=== PATIENT | female | born 1985 | race Caucasian/White ===

== ENCOUNTER 2024-07-16 15:26 | Emergency (ER) | payer OTHER ==
[~2024-07-16] VITALS: Ht 160 cm; Wt 130.5 kg
--- NOTE | 2024-07-16 16:11 | ED.PDOC ---
HPI Comments 38 y/o F, presents to the ED for CC of right rib pain. Patient states, that she has been experiencing right rib pain at the mid axillary line in her lower ribcage area. Pain is is worse with deep inspiration. Today patient checked her blood pressure and it was elevated which is not normal for her. She is not on any blood pressure medications. Pain is nonradiating. Denies any fall or trauma or injury or heavy lifting. Patient took some ibuprofen for her pain which helped a little bit. Patient has also had an episode of fluttering that lasted no more than two beats and resolved. 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 Initial Vitals: Temp:97.6 BP:195/99 HR:96 RR:18 O2 Sat.:98 Past Medical History: CONGENITAL HEART DEFECT Past Surgical History: OPEN HEART SURGERY Social History: Denies smoking, ETOH, and drug use Medication: Denies Allergies: PCN, SULFA HPI: Poor Historian. REVIEW OF SYSTEMS: CONSTITUTIONAL: Denies acute: fever, diaphoresis, chills, generalized weakness. HEAD: Denies acute: headache, photophobia Eyes: Denies acute: Double vision, vision loss, eye pain, eye discharge. EARS: Denies acute: tinnitus, hearing loss, ear discharge, ear pain, THROAT: Denies acute: sore throat, swelling, difficulty swallowing , pain with swallowing, change in voice. NECK: Denies acute: neck pain, neck swelling, stiff neck. HEART: Denies acute : chest pain, palpitations, LUNGS: Denies acute: SOB, wheezing, cough, hemoptysis ABDOMEN: Denies acute: abdominal pain, Nausea, Vomiting, diarrhea, melena , hematemesis, hematochezia SKIN: Denies acute: rash, redness, lesions, itchiness. EXTREMITIES: Denies acute: calf pain, numbness, tingling, weakness, denies pain in extremity. Denies acute: Low back pain. Neuro: Denies acute: focal neurological deficit, motor or sensory focal neurological deficit, tremors, seizure like activity, confusion, dizziness, change in mental status, loss of bowel or bladder function, cauda equina like symptoms. : Denies acute: dysuria, hematuria, flank pain, increase in urinary frequency. PSYCH: Denies acute: hallucination, suicidal ideation, homicidal ideation. FEMALE: Denies acute: abnormal vaginal bleeding, foul odor, unusual discharge. PHYSICAL EXAM: General: no acute distress, awake and alert. Head: normocephalic, atraumatic. Neck: supple, trachea is midline, no swelling. Throat: Normal phonation. Eyes:, no erythema, no purulent discharge, no proptosis, no icterus. Heart: regular rate, regular rhythm, no significant murmur appreciated. Lungs: no apparent respiratory distress, Able to speak in full sentences. No wheezing, no rhonchi, no crackles. No stridors Clear to auscultation bilaterally. Abdomen: non tender to palpation, non distended, soft, no guarding, no rebound, + bowel sounds. Obese Palpation of the area of the ribcage where she points where her pain is is tenderness to palpation. Neuro: Awake, Alert, oriented to name, self, situation, follows commands GCS=15. Speech is normal. Skin: no petechia, no purpura, no cyanosis, non-pale, not jaundice. Lower extremities: --no - Pitting edema no deformity, no focal swelling, no calf TTP. Makes eye contact. moves all four extremities. Face: no apparent facial droop. Ambulating in the ED independently. Chief Complaint: Rib Pain Time Seen by MD: 15:57 Reviewed Notes: Nurses Notes, Medications, Allergies Allergies: Coded Allergies: Penicillins (Verified Allergy, Unknown, 07/16/24) Sulfa Antibiotics (Verified Allergy, Unknown, 07/16/24) Information Source: Patient Mode of Arrival: Ambulatory Severity: Moderate Timing: Days Duration: Since onset Prehospital treatment: None Cardiac Risk Factors: None PE Risk Factors: None Was a procedure done? Was a procedure done?: No CP Differential Dx Differential Diagnosis: N/A Differential Diagnosis: Angina, Cholelithiasis, Costochondritis, Other (Ddx include but not limitied to gastritis, musculoskeletal pain, radiculopathy, atypical chest pain, dissection, aneurysm, ACS, unstable angina, hiatal hernia, GERD, anxiety, costochondritis, PE, pneumothroax, neoplasm, cardiac ischemia, drug abuse, anemia.) X-Ray, Labs, Meds, VS Vital Signs Date Time Temp Pulse Resp B/P (MAP) Pulse Ox O2 Delivery O2 Flow Rate FiO2 07/17/24 01:20 98.0 74 20 159/96 (117) 98 98.0 07/17/24 00:59 82 145/101 07/16/24 22:57 83 153/113 07/16/24 22:54 83 17 153/113 (126) 95 07/16/24 22:37 98.3 88 18 185/106 (132) 96 98.3 07/16/24 17:22 160/82 07/16/24 17:22 81 16 160/82 (108) 96 07/16/24 16:23 96 16 96 Room Air* 0 21 07/16/24 16:23 98.3 96 16 162/116 (131) 96 98.3 07/16/24 16:22 162/116 07/16/24 15:39 97.6 96 18 179/97 (124) 98 Lab Test 07/16/24 17:47 07/16/24 16:24 07/16/24 16:13 Range/Units Troponin I High Sensitivity 5 5 </=34 ng/L White Blood Count 10.5 4.4-10.8 10^3/uL Red Blood Count 4.89 4.0-5.20 10^6/uL Hemoglobin 14.3 12.2-16.2 g/dL Hematocrit 43.5 36.0-46.0 % Mean Corpuscular Volume 89.0 80.0-100.0 fL Mean Corpuscular Hemoglobin 29.2 28.0-32.0 pg Mean Corpuscular Hemoglobin Concent 32.9 32.0-36.0 g/dL Red Cell Distribution Width 14.8 H 11.8-14.3 % Platelet Count 354 140-450 10^3/uL Mean Platelet Volume 7.9 6.9-10.8 fL Neutrophils (%) (Auto) 74.6 37.0-80.0 % Lymphocytes (%) (Auto) 17.0 10.0-50.0 % Monocytes (%) (Auto) 6.3 0.0-12.0 % Eosinophils (%) (Auto) 1.1 0.0-7.0 % Basophils (%) (Auto) 1.0 0.0-2.0 % Neutrophils # (Auto) 7.8 1.6-8.6 10 ^3/uL Lymphocytes # (Auto) 1.8 0.4-5.4 10 ^3/uL Monocytes # (Auto) 0.7 0-1.3 10 ^3/uL Eosinophils # (Auto) 0.1 0-0.8 10 ^3/uL Basophils # (Auto) 0.1 0-0.2 10 ^3/uL Nucleated Red Blood Cells 0.0 % D-Dimer, Quantitative 0.51 H 0.0-0.49 mg/L FEU Sodium Level 140 136-145 mmol/L Potassium Level 4.4 3.5-5.1 mmol/L Chloride Level 107 98-107 mmol/L Carbon Dioxide Level 25 20-31 mmol/L Anion Gap 8 5-15 Blood Urea Nitrogen 24 H 9-23 mg/dL Creatinine 0.84 0.550-1.02 mg/dL Glomerular Filtration Rate Calc 92 >90 mL/min BUN/Creatinine Ratio 28.6 H 10.0-20.0 Serum Glucose 104 74-106 mg/dL Lactic Acid Level 1.1 0.4-2.0 mmol/L Calcium Level 9.7 8.7-10.4 mg/dL Magnesium Level 2.1 1.6-2.6 mg/dL Total Bilirubin 0.3 0.2-1.0 mg/dL Aspartate Amino Transferase (AST) 17 13-40 U/L Alanine Aminotransferase (ALT) 20 7-40 U/L Alkaline Phosphatase 102 46-116 U/L Total Protein 7.0 5.7-8.2 g/dL Albumin 4.6 3.2-4.8 g/dL Urine Color Light-yellow Yellow Urine Clarity Clear Clear Urine pH 6.5 5.0-9.0 Urine Specific [place] 1.024 1.001-1.035 Urine Protein Negative Negative Urine Ketones Negative Negative Urine Blood 2+ H Negative /uL Urine Nitrite Negative Negative Urine Bilirubin Negative Negative Urine Urobilinogen Normal Negative mg/dL Urine Leukocyte Esterase Negative Negative /uL Urine RBC 55 0 - 4 /hpf Urine Microscopic WBC 3 0-5 /HPF Urine Squamous Epithelial Cells Few <5 /hpf Urine Bacteria None seen None Seen /hpf Urine Glucose Normal Normal mg/dL Urine Test Negative Negative Urine Opiates Screen Neg NEGATIVE Urine Fentanyl Screen Neg NEGATIVE Urine Barbiturates Screen Neg NEGATIVE Urine Phencyclidine Screen Neg NEGATIVE Urine Amphetamines Screen Neg NEGATIVE Urine Benzodiazepines Screen Neg NEGATIVE Urine Cocaine Screen Neg NEGATIVE Urine Cannabinoids Screen Neg NEGATIVE [facility] [id number] [facility] [address] Ph: [phone] DIAGNOSTIC IMAGING Diagnostic Imaging Report : [id number] Signed PATIENT: AMEYA BARRON ACCT: [id number] UNIT: [id number] : 1985 LOC: ER ROOM / BED: / AGE / SEX: 38 / F ADM STATUS: REG ER SERVICE 1540 ORDERING PHYSICIAN: SHE LEVINE DO PROCEDURE(s): CXRP - CHEST PORTABLE REASON: r RIB PAIN, PALPITATION ORDER NUMBER(s): [id number], ACCESSION NUMBER(s): [id number] CHEST RADIOGRAPH Indication: r RIB PAIN, PALPITATION Technique: Single frontal view of the chest was obtained COMPARISON: None FINDINGS: Lines and Tubes: Median sternotomy Lungs: Mild congestion Pleura: No effusion. No pneumothorax. Cardiomediastinal contours: Unremarkable Bones: Unremarkable IMPRESSION: Mild diffuse congestion. No definite appreciable displaced right rib fracture. ATED BY: JUNAID MARTINS MD DICTATED DATE/TIME: 07/16/241642 SIGNED BY: JUNAID MARTINS MD SIGNED DATE/TIME: 07/16/241642 CC: Time of 1ST Reevaluation: 16:27 Reevaluation 1ST: Unchanged Patient Education/Counseling: Diagnosis, Treatment Family Education/Counseling: Other Comments Patient presented with the above HPI.-- RIB PAIN ---workup was initiated. patient was found with the above mentioned diagnosis. the following medications were ordered: NITROGLYCERIN SUBLINGUAL, KETOROLAC INJECTION the following tests were ordered: LABS, EKG, CXR Patient ED course and VS have been stabilized. Patient has been reassessed in the ED and remained in a stable condition. Pertinent incidental findings were discussed with the patient and/or family. Patient/family voices understanding and is agreeable with plan. Patient has been observed in the ED adequate length of time to insure improvement/stability. Escalation of care considered: Consideration of escalation to observation or admission Patient was ADMITTED to the medicine team for further evaluation and treatment of their presentation. Patient was DISCHARGED home in a stable condition. All the reports of any imaging studies that were ordered by myself were reviewed by myself. Departure 1 Departure Time of Disposition: 22:33 Impression: Primary Impression: Chest pain Additional Impressions: Abnormal finding on CT scan Hypertension Adrenal mass Disposition: HOME / SELF CARE / HOMELESS Condition: Stable Additional Instructions: Additional discharge instructions: You MUST follow-up with your primary care/family doctor in 1 to 2 days. If you are unable to see your primary care/family doctor, please return to our emergency room for re-assessment and re-evaluation in 1 to 2 days. Return to the emergency room here in our facility or to the nearest ER [facility] if your symptoms change or worsen. CONSULTATIONS: you MUST Follow-up for consultation as soon as possible with: -cardiology in 1-2 days. Please call for appointment. You MUST call the consultants office yourself to make an appointment. You may need to arrange that through your insurance and/or your primary/family doctor. If you are unable to see the clinical science consultant in 1 to 2 days, you must return to our emergency room (or any other ER of your choice) for re-assessment and re- evaluation. Adequate fluid hydration. Or your blood pressure at home at least 3 times a day. Make sure we have the right blood pressure cuff size. Salt restrictions. Below is a copy of your radiological report for follow up: [place] [address] Ph: [phone] DIAGNOSTIC IMAGING Diagnostic Imaging Report : [id number] Signed PATIENT: AMEYA BARRON ACCT: [id number] UNIT: [id number] : 1985 LOC: ER ROOM / BED: / AGE / SEX: 38 / F ADM STATUS: REG ER SERVICE 1540 ORDERING PHYSICIAN: SHE LEVINE DO PROCEDURE(s): CXRP - CHEST PORTABLE REASON: r RIB PAIN, PALPITATION ORDER NUMBER(s): [id number], ACCESSION NUMBER(s): [id number] CHEST RADIOGRAPH Indication: r RIB PAIN, PALPITATION Technique: Single frontal view of the chest was obtained COMPARISON: None FINDINGS: Lines and Tubes: Median sternotomy Lungs: Mild congestion Pleura: No effusion. No pneumothorax. Cardiomediastinal contours: Unremarkable Bones: Unremarkable IMPRESSION: Mild diffuse congestion. No definite appreciable displaced right rib fracture. ATED BY: JUNAID MARTINS MD DICTATED DATE/TIME: 07/16/241642 SIGNED BY: JUNAID MARTINS MD SIGNED DATE/TIME: 07/16/241642 CC: [place] [id number] Ph: [phone] DIAGNOSTIC IMAGING Diagnostic Imaging Report : [id number] Signed PATIENT: AMEYA BARRON ACCT: [id number] UNIT: [id number] : 1985 LOC: ER ROOM / BED: / AGE / SEX: 38 / F ADM STATUS: REG ER SERVICE 51 ORDERING PHYSICIAN: SHE LEVINE DO PROCEDURE(s): CTACH - CT ANGIO CHEST CONTRAST REASON: r rib pain ORDER NUMBER(s): [id number], ACCESSION NUMBER(s): [id number] CLINICAL HISTORY: r rib pain TECHNIQUE: CT angiogram of the chest was performed with intravenous contrast. [ 3D MIP reconstructed images were created and archived on the PACS system. This exam was performed according to our departmental dose optimization program. Up-to-date CT equipment and radiation dose reduction techniques are utilized as appropriate. WID: COMPARISON: None FINDINGS: Lower Neck: Unremarkable Axilla, Mediastinum and Madalyn: Unremarkable. Heart and Great Vessels: Upper limits of normal-sized heart without pericardial effusion. Common origin of the left common carotid and right brachiocephalic artery, normal variant. The thoracic aorta is patent and normal caliber. Upper limits of normal caliber main pulmonary artery. There is no central, segmental, or definite subsegmental pulmonary artery filling defect to suggest pulmonary embolism. Airway, Lungs and Pleura: The trachea and central airways are patent. There is a calcified granuloma in the left upper lobe. There is no airspace consolidation, pleural effusion, or pneumothorax. Chest Wall and Osseous Structures: Chronic appearing deformity of the right humeral head which may be from chronic fracture, partially imaged. Prior median sternotomy. A few healed right rib fracture deformities. No destructive osseous lesion. Bilateral breast implants in place Upper abdomen: There is a 3.1 x 3.3 cm mass in the left adrenal gland on series 2 image 230. IMPRESSION: 1. No evidence of pulmonary embolism or acute abnormality in the chest. 2. A few healed right rib fracture deformities and chronic appearing fracture deformity of the right humeral head partially imaged. 3. Left adrenal gland mass measuring up to 3.3 cm which could reflect an adenoma. Consider obtaining contrast-enhanced MRI or CT abdomen (adrenal mass protocol) on a nonemergent / outpatient basis for characterization. ATED BY: ANNA LOPEZ MD DICTATED DATE/TIME: 07/16/242145 SIGNED BY: ANNA LOPEZ MD SIGNED DATE/TIME: 07/16/242145 CC: Discharged With: Self Stability Stability form required: No Heart Score Heart Score: Heart Score Response (Comments) Value History Slightly Suspicious 0 EKG Normal 0 Age <45 0 Risk Factors 1 or 2 risk factors 1 Troponin Normal limit 0 Total 1 I personally scribed for SHE LEVINE DO ([email or web address]) on 07/16/24 at 16:11. Electronically submitted by Christin Michel ([email or web address]). I personally scribed for SHE LEVINE DO ([email or web address]) on 07/16/24 at 17:31. Electronically submitted by Christin Michel ([email or web address]). SHE LEVINE DO Jul 16, 2024 16:11
[2024-07-16 16:16] LABS: Urine Bacteria None Seen /hpf (None Seen)
[2024-07-16] MEDS: NITROGLYCERIN 0.4 MG SL TAB SL ONE ×2 (16:22→22:50)
[2024-07-16 16:23] VITALS: PULSE 96; RESP 16; O2SAT 96
[2024-07-16 16:30] LABS: Opiate Scree,Urine Neg (NEGATIVE); Urine Blood 2+ /uL (Negative); Urine Clarity Clear (Clear); Urine Color Light-Yellow (Yellow); Urine Protein, UAD Negative (Negative); Urine Specific Gravity 1.024 (1.001-1.035); Urine Squamous Epithelial Cell FEW /hpf (<5); Urine Urobilinogen Normal (Negative); Urine WBC 3 /HPF (0-5); Urine pH 6.5 (5.0-9.0)
[2024-07-16 16:31] LABS: Amphetamine Screen, Urine Neg (NEGATIVE); Barbiturate Scree,Urine Neg (NEGATIVE); Benzodiazephine Screen, Urine Neg (NEGATIVE); Cannabinoid Screen, Urine Neg (NEGATIVE); Cocaine Screen, Urine Neg (NEGATIVE); Phencyclidine Screen, Urine Neg (NEGATIVE)
[2024-07-16 16:39] LABS: Basophils # (auto) 0.1 10 ^3/uL (0-0.2); Eosinophils # (auto) 0.1 10 ^3/uL (0-0.8); Eosinophils % (auto) 1.1 % (0.0-7.0); Hematocrit 43.5 % (36.0-46.0); Hemoglobin 14.3 g/dL (12.2-16.2); Lymphocytes # (auto) 1.8 10 ^3/uL (0.4-5.4); Mean Corpuscular Hemoglobin 29.2 pg (28.0-32.0); Mean Corpuscular Hgb Conc. 32.9 g/dL (32.0-36.0); Monocytes # (auto) 0.7 10 ^3/uL (0-1.3); Monocytes % (auto) 6.3 % (0.0-12.0); Neutrophils # (auto) 7.8 10 ^3/uL (1.6-8.6); Neutrophils % (auto) 74.6 % (37.0-80.0); Platelet Count (auto) 354 10^3/uL (140-450); Red Blood Cells 4.89 10^6/uL (4.0-5.20); Red Cell Distribution Width 14.8 % (11.8-14.3); White Blood Cell 10.5 10^3/uL (4.4-10.8)
--- NOTE | 2024-07-16 16:47 | DVH ---
CHEST RADIOGRAPH Indication: r RIB PAIN, PALPITATION Technique: Single frontal view of the chest was obtained COMPARISON: None FINDINGS: Lines and Tubes: Median sternotomy Lungs: Mild congestion Pleura: No effusion. No pneumothorax. Cardiomediastinal contours: Unremarkable Bones: Unremarkable IMPRESSION: Mild diffuse congestion. No definite appreciable displaced right rib fracture.
[2024-07-16 16:57] LABS: Alanine Aminotransferase 20 U/L (7-40); Albumin 4.6 g/dL (3.2-4.8); Alkaline Phosphatase 102 U/L (46-116); Anion Gap 8 (5-15); Aspartate Aminotransferase 17 U/L (13-40); BUN/Creatinine Ratio 28.6 (10.0-20.0); Calcium 9.7 mg/dL (8.7-10.4); Carbon Dioxide 25 mmol/L (20-31); Chloride 107 mmol/L (98-107); Glucose 104 mg/dL (74-106); Magnesium 2.1 mg/dL (1.6-2.6); Potassium 4.4 mmol/L (3.5-5.1); Sodium 140 mmol/L (136-145)
[2024-07-16 17:02] LABS: Bilirubin, Total 0.3 mg/dL (0.2-1.0); Blood Urea Nitrogen 24 mg/dL (9-23)
[2024-07-16] MEDS: KETOROLAC TROMETH 60MG/2ML VIAL IV ONE (17:58)
--- NOTE | 2024-07-16 21:49 | DVH ---
CLINICAL HISTORY: r rib pain TECHNIQUE: CT angiogram of the chest was performed with intravenous contrast. [ 3D MIP reconstructed images were created and archived on the PACS system. This exam was performed according to our [facility] ental dose optimization program. Up-to-date CT equipment and radiation dose reduction techniques are utilized as appropriate. WID: COMPARISON: None FINDINGS: Lower Neck: Unremarkable Axilla, Mediastinum and Madalyn: Unremarkable. Heart and Great Vessels: Upper limits of normal-sized heart without pericardial effusion. Common orig in of the left common carotid and right brachiocephalic artery, normal variant. The thoracic aorta i s patent and normal caliber. Upper limits of normal caliber main pulmonary artery. There is no centra l, segmental, or definite subsegmental pulmonary artery filling defect to suggest pulmonary embolism. Airway, Lungs and Pleura: The trachea and central airways are patent. There is a calcified granuloma in the left upper lobe. There is no airspace consolidation, pleural effusion, or pneumothorax. Chest Wall and Osseous Structures: Chronic appearing deformity of the right humeral head which may be from chronic fracture, partially imaged. Prior median sternotomy. A few healed right rib fracture de formities. No destructive osseous lesion. Bilateral breast implants in place Upper abdomen: There is a 3.1 x 3.3 cm mass in the left adrenal gland on series 2 image 230. IMPRESSION: 1. No evidence of pulmonary embolism or acute abnormality in the chest. 2. A few healed right rib fracture deformities and chronic appearing fracture deformity of the right humeral head partially imaged. 3. Left adrenal gland mass measuring up to 3.3 cm which could reflect an adenoma. Consider obtaining contrast-enhanced MRI or CT abdomen (adrenal mass protocol) on a nonemergent / outpatient basis for c haracterization.
--- NOTE | 2024-07-16 22:21 | ECG ---
[facility] Test Date: 2024-07-16 Test Time: 15:44:30 Pat Name: AMEYA BARRON Department: ER Room: Gender: F Manager Branch: [facility] : 1985 Requested By: SHE LEVINE Order Number: [id number] Reading MD: Lito Parrish Measurements Intervals [place] Rate: 87 P: 50 HI: 157 QRS: 10 QRSD: 70 T: 64 QT: 352 QTc: 424 Interpretive Statements Sinus rhythm Probable left atrial enlargement Low voltage, precordial leads ST elev, probable normal early repol pattern Electronically Signed On 07-17-2024 8:55:45 PST by Lito Parrish Please click the below link to view image of tracing.
[2024-07-16] MEDS: LABETALOL HCL 20 MG/4 ML VL IV ONE (22:57)
[2024-07-17] MEDS: LABETALOL HCL 20 MG/4 ML VL IV ONE (00:59)
[2024-07-17 01:20] VITALS: BP 159/96; PULSE 74; RESP 20; TEMP 98; O2SAT 98
== END 2024-07-17 01:32 | disposition home or self-care (01) ==
LOC: ER 15:26
DX: R07.89 Other chest pain (principal); I10 Essential (primary) hypertension; E27.9 Disorder of adrenal gland, unspecified; Z87.74 Personal history of (corrected) congenital malformations of heart and circulatory system; Z88.0 Allergy status to penicillin; Z88.2 Allergy status to sulfonamides
CPT/HCPCS: 36415; 71045; 71275; 80053; 80307; 81001; 81025; 83605; 83735; 84484; 85025; 85379; 93005; 96374; 96375; 96376; 99285; J1885

== ENCOUNTER → 2025-05-08 | Outpatient (CLI) | payer OTHER ==
[~2025-05-08] VITALS: Ht 160 cm; Wt 108.9 kg
[~2025-05-08] MED LIST: AMLO1TAB21 PO
[2025-05-08 11:34] LABS: Hematocrit 42.0 % (36.0-46.0); Hemoglobin 14.0 g/dL (12.2-16.2); Mean Corpuscular Hemoglobin 28.8 pg (28.0-32.0); Mean Corpuscular Volume 86.3 fL (80.0-100.0); Nucleated Red Blood Cells % 0.1 %
[2025-05-08 11:47] LABS: INR 0.97 (0.9-1.15); Partial Thromboplastin Time 30.9 SEC (24.5-34.5); Prothrombin Time 10.3 sec (9.3-11.8)
[2025-05-08 11:50] LABS: Alanine Aminotransferase 28 U/L (7-40); Alkaline Phosphatase 98 U/L (46-116); Anion Gap 11 (5-15); BUN/Creatinine Ratio 20.6 (10.0-20.0); Blood Urea Nitrogen 20 mg/dL (9-23); Calcium 9.7 mg/dL (8.7-10.4); Carbon Dioxide 25 mmol/L (20-31); Chloride 104 mmol/L (98-107); Glucose 104 mg/dL (74-106); Potassium 4.0 mmol/L (3.5-5.1); Sodium 140 mmol/L (136-145); Total Protein 7.9 g/dL (5.7-8.2)
[2025-05-08 11:51] LABS: Albumin 4.7 g/dL (3.2-4.8); Bilirubin, Total 0.4 mg/dL (0.2-1.0)
--- NOTE | 2025-05-15 09:53 | ECG ---
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
== END | disposition home or self-care (01) ==
LOC: LAB 11:03 → EDSTATUS 05-13 15:56
PROVIDERS: ATTEND Urology
DX: Z01.812 Encounter for preprocedural laboratory examination (principal); N20.0 Calculus of kidney
CPT/HCPCS: 36415; 80053; 85025; 85610; 85730; 93005

== ENCOUNTER 2025-05-13 11:21 | Inpatient (IN) | payer OTHER ==
[~2025-05-13] VITALS: Ht 154.9 cm; Wt 119.5 kg
--- NOTE | 2025-05-13 11:51 | ED.PDOC ---
General HPI Comments 39 y/o F, presents to the ED for CC of flank pain. Patient states, she was sent by urologist () for a CT Scan following renal stent placement. Patient reports, she had a renal stent placed on 04/14/25 and has since, been experiencing flank and bladder pain along with associated symptoms of dysuria. Patient relays, pain to be "sharp" and "constant" in nature, rating it a 8/10 on the pain scale. Patient denies nausea, vomiting, chills, or fever. No other symptoms or modifying factors are present at this time. Chief Complaint: Flank Pain Time Seen by MD: 11:45 Reviewed notes: Nurses Notes, Medications, Allergies Allergies: Coded Allergies: Penicillins (Verified Allergy, Unknown, 07/16/24) Sulfa Antibiotics (Verified Allergy, Unknown, 07/16/24) Home Meds Reported Medications Amlodipine Besylate (Amlodipine Besylate) 2.5 Mg Tab, PO DAILY, TAB 05/08/25 Information Source: Patient Mode of Arrival: Ambulatory Severity: Moderate Timing: Days Duration: Since onset Prehospital treatment: None Onset: Other (following procedure) Symptoms: Dysuria History of: Kidney stone Modifying factors: None associated signs and symptoms: Flank Pain, Dysuria Past Medical History PAST MEDICAL HISTORY: Kidney Stones Surgical History: Denies all surgeries SCREW DOWN History: Denies all SCREW DOWN Hx Family History Family History: Unknown Social History Smoker: Non-Smoker Alcohol: Denies ETOH Use Drugs: Denies Drug Use Lives In: Home Constitutional: denies: chills, diaphoresis, fatigue, fever, malaise, sweats, weakness, others EENTM: denies: blurred vision, double vision, ear bleeding, ear discharge, ear drainage, ear pain, ear ringing, eye pain, eye redness, hearing loss, mouth pain, mouth swelling, nasal discharge, nose bleeding, nose congestion, nose pain, photophobia, tearing, throat pain, throat swelling, voice changes, others Respiratory: denies: cough, hemoptysis, orthopnea, SOB at rest, shortness of breath, SOB with excertion, stridor, wheezing, others Cardiovascular: denies: chest pain, dizzy spells, diaphoresis, Dyspnea on exertion, edema, irregular heart beat, left arm pain, lightheadedness, palpitations, PND, syncope, others Gastrointestinal: denies: abdomen distended, abdominal pain, blood streaked bowels, constipated, diarrhea, dysphagia, difficulty swallowing, hematemesis, melena, nausea, poor appetite, poor fluid intake, rectal bleeding, rectal pain, vomiting, others Genitourinary: reports: dysuria, flank pain; denies: abnormal vagina bleeding, burning, dyspareunia, frequency, hematuria, incontinence, pain, , vagina discharge, urgency, others Neurological: denies: dizziness, fainting, headache, left sided numbness, left sided weakness, numbness, paresthesia, pre-existing deficit, right sided numbness, right sided weakness, seizure, speech problems, tingling, tremors, weakness, others Musculoskeletal: denies: back pain, gout, joint pain, joint swelling, muscle pain, muscle stiffness, neck pain, others Integumetry: denies: bruises, change in color, change in hair/nails, dryness, laceration, lesions, lumps, rash, wounds, others Allergic/Immunocompromised: denies: Difficulty Healing, Frequent Infections, Hives, Itching, others Hematologic/Lymphatic: denies: anemia, blood clots, easy bleeding, easy bruising, swollen glands, others Endocrine: denies: excessive hunger, excessive sweating, excessive thirst, excessive urination, flushing, intolerance to cold, intolerance to heat, unexplained weight gain, unexplained weight loss, others Psychiatric: denies: anxiety, bipolar disorder, depression, hopeless, panic disorder, schizophrenia, sleepless, suicidal, others All Other Systems: Reviewed and Negative Physical Exam General Appearance: Moderate Distress HEENT: Normal ENT Inspection, Pharynx Normal, TMs Normal Neck: Full Range of Motion, Non-Tender, Normal, Normal Inspection Respiratory: Chest Non-Tender, Lungs Clear, No Accessory Muscle Use, No Respiratory Distress, Normal Breath Sounds Cardiovascular: No Edema, No JVD, No Murmur, No Gallop, Normal Peripheral Pulses, Regular Rate/Rhythm Breast Exam: Deferred Gastrointestinal: Soft Genitalia: Deferred Pelvic: Deferred Rectal: Deferred Extremities: No calf tenderness, Normal capillary refill, Normal inspection, Normal range of motion, Non-tender, No pedal edema Musculoskeletal : Apperance: Normal Neurologic: Alert, rat trapper II-XII nml as Tested, No Motor Deficits, Normal Affect, Normal Mood, No Sensory Deficits Cerebellar Function: Normal Reflexes: Normal Skin: Dry, Normal Color, Warm Peripheral Pulses: 3+ Radial (R), 3+ Radial (L) Lymphatic: No Adenopathy Was a procedure done? Was a procedure done?: No Differential Diagnosis Kidney stone (Female): Pyelonephritis, Strain, Urinary obstruction, Urolithiasis X-Ray, Labs, Meds, VS Vital Signs Date Time Temp Pulse Resp B/P (MAP) Pulse Ox O2 Delivery O2 Flow Rate FiO2 05/13/25 13:20 92 18 129/76 (93) 98 05/13/25 11:23 97.9 89 18 124/54 98 97.9 Lab Test 05/13/25 13:03 05/13/25 12:08 Range/Units White Blood Count Pending Red Blood Count Pending Hemoglobin Pending Hematocrit Pending Mean Corpuscular Volume Pending Mean Corpuscular Hemoglobin Pending Mean Corpuscular Hemoglobin Concent Pending Red Cell Distribution Width Pending Platelet Count Pending Mean Platelet Volume Pending Neutrophils (%) (Auto) Pending Lymphocytes (%) (Auto) Pending Monocytes (%) (Auto) Pending Basophils (%) (Auto) Pending Neutrophils # (Auto) Pending Lymphocytes # (Auto) Pending Monocytes # (Auto) Pending Sodium Level Pending Potassium Level Pending Chloride Level Pending Carbon Dioxide Level Pending Anion Gap Pending Blood Urea Nitrogen Pending Creatinine Pending Glomerular Filtration Rate Calc Pending BUN/Creatinine Ratio Pending Serum Glucose Pending Calcium Level Pending Urine Color Yellow Yellow Urine Clarity Turbid H Clear Urine pH 5.5 5.0-9.0 Urine Specific [place] 1.024 1.001-1.035 Urine Protein 1+ H Negative Urine Ketones Negative Negative Urine Blood 3+ H Negative /uL Urine Nitrite Negative Negative Urine Bilirubin Negative Negative Urine Urobilinogen Normal Negative mg/dL Urine Leukocyte Esterase 2+ Negative /uL Urine RBC 450 0 - 4 /hpf Urine Microscopic WBC 35 H 0-5 /HPF Urine Squamous Epithelial Cells Mod <5 /hpf Urine Bacteria Few H None Seen /hpf Urine Mucus Few None Seen Urine Glucose Normal Normal mg/dL Patient alert. Complaining of flank pain. Has been having these symptoms for many weeks. Vitals stable. Answering questions. CT scan of the abdomen reviewed does show stent to be migrating. Urinalysis shows UTI. Establish intravenous access. Was given fluids. Was given Rocephin. Reviewed her previous visit. Explained to the patient. Continue monitoring. [address] [address] Ph: [phone] DIAGNOSTIC IMAGING Diagnostic Imaging Report : [id number] Signed PATIENT: AMEYA BARRON ACCT: [id number] UNIT: [id number] : 1985 LOC: ER ROOM / BED: / AGE / SEX: 39 / F ADM STATUS: REG ER SERVICE 1147 ORDERING PHYSICIAN: SONIA PEREIRA MD PROCEDURE(s): ABPL - CT AB PEL WO CON-NO ORAL OR IV REASON: ureterstent ORDER NUMBER(s): [id number], ACCESSION NUMBER(s): [id number] EXAM: CT CT AB PEL WO CON-NO ORAL OR IV HISTORY: ureterstent COMPARISON: None TECHNIQUE: Helical CT images of the abdomen and pelvis were performed without IV contrast. Sagittal and coronal reformatted images were obtained. This CT exam was performed using one or more of the following dose reduction techniques: Automated exposure control, adjustment of the mA and/or kv according to patient size, or the use of iterative reconstruction techniques. Radiation Dose: Abdomen/Pelvis: CTDIvol 26.04 mGy, DLP 1411.3 mGy*cm. FINDINGS: CT abdomen: There are postoperative changes of median sternotomy and bilateral breast implants, not fully imaged here. There are multiple old right lower rib fractures. There is an 11 mm lingular noncalcified pulmonary nodule (image 8, series 2). There is mild elevation of the right hemidiaphragm. The heart is not enlarged. The noncontrast liver, spleen, gallbladder, pancreas, left kidney, and bilateral adrenal glands are unremarkable. There are multiple subcentimeter nonobstructing right renal calculi. There is a left upper quadrant splenule. No abdominal aortic aneurysm. CT pelvis: No abnormal bowel dilatation, free air, or free fluid. There is a left ureteral stent with the proximal pigtail in the distal ureter and of the majority of the stent in the urinary bladder lumen. The appendix is not dilated. IMPRESSION: 1. Lingular 11 mm noncalcified pulmonary nodule. Recommend follow-up outpatient CT scan of the chest for better characterization. 2. Postoperative changes of median sternotomy, bilateral breast implants, and left ureteral stent. The left ureteral stent has migrated distally. Recommend urology consultation. 3. Nonobstructing right nephrolithiasis. 4. No evidence of bowel obstruction, acute appendicitis, or other acute process in the abdomen or pelvis. ATED BY: EDY HOPKINS MD DICTATED DATE/TIME: 05/13/251248 SIGNED BY: EDY HOPKINS MD SIGNED DATE/TIME: 05/13/251248 CC: Time of 1ST Reevaluation: 12:15 Reevaluation 1ST: Unchanged Patient Education/Counseling: Diagnosis, Treatment Family Education/Counseling: No Family Present SEPSIS Sepsis Screen Date sepsis recognized/suspect: May 13, 2025 Time Sepsis recognized/suspect: 1126 Recent Procedure: No On Antibiotic Therapy: No Respiratory Rate >20: No Heart Rate >90: No Temp<36 C (96.8 F) or >38.3 C: No SBP <90 or MAP <65 mmHG: No New Acute Mental Status Change: No Is the patient on CPAP, BIPAP,: No Physician Orders Complete Blood Count (05/13/25 11:47) Ct Ab Pel Wo Con-No Oral Or Iv (05/13/25 11:47) Basic Metabolic Panel (05/13/25 11:47) Urine Bacterial Culture (05/13/25 13:10) Ceftriaxone 1gm/50ml (Rocephin) (05/13/25 13:15) Sodium Chloride 0.9% (05/13/25 13:15) Sodium Chloride 0.9% (05/13/25 13:15) Vital Signs Date Time Temp Pulse Resp B/P (MAP) Pulse Ox O2 Delivery O2 Flow Rate FiO2 05/13/25 13:20 92 18 129/76 (93) 98 05/13/25 11:23 97.9 89 18 124/54 98 97.9 Laboratory Tests Test 05/13/25 13:03 White Blood Count Pending Departure 1 Departure Time of Disposition: 13:10 Impression: Primary Impression: Sepsis due to Acinetobacter Disposition: ADMITTED INPATIENT Admit to: Med Surg Condition: Guarded Critical Care Note Critical Care Time?: Yes (90 min-critical care time only) Stability Stability form required: No Heart Score Heart Score: Heart Score Response (Comments) Value History N/A 0 EKG N/A 0 Age N/A 0 Risk Factors N/A 0 Troponin N/A 0 Total 0 I personally scribed for SONIA PEREIRA MD ([email or web address]) on 05/13/25 at 11:51. Electronically submitted by Christin Michel [email or web address]). I personally scribed for SONIA PEREIRA MD ([email or web address]) on 05/13/25 at 13:37. Electronically submitted by Christin Michel ([email or web address]). SONIA PEREIRA MD May 13, 2025 11:51
--- NOTE | 2025-05-13 12:51 | DVH ---
EXAM: CT CT AB PEL WO CON-NO ORAL OR IV HISTORY: ureterstent COMPARISON: None TECHNIQUE: Helical CT images of the abdomen and pelvis were performed without IV contrast. Sagittal and coronal reformatted images were obtained. This CT exam was performed using one or more of the following dose reduction techniques: Automated exposure control, adjustment of the mA and/or kv according to patient size, or the use of iterative reconstruction techniques. Radiation Dose: Abdomen/Pelvis: CTDIvol 26.04 mGy, DLP 1411.3 mGy*cm. FINDINGS: CT abdomen: There are postoperative changes of median sternotomy and bilateral breast implants, not fully imaged here. There are multiple old right lower rib fractures. There is an 11 mm lingular noncalcified pulmonary nodule (image 8, series 2). There is mild elevation of the right hemidiaphragm. The heart is not enlarged. The noncontrast liver, spleen, gallbladder, pancreas, left kidney, and bilateral adrenal glands are unremarkable. There are multiple subcentimeter nonobstructing right renal calculi. There is a left upper quadrant splenule. No abdominal aortic aneurysm. CT pelvis: No abnormal bowel dilatation, free air, or free fluid. There is a left ureteral stent with the proximal pigtail in the distal ureter and of the majority of the stent in the urinary bladder lumen. The appendix is not dilated. IMPRESSION: 1. Lingular 11 mm noncalcified pulmonary nodule. Recommend follow-up outpatient CT scan of the chest for better characterization. 2. Postoperative changes of median sternotomy, bilateral breast implants, and left ureteral stent. The left ureteral stent has migrated distally. Recommend urology consultation. 3. Nonobstructing right nephrolithiasis. 4. No evidence of bowel obstruction, acute appendicitis, or other acute process in the abdomen or pelvis.
[2025-05-13 12:57] LABS: Urine Protein, UAD 1+ (Negative)
[2025-05-13 13:35] LABS: Hematocrit 41.0 % (36.0-46.0); Hemoglobin 13.3 g/dL (12.2-16.2); Mean Corpuscular Hemoglobin 28.6 pg (28.0-32.0); Mean Corpuscular Volume 88.2 fL (80.0-100.0); Nucleated Red Blood Cells % 0.1 %
[2025-05-13 13:44] LABS: Anion Gap 10 (5-15); Carbon Dioxide 24 mmol/L (20-31); Potassium 4.3 mmol/L (3.5-5.1); Sodium 141 mmol/L (136-145)
[2025-05-13 13:47] LABS: Chloride 107 mmol/L (98-107)
[2025-05-13 13:50] LABS: BUN/Creatinine Ratio 16.0 (10.0-20.0); Blood Urea Nitrogen 16 mg/dL (9-23); Glucose 99 mg/dL (74-106)
[2025-05-13 13:52] LABS: Calcium 9.5 mg/dL (8.7-10.4)
[2025-05-13] MEDS: SODIUM CHLORIDE 0.9% 1,000 ML IV ONE ×2 (14:00→20:40)
[2025-05-13] MEDS: cefTRIAXone SOD 1,000 MG VL ONE (14:19)
[2025-05-13] MEDS ORDERED: ACETAMINOPHEN 325 MG TAB PO PRN (16:00)
[2025-05-13 16:29] LABS: Alanine Aminotransferase 25 U/L (7-40); Albumin 4.4 g/dL (3.2-4.8); Alkaline Phosphatase 93 U/L (46-116); Bilirubin, Total 0.3 mg/dL (0.2-1.0); Total Protein 7.5 g/dL (5.7-8.2)
[2025-05-13 16:37] LABS: Bilirubin, Direct < 0.1 mg/dL (<0.3)
[2025-05-13] MEDS: ONDANSETRON HCL 4 MG/2 ML VIAL IV PRN (19:41)
[2025-05-13] MEDS: MORPHINE SULFATE INJ 2 MG/ml SYRG IV PRN (19:46)
[2025-05-13 20:17] VITALS: BP 120/72; PULSE 80; RESP 18; TEMP 97.9; O2SAT 94
--- NOTE | 2025-05-13 20:38 | DVHHPRES ---
History of Present Illness Resident Creating Document: KEVEN MÉNDEZ RESIDENT History of Present Illness Patient is a 39-year-old female with a history of ASD, VSD status post repair in 2018 with Cardiothoracic surgery, hypertension, kidney stone status post left ureteral stent placement presented to the hospital with a chief complaint of left flank pain which has been going on for the last 2-3 weeks. Patient reported about a month ago she was found to have a stone in the left kidney/ureter following which she underwent surgery with the urologist but the surgery could not be completed because oxygen saturation went down in the surgery and the procedure had to be aborted but they did end up putting a stent in left ureter. Since the surgery patient has been having left flank pain which eventually got worse following which she contacted her urologist and was advised to visit the ED for further evaluation. She has been reporting of constant pain, dysuria but denies any hematuria. Occasional nausea also reported. On arrival to the ED CT abdomen pelvis without contrast was done which showed left ureteral stent which has migrated distally Review of Systems Review of Systems Complains of [id number] left flank and suprapubic pain which is persistent and has been dependent episodes of sharp pain No nausea, vomiting, fever, chills Allergies: Coded Allergies: Penicillins (Verified Allergy, Unknown, 07/16/24) Sulfa Antibiotics (Verified Allergy, Unknown, 07/16/24) Medications Current Medications Medications Dose Ordered Sig/Kelly Route Start Time Stop Time Status Last Admin Dose Admin Ceftriaxone Sodium 50 ml @ 100 mls/hr DAILY@09 IV 05/14/25 09:00 Future hold Ondansetron HCl 4 mg Q6HPRN PRN IV 05/13/25 16:00 05/13/25 19:41 4 MG Morphine Sulfate 2 mg Q6HPRN PRN IV 05/13/25 16:00 05/13/25 19:46 2 MG Acetaminophen/ Hydrocodone Bitart 1 tab Q6HPRN PRN PO 05/13/25 16:00 Acetaminophen 650 mg Q6HP PRN PO 05/13/25 16:00 Exam Vital Signs Vital Signs Date Time Temp Pulse Resp B/P (MAP) Pulse Ox O2 Delivery O2 Flow Rate FiO2 05/13/25 19:46 82 15 148/82 05/13/25 18:15 98 05/13/25 15:31 97.9 97.9 Exam Skin - Patients skin is warm and dry. HEENT - normocephalic, atraumatic, moist mucous membranes, no pallor, no icterus Neck - full ROM, no LAD, no JVD Pulmonary - B/L equal breath sounds, no crackles, no wheezing, no stridor. cardiovascular - regular S1,S2 heard, no added sounds, no murmurs heard. GI - soft, nontender abdomen. no hepatospleenomegaly. Bowel sounds normoactive - left CVA tenderness Neurological - Patient is A/O X 4 . Bilateral upper extremity strength 5/5, bilateral lower extremity strength 5/5, no facial droop, normal speech, no tremor, no sensory deficiets. Labs/Xrays Labs Test 05/13/25 13:03 05/13/25 12:08 Range/Units White Blood Count 8.3 4.4-10.8 10^3/uL Red Blood Count 4.65 4.0-5.20 10^6/uL Hemoglobin 13.3 12.2-16.2 g/dL Hematocrit 41.0 36.0-46.0 % Mean Corpuscular Volume 88.2 80.0-100.0 fL Mean Corpuscular Hemoglobin 28.6 28.0-32.0 pg Mean Corpuscular Hemoglobin Concent 32.5 32.0-36.0 g/dL Red Cell Distribution Width 14.6 H 11.8-14.3 % Platelet Count 293 140-450 10^3/uL Mean Platelet Volume 8.5 6.9-10.8 fL Neutrophils (%) (Auto) 70.4 37.0-80.0 % Lymphocytes (%) (Auto) 21.2 10.0-50.0 % Monocytes (%) (Auto) 6.5 0.0-12.0 % Eosinophils (%) (Auto) 1.3 0.0-7.0 % Basophils (%) (Auto) 0.6 0.0-2.0 % Neutrophils # (Auto) 5.9 1.6-8.6 10 ^3/uL Lymphocytes # (Auto) 1.8 0.4-5.4 10 ^3/uL Monocytes # (Auto) 0.5 0-1.3 10 ^3/uL Eosinophils # (Auto) 0.1 0-0.8 10 ^3/uL Basophils # (Auto) 0 0-0.2 10 ^3/uL Nucleated Red Blood Cells 0.1 % Sodium Level 141 136-145 mmol/L Potassium Level 4.3 3.5-5.1 mmol/L Chloride Level 107 98-107 mmol/L Carbon Dioxide Level 24 20-31 mmol/L Anion Gap 10 5-15 Blood Urea Nitrogen 16 9-23 mg/dL Creatinine 1.00 0.550-1.02 mg/dL Glomerular Filtration Rate Calc 74 >90 mL/min BUN/Creatinine Ratio 16.0 10.0-20.0 Serum Glucose 99 74-106 mg/dL Calcium Level 9.5 8.7-10.4 mg/dL Total Bilirubin 0.3 0.2-1.0 mg/dL Direct Bilirubin < 0.1 <0.3 mg/dL Aspartate Amino Transferase (AST) 30 13-40 U/L Alanine Aminotransferase (ALT) 25 7-40 U/L Alkaline Phosphatase 93 46-116 U/L Total Protein 7.5 5.7-8.2 g/dL Albumin 4.4 3.2-4.8 g/dL Urine Color Yellow Yellow Urine Clarity Turbid H Clear Urine pH 5.5 5.0-9.0 Urine Specific [place] 1.024 1.001-1.035 Urine Protein 1+ H Negative Urine Ketones Negative Negative Urine Blood 3+ H Negative /uL Urine Nitrite Negative Negative Urine Bilirubin Negative Negative Urine Urobilinogen Normal Negative mg/dL Urine Leukocyte Esterase 2+ Negative /uL Urine RBC 450 0 - 4 /hpf Urine Microscopic WBC 35 H 0-5 /HPF Urine Squamous Epithelial Cells Mod <5 /hpf Urine Bacteria Few H None Seen /hpf Urine Mucus Few None Seen Urine Glucose Normal Normal mg/dL SEPSIS Sepsis Screen Date sepsis recognized/suspect: May 13, 2025 Time Sepsis recognized/suspect: 1127 Recent Procedure: No On Antibiotic Therapy: No Respiratory Rate >20: No Heart Rate >90: No Temp<36 C (96.8 F) or >38.3 C: No SBP <90 or MAP <65 mmHG: No New Acute Mental Status Change: No Is the patient on CPAP, BIPAP,: No Physician Orders Urine Bacterial Culture (05/13/25 13:10) Admit (05/13/25 16:00) Oxygen By Nasal Cannula (05/13/25 16:00) Stat Ekg For Chest Pain (05/13/25 16:00) Notify Md Of Changes From Base (05/13/25 16:00) Ceftriaxone 1gm/50ml (Rocephin) (05/14/25 09:00) Complete Blood Count (05/14/25 04:00) Basic Metabolic Panel (05/14/25 04:00) Blood Culture (05/13/25 16:00) Ondansetron Hcl (Zofran) (05/13/25 16:00) Morphine Sulfate Injection (05/13/25 16:00) Hydrocodone-Acet 5/325mg Tab ([place] 5/32 (05/13/25 16:00) Acetaminophen Tablet (Tylenol Tablet) (05/13/25 16:00) * Urology Consult (05/13/25 16:00) Cardiac Diet-2gna,Lofat,Lochol (05/14/25 Breakfast) Vital Signs Date Time Temp Pulse Resp B/P (MAP) Pulse Ox O2 Delivery O2 Flow Rate FiO2 05/13/25 19:46 82 15 148/82 05/13/25 18:15 84 18 126/76 (93) 98 05/13/25 15:31 97.9 84 18 129/76 (93) 98 97.9 05/13/25 13:20 92 18 129/76 (93) 98 Laboratory Tests Test 05/13/25 13:03 White Blood Count 8.3 10^3/uL (4.4-10.8) Medications Medications Dose Ordered Sig/Kelly Route Start Time Stop Time Status Last Admin Dose Admin Ceftriaxone Sodium 50 ml @ 100 mls/hr ONCE ONCE IV 05/13/25 13:15 05/13/25 13:44 DC 05/13/25 14:35 100 MLS/HR Morphine Sulfate 2 mg Q6HPRN PRN IV 05/13/25 16:00 05/13/25 19:46 2 MG Ondansetron HCl 4 mg Q6HPRN PRN IV 05/13/25 16:00 05/13/25 19:41 4 MG Sodium Chloride 1,000 ml @ 1,000 mls/hr Q1H ONCE IV 05/13/25 13:15 05/13/25 14:14 DC 05/13/25 14:00 1,000 MLS/HR Assessment/Plan Assessment/Plan Complicated UTI with indwelling ureteral stent ?Dislodged ureteral stent Nonobstructing right nephrolithiasis - urine and blood culture pending - IV fluids - strict I&Os - IV antibiotics - urology consulted h/o ASD and VSD status post repair in 2018 at [facility] Hypertensive heart disease - at home on amlodipine 5 mg daily, currently held because blood pressure has been stable - if the patient is planned for surgery, will need cardiac clearance since during last procedure her oxygen sats dropped in surgery PUD prophylaxis: Protonix Goals of care discussed with the patient for over 18 minutes. Full code Time spent: 38 minutes Plan discussed with Dr. Joshua Plan discussed with: Patient, Other (RN) My Orders Orders - KEVEN MÉNDEZ Procedure Category Date Status Time Admit ADMIT 05/13/25 Transmitted 16:00 Oxygen By Nasal RT 05/13/25 Transmitted Cannula 16:00 Stat Ekg For Chest NISHA 05/13/25 In Process Pain 16:00 Notify Of Changes NISHA 05/13/25 In Process From Base 16:00 Ceftriaxone 1gm/50ml PHA 05/14/25 In Process (Rocephin) 09:00 Complete Blood Count LAB 05/14/25 Verified 04:00 Basic Metabolic Panel LAB 05/14/25 Verified 04:00 Blood Culture BELINDA 05/13/25 In Process 16:00 Ondansetron Hcl PHA 05/13/25 In Process (Zofran) 16:00 Morphine Sulfate PHA 05/13/25 In Process Injection 16:00 Hydrocodone-Acet PHA 05/13/25 In Process 5/325mg Tab ([place] 16:00 Acetaminophen Tablet PHA 05/13/25 In Process (Tylenol Tablet) 16:00 * Urology Consult CONS 05/13/25 Transmitted 16:00 Cardiac DIET 05/14/25 Transmitted Diet-2gna,Lofat,Lochol Breakfast Date of Service: May 13, 2025 Billing Provider: DEEPAK JOSHUA MD Common Visit Codes: 25547-[id number] INP/OBS CARE (HIGH) Secondary Visit Codes: 40421-[id number] CARE PLAN 30 MINUTES KEVEN MÉNDEZ May 13, 2025 20:38
[2025-05-13 20:41] VITALS: BP 120/72; PULSE 80; RESP 18; TEMP 98.2; O2SAT 94
[2025-05-14 01:00] VITALS: BP 97/65; PULSE 91; RESP 18; TEMP 97.3; O2SAT 95
[2025-05-14] MEDS: HYDROcodone-ACET 5/325MG TAB PO PRN (03:21)
[2025-05-14 05:00] VITALS: BP 98/60; PULSE 100; RESP 18; TEMP 97.2; O2SAT 95
[2025-05-14] MEDS: PANTOPRAZOLE 40 MG TAB PO SCH (06:09)
[2025-05-14 06:28] LABS: Hematocrit 36.4 % (36.0-46.0); Hemoglobin 12.0 g/dL (12.2-16.2); Mean Corpuscular Hemoglobin 28.5 pg (28.0-32.0); Mean Corpuscular Volume 86.6 fL (80.0-100.0); Nucleated Red Blood Cells % 0.0 %
[2025-05-14 06:36] LABS: Potassium 4.2 mmol/L (3.5-5.1); Sodium 142 mmol/L (136-145)
[2025-05-14 06:37] LABS: Anion Gap 9 (5-15); Carbon Dioxide 24 mmol/L (20-31)
[2025-05-14 06:40] LABS: Calcium 8.7 mg/dL (8.7-10.4); Chloride 109 mmol/L (98-107)
[2025-05-14 06:42] LABS: BUN/Creatinine Ratio 15.2 (10.0-20.0); Blood Urea Nitrogen 14 mg/dL (9-23); Glucose 87 mg/dL (74-106)
[2025-05-14 09:00] VITALS: BP 99/59; PULSE 88; RESP 18; TEMP 98.1; O2SAT 95
--- NOTE | 2025-05-14 11:13 | DVHINCON2 ---
Date Seen: May 14, 2025 Referring Physician MD Agnes resident Reason for Consultation Cardiac risk stratification History of Present Illness This is a 39-year-old female patient who presents to emergency room with chief complaint of left flank pain and bladder fullness. Patient reports recently undergoing a renal stent placement on 04/14/2025. She states that she was also scheduled to undergo lithotripsy but became hypoxic during the procedure which then had to be aborted. Cardiology has been consulted at this time for cardiac risk stratification for upcoming urological procedure. Initial twelve lead electrocardiogram reveals normal sinus rhythm with nonspecific T wave inversion to anterior leads. The patient denies any cardiac symptoms such as chest pain, palpitations, shortness of breath, or dizziness. 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 The patient reports that she follows up with a ice scraper at [facility] in the outpatient setting. Past Medical History Past medical history reviewed. No other significant than mentioned above. Past Surgical History Breast augmentation Open heart surgery for congenital heart defects in 2018 Family History: FH: myocardial infarction grandfather Family History Family history reviewed. Social History Denies the use of tobacco, alcohol or illicit drugs. Allergies: Coded Allergies: Penicillins (Verified Allergy, Unknown, 07/16/24) Sulfa Antibiotics (Verified Allergy, Unknown, 07/16/24) Home Meds Reported Medications Amlodipine Besylate (Amlodipine Besylate) 2.5 Mg Tab, PO DAILY, TAB 05/08/25 Home Meds Home medications reviewed. Current Medications Current Medications Medications (Trade) Dose Ordered Sig/Kelly Route PRN Reason Start Time Stop Time Status Last Admin Ceftriaxone Sodium 50 ml @ 100 mls/hr DAILY@09 IV 05/14/25 09:00 05/14/25 09:00 Ondansetron HCl (Zofran) 4 mg Q6HPRN PRN IV NAUSEA / VOMITING 05/13/25 16:00 05/13/25 19:41 Morphine Sulfate 2 mg Q6HPRN PRN IV SEVERE PAIN (7-10 PAIN SCALE) 05/13/25 16:00 05/13/25 19:46 Acetaminophen/ Hydrocodone Bitart ([place] 5/325MG Tab) 1 tab Q6HPRN PRN PO MODERATE PAIN (4-6 PAIN SCALE) 05/13/25 16:00 05/14/25 10:34 Acetaminophen (Tylenol Tablet) 650 mg Q6HP PRN PO PAIN SCALE 1-3 OR TEMP>100.4 05/13/25 16:00 Pantoprazole Sodium (Protonix Tablet) 40 mg DAILY@0600 PO 05/14/25 06:00 05/14/25 06:09 Review of Systems Constitutional: No symptom reported Ears, Nose, & Throat: No symptom reported Eyes: No symptom reported Neurological: No symptoms reported Pulmonary/Respiratory: No symptoms reported Cardiovascular: No symptom reported Gastrointestinal: No symptom reported Genitourinary: Left flank pain Musculoskeletal: No symptom reported Skin: No symptom reported Psychiatric: No symptom reported Endocrine: No symptom reported Hematologic/Lymphatic: No symptom reported Vital Signs Vital Signs Date Time Temp Pulse Resp B/P (MAP) Pulse Ox O2 Delivery O2 Flow Rate FiO2 05/14/25 09:00 98.1 88 18 99/59 (72) 95 98.1 05/13/25 20:41 Room Air* 0 21 Physical Exam General Appearance: Cooperative. Obese Pulmonary/Respiratory: Clear, bilateral breaths sounds. Cardiovascular/Chest: Regular rate and rhythm. Peripheral Pulses: 2+ Radial (R). 2+ Radial (L). 2+ Pedal (R). 2+ Pedal (L) Abdominal Exam: Normal bowel sounds. Ankle Exam: Negative ankle edema Lower extremities: Negative lower extremity edema Neuro/Mental Status: A/OX4, coherent. Thoughts/Psych: Normal thought pattern. Appropriate mood and affect. Good judgment and insight. Appearance: No acute distress. Skin Exam: Normal inspection. Normal color. Warm and dry. Labs/Diagnostic Data Labs Test 05/14/25 05:17 05/13/25 13:03 05/13/25 12:08 Range/Units White Blood Count 5.7 # 4.4-10.8 10^3/uL Red Blood Count 4.20 4.0-5.20 10^6/uL Hemoglobin 12.0 L 12.2-16.2 g/dL Hematocrit 36.4 # 36.0-46.0 % Mean Corpuscular Volume 86.6 80.0-100.0 fL Mean Corpuscular Hemoglobin 28.5 28.0-32.0 pg Mean Corpuscular Hemoglobin Concent 33.0 32.0-36.0 g/dL Red Cell Distribution Width 14.4 H 11.8-14.3 % Platelet Count 262 140-450 10^3/uL Mean Platelet Volume 8.7 6.9-10.8 fL Neutrophils (%) (Auto) 60.5 37.0-80.0 % Lymphocytes (%) (Auto) 27.4 10.0-50.0 % Monocytes (%) (Auto) 9.0 0.0-12.0 % Eosinophils (%) (Auto) 2.1 0.0-7.0 % Basophils (%) (Auto) 1.0 0.0-2.0 % Neutrophils # (Auto) 3.5 1.6-8.6 10 ^3/uL Lymphocytes # (Auto) 1.6 0.4-5.4 10 ^3/uL Monocytes # (Auto) 0.5 0-1.3 10 ^3/uL Eosinophils # (Auto) 0.1 0-0.8 10 ^3/uL Basophils # (Auto) 0.1 0-0.2 10 ^3/uL Nucleated Red Blood Cells 0.0 % Sodium Level 142 136-145 mmol/L Potassium Level 4.2 3.5-5.1 mmol/L Chloride Level 109 H 98-107 mmol/L Carbon Dioxide Level 24 20-31 mmol/L Anion Gap 9 5-15 Blood Urea Nitrogen 14 9-23 mg/dL Creatinine 0.92 0.550-1.02 mg/dL Glomerular Filtration Rate Calc 82 >90 mL/min BUN/Creatinine Ratio 15.2 10.0-20.0 Serum Glucose 87 74-106 mg/dL Calcium Level 8.7 8.7-10.4 mg/dL Total Bilirubin 0.3 0.2-1.0 mg/dL Direct Bilirubin < 0.1 <0.3 mg/dL Aspartate Amino Transferase (AST) 30 13-40 U/L Alanine Aminotransferase (ALT) 25 7-40 U/L Alkaline Phosphatase 93 46-116 U/L Total Protein 7.5 5.7-8.2 g/dL Albumin 4.4 3.2-4.8 g/dL Urine Color Yellow Yellow Urine Clarity Turbid H Clear Urine pH 5.5 5.0-9.0 Urine Specific [place] 1.024 1.001-1.035 Urine Protein 1+ H Negative Urine Ketones Negative Negative Urine Blood 3+ H Negative /uL Urine Nitrite Negative Negative Urine Bilirubin Negative Negative Urine Urobilinogen Normal Negative mg/dL Urine Leukocyte Esterase 2+ Negative /uL Urine RBC 450 0 - 4 /hpf Urine Microscopic WBC 35 H 0-5 /HPF Urine Squamous Epithelial Cells Mod <5 /hpf Urine Bacteria Few H None Seen /hpf Urine Mucus Few None Seen Urine Glucose Normal Normal mg/dL Assessment Preprocedural cardiovascular examination S/p open heart surgery for ASD and VSD repairs in 2018 Hypertension Renal stent placement on 04/14/2025 Lingular 11 mm noncalcified pulmonary nodule Morbid obesity Plan/Recommendation We will continue with the following plan/recommendations (Dr. Parrish): Transthoracic echocardiogram reveals an EF of 55-60%. Revised Cardiac Risk Index (Onesimo criteria): 0 points (0.5% risk of major cardiac event). Cardiac symptoms harris ve been ruled out. There is no underlying history of congestive heart failure, coronary artery disease, or equivalent of cardiac symptoms. Prior to admission, the patient reports a good functional capacity. Per cardiology standpoint, patient is at an acceptable-risk for moderate-risk surgery. There is no additional cardiac work-up indicated prior to surgery. Thank you for allowing us to participate in this patient's care. Please call if you have any questions or concerns. Critical care time spent: 44 minutes This medical document was created using an electronic medical record system with voice recognition software and computerized dictation system. Although this document has been carefully reviewed, there might still be some phonetic and typographical errors. Occasional wrong-word or ``sound-alike substitutions may have occurred due to the inherent limitations of voice recognition software. These areas are purely typographical due to imperfections of the software programs and do not reflect any compromise in the patient's medical care. Please read the chart carefully and recognize, using context, where these substitutions have occurred. Plan discussed with: Patient NYHA Physical activity limitations: NA Date of Service: May 14, 2025 Billing Provider: JOSE LEOS Cardiology Common Codes: 10262-NLVWLEY INP/OBS CARE (High) Cardiology Consultation Codes: 71312-[id number] CONSULT <45MIN JOSE LEOS May 14, 2025 11:13
[2025-05-14 12:48] VITALS: BP 90/56; PULSE 93; RESP 18; TEMP 98.3; O2SAT 93
[2025-05-14 13:06] LABS: Magnesium 1.9 mg/dL (1.6-2.6); Triglycerides 90.0 mg/dL (< 150)
[2025-05-14 13:07] LABS: Cholesterol 154.0 mg/dL (< 200); HDL Cholesterol 45.0 mg/dL (40-59)
--- NOTE | 2025-05-14 13:24 | DVH ---
CHEST RADIOGRAPH Indication: h/o congenital ASD and VSD s/p repair Technique: Single frontal view of the chest was obtained Comparison: None FINDINGS: Lines and Tubes: None Lungs: No focal consolidation. Pleura: No effusion. No pneumothorax. Cardiomediastinal contours: Unremarkable Bones: No acute osseous abnormality. IMPRESSION: No acute cardiopulmonary disease.
--- NOTE | 2025-05-14 14:18 | DVH ---
CHEST RADIOGRAPH Indication: h/o congenital ASD and VSD s/p repair Technique: Single frontal view of the chest was obtained Comparison: None FINDINGS: Lines and Tubes: None Lungs: No focal consolidation. Pleura: No effusion. No pneumothorax. Cardiomediastinal contours: Unremarkable Bones: No acute osseous abnormality. IMPRESSION: No acute cardiopulmonary disease. ELLE CORLEY
[2025-05-14 16:35] VITALS: BP 112/68; PULSE 93; RESP 18; TEMP 98.1; O2SAT 97
--- NOTE | 2025-05-14 17:41 | DVHNC2 ---
Procedure - 39 yo female Melanie Reddy 05/14/25 Bedside Flexible Cystoscopy Indication: Distal migration and kinking of the left ureteral stent with flank pain and hematuria following recent ESWL and stent placement Pre Procedure Dx: migrated left ureteral stent s/p left ESWL Hematuria and flank pain non obstructing right renal stone Post Procedure Dx: Same as above Local Anesthesia Findings Distally migrated left ureteral stent noted Bladder without gross abnormalities Stent removed intact, no immediate complications. Procedure Description The patient was positioned in the dorsal lithotomy position and prepped in the standard sterile fashion. A flexible disposable cystoscope was introduced into the bladder under direct visualization. The distal coil of the left ureteral stent was identified and using grasping forceps, the stent was removed smoothly and completely without any resistance. The stent was inspected and confirmed to be intact. No bleeding or complications observed. Estimated Blood Loss - 0 ml Complications None Disposition: home Plan F/u urology monday for surgery scheduling for residual stone increase fluids CPT 90357 NISHANT CELESTE NP May 14, 2025 17:41
--- NOTE | 2025-05-14 18:20 | DVHSR ---
APPROVED REPORT EXAM: Two-dimensional and M-mode echocardiogram with Doppler and color Doppler. Blood Pressure: 98/60 mmHg INDICATION H/O congenital ASD and VSD S/P repair RISK FACTORS Height: 61, Weight: 263 DIMENSIONS LVDd 4.0 (3.8-5.7cm) LA (2D) 4.0 (1.9-4.0cm) Aortic Root 3.5 (2.0-3.7cm) LVDs 2.8 (2.5-4.0cm) LA (MM) (1.9-4.0cm) Aortic Cusp Exc 2.0 (1.5-2.0cm) EF (%) 56.0 (55-70%) Rt. Atrium 4.3 (1.9-4.0cm) Asc. Aorta cm Mitral Valve Mitral Mitral Stenosis E wave 0.95m/s MV Mean GR. mmHg A wave 1.21m/s MV Peak GR. 121mmHg E/A ratio 0.8 2D MVA cm2 DECEL Time 217ms PRESS 1/2 Time 47ms IVRT ms Dop MVA 4.70cm2 Aortic Valve Aortic Valve Aortic Stenosis V1 m/s AO Mean GR. 9mmHg V2 2.00m/s AO Peak GR. 16mmHg LVOT Diameter 2.1 (1.8-2.4cm) Doppler SUNNY cm2 Pulmonic Valve V2 0.95m/s Tricuspid Valve TR Velocity 2.45m/s RVSP 28mmHg Conclusion Sinus rhythm. Biatrial enlargement. Concentric LVH. Aortic root enlargement. Thickening of the mitral leaflets with adequate excursion. The aortic valve is structurally normal. The tricuspid and pulmonic normal. Left ventricular performance is preserved. EF is 55-60%. Right ventricular function is preserved. There is slight doming of the interventricular septum suggesting a pressure overload however RV pressures are only28 mmHg. [id number] tricuspid and mitral insufficiency. RV pressures are not consistent with severe pulmonary hypertension. No pericardial effusion masses or vegetations.
[2025-05-14] MEDS ORDERED: SODIUM CHLORIDE 0.9% 1,000 ML IV SCH (19:15)
--- NOTE | 2025-05-14 19:15 | DVHPNRES ---
Progress Note Date Seen: May 14, 2025 Resident Creating Document: MELODY NGUYEN RESIDENT Medical Necessity Reason Pt with a Central, PICC or Fol: No Subjective Review of Systems Melanie Reddy is a 39-year-old female with past medical history of ASD, VSD status post repair in 2018, hypertension, nephrolithiasis s/p left ureteral stent placement on March 25, 2025 who presented to the ED with a chief complaint of left flank pain, since she got the left ureteral stent placed. Patient stated that she was incidentally found to have an obstructing left-sided kidney stone, for which she underwent ureteral stent placement. Per the patient,during the procedure, her oxygen saturation dropped and the procedure could not be completed, but stent was placed. Ever since the procedure, she has continued to have dysuria and suprapubic and left flank pain, which got worse 2 days back, and she was recommended to come to the ED for further evaluation. CT abdomen/pelvis without contrast showed left ureteral stent had migrated distally. Urinalysis was positive for UTI. Patient underwent ureteral stent removal on 05/14/2025 after cardiac clearance without any perioperative complications. Past medical history: ASD, VSD s/p repair in 2018, hypertension, kidney stones Past surgical history: Large ASD and small VSD repair in 2018, left ureteral stent placement on 03/25/2025 Home medications: Amlodipine 0.5 mg p.o. daily Social & Personal history: Lives at home with family, denies smoking, alcohol or drug Allergies: Penicillins, sulfa antibiotics Patient seen and examined at bedside. Patient is alert and oriented to time, place person and responding to all questions. Eyes: No Pain, No Vision change, No Conjunctivae inflammation, No Eyelid inflammation, No Redness ENT: No Ear pain, No Ear discharge, No Nose pain, No Nose discharge, No Nose congestion, No Mouth pain, No Mouth swelling, No Throat pain, No Throat swelling Cardiovascular: No Chest Pain, No Palpitations, No Orthopnea, No Paroxysmal No Dyspnea, No Edema, No Lt Headedness Respiratory: No Cough, No Dry, No Shortness of breath, No SOB with exertion, No Wheezing, No Hemoptysis, No Pleuritic Pain, No Sputum Gastrointestinal: No Nausea, No Vomiting, Abdominal Pain, No Diarrhea, No Constipation, No Melena, No Hematochezia Genitourinary: Dysuria, No Frequency, No Incontinence, No Hematuria, No Retention Objective vital signs Vital Sign Date Time Temp Pulse Resp B/P (MAP) Pulse Ox O2 Delivery O2 Flow Rate FiO2 05/14/25 16:35 98.1 93 18 112/68 (83) 97 98.1 05/13/25 20:41 Room Air* 0 21 Total Intake and Output 05/13/25 05/13/25 05/14/25 15:00 23:00 07:00 Intake Total 105 ml Output Total 100 ml Balance 5 ml medications Current Medications Medications Dose Ordered Sig/Kelly Route Start Time Stop Time Status Last Admin Dose Admin Ceftriaxone Sodium 50 ml @ 100 mls/hr DAILY@09 IV 05/14/25 09:00 05/14/25 09:00 100 MLS/HR Ondansetron HCl 4 mg Q6HPRN PRN IV 05/13/25 16:00 05/13/25 19:41 4 MG Morphine Sulfate 2 mg Q6HPRN PRN IV 05/13/25 16:00 05/13/25 19:46 2 MG Acetaminophen/ Hydrocodone Bitart 1 tab Q6HPRN PRN PO 05/13/25 16:00 05/14/25 10:34 1 TAB Acetaminophen 650 mg Q6HP PRN PO 05/13/25 16:00 Pantoprazole Sodium 40 mg DAILY@0600 PO 05/14/25 06:00 05/14/25 06:09 40 MG Examination General Appearance: Cooperative. Well developed. Well nourished. NAD Head Exam: Normal inspection Neck Exam: Normal inspection. Non-tender. Normal alignment Pulmonary/Respiratory: Chest non-tender. Clear bilateral breath sounds, no crackles, no wheezing. Cardiovascular/Chest: Regular rate and rhythm. No murmurs. No JVD. Peripheral Pulses: 2+ Radial (R). 2+ Radial (L). 2+ Pedal (R). 2+ Pedal (L) Abdominal Exam: Normal bowel sounds. Soft. obese abdomen, no visible veins, t enderness in suprapubic area, left CVA tenderness. No hepatospenomegaly. No masses Ankle Exam: Negative ankle edema Lower extremities: Negative lower extremity edema Neuro/Mental Status: A&O x4. Coherent. Thoughts/Psych: Normal thought pattern. Appropriate mood and affect. Good judgement and insight Skin Exam: Normal inspection. Normal color. Warm. Dry laboratory and microbiology Laboratory Tests 05/14/25 05:17 Test 05/14/25 05:17 Range/Units Serum Glucose 87 74-106 mg/dL Microbiology Date/Time Source Procedure Growth Status 05/13/25 17:00 Blood Blood Culture - Preliminary NO GROWTH AFTER 24 HOURS OF INCUBATION. Resulted 05/13/25 12:08 Voided Urine Urine Culture - Preliminary Resulted Labs and/or images reviewed: Labs reviewed by me, Image(s) reviewed by me Problem List/Assessment/Plan Problem List/Assessment/Plan # Complicated UTI with indwelling ureteral stent s/p stent removal # Dislodged ureteral stent # Nonobstructing right nephrolithiasis - urine culture preliminary- mixed denita - blood culture- no growth after 24 hour - IV fluids NS at 100 mL/hour - strict I&Os - IV ceftriaxone 1 g daily - pain management with [place] 5 q.6 p.r.n. and morphine 2 mg Q 6 p.r.n. - urology on board- left ureteral stent removed on 05/14/2025, follow-up on Monday for surgery scheduling for residual stone # h/o ASD and VSD status post repair in [address] [facility] # Hypertensive heart disease - at home on amlodipine 2.5 mg daily, currently held because blood pressure has been stable PUD prophylaxis: Protonix 40 mg daily p.o. Goals of care discussed with the patient for>23 minutes ,Full code Plan discussed with Dr. Joshua Plan discussed with: Patient My Orders My Orders Orders - MELODY NGUYEN RESIDENT Procedure Category Date Status Time * Cardiology Consult CONS 05/14/25 Transmitted 08:28 Date of Service: May 14, 2025 Billing Provider: DEEPAK JOSHUA MD Common Visit Codes: [id number] INP/OBS CARE(HIGH) MELODY NGUYEN RESIDENT May 14, 2025 19:15 DEEPAK JOSHUA MD May 14, 2025 23:57
--- NOTE | 2025-05-15 17:34 | DVHDSRES ---
Discharge Summary Date of Admission Resident Creating Document: MELODY NGUYEN RESIDENT May 13, 2025 at 16:00 Date of Discharge: May 14, 2025 Admitting Diagnosis Complicated UTI Labs/Diagnostic Data: Laboratory Results Test 05/14/25 05:17 05/13/25 13:03 05/13/25 12:08 White Blood Count 5.7 10^3/uL (4.4-10.8) Red Blood Count 4.20 10^6/uL (4.0-5.20) Hemoglobin 12.0 g/dL (12.2-16.2) Hematocrit 36.4 % (36.0-46.0) Mean Corpuscular Volume 86.6 fL (80.0-100.0) Mean Corpuscular Hemoglobin 28.5 pg (28.0-32.0) Mean Corpuscular Hemoglobin Concent 33.0 g/dL (32.0-36.0) Red Cell Distribution Width 14.4 % (11.8-14.3) Platelet Count 262 10^3/uL (140-450) Mean Platelet Volume 8.7 fL (6.9-10.8) Neutrophils (%) (Auto) 60.5 % (37.0-80.0) Lymphocytes (%) (Auto) 27.4 % (10.0-50.0) Monocytes (%) (Auto) 9.0 % (0.0-12.0) Eosinophils (%) (Auto) 2.1 % (0.0-7.0) Basophils (%) (Auto) 1.0 % (0.0-2.0) Neutrophils # (Auto) 3.5 10 ^3/uL (1.6-8.6) Lymphocytes # (Auto) 1.6 10 ^3/uL (0.4-5.4) Monocytes # (Auto) 0.5 10 ^3/uL (0-1.3) Eosinophils # (Auto) 0.1 10 ^3/uL (0-0.8) Basophils # (Auto) 0.1 10 ^3/uL (0-0.2) Nucleated Red Blood Cells 0.0 % Sodium Level 142 mmol/L (136-145) Potassium Level 4.2 mmol/L (3.5-5.1) Chloride Level 109 mmol/L (98-107) Carbon Dioxide Level 24 mmol/L (20-31) Anion Gap 9 (5-15) Blood Urea Nitrogen 14 mg/dL (9-23) Creatinine 0.92 mg/dL (0.550-1.02) Glomerular Filtration Rate Calc 82 mL/min (>90) BUN/Creatinine Ratio 15.2 (10.0-20.0) Serum Glucose 87 mg/dL (74-106) Calcium Level 8.7 mg/dL (8.7-10.4) Magnesium Level 1.9 mg/dL (1.6-2.6) Triglycerides Level 90 mg/dL (< 150) Cholesterol Level 154 mg/dL (< 200) LDL Cholesterol 97 mg/dL (< 100) HDL Cholesterol 45 mg/dL (40-59) Thyroid Stimulating Hormone (TSH) 1.86 uIU/mL (0.55-4.78) Beta HCG, Quantitative 0.6 mIU/mL (1.5-4.2) Total Bilirubin 0.3 mg/dL (0.2-1.0) Direct Bilirubin < 0.1 mg/dL (<0.3) Aspartate Amino Transferase (AST) 30 U/L (13-40) Alanine Aminotransferase (ALT) 25 U/L (7-40) Alkaline Phosphatase 93 U/L (46-116) Total Protein 7.5 g/dL (5.7-8.2) Albumin 4.4 g/dL (3.2-4.8) Urine Color Yellow (Yellow) Urine Clarity Turbid (Clear) Urine pH 5.5 (5.0-9.0) Urine Specific [place] 1.024 (1.001-1.035) Urine Protein 1+ (Negative) Urine Ketones Negative (Negative) Urine Blood 3+ /uL (Negative) Urine Nitrite Negative (Negative) Urine Bilirubin Negative (Negative) Urine Urobilinogen Normal mg/dL (Negative) Urine Leukocyte Esterase 2+ /uL (Negative) Urine RBC 450 /hpf (0 - 4) Urine Microscopic WBC 35 /HPF (0-5) Urine Squamous Epithelial Cells Mod /hpf (<5) Urine Bacteria Few /hpf (None Seen) Urine Mucus Few (None Seen) Urine Glucose Normal mg/dL (Normal) Other Laboratory Tests 05/14/25 05:17 Brief Hx & Hospital Course: Melanie Reddy is a 39-year-old female with past medical history of ASD, VSD status post repair in 2018, hypertension, nephrolithiasis s/p left ureteral stent placement on March 25, 2025 who presented to the ED with a chief complaint of left flank pain, since she got the left ureteral stent placed. Patient stated that she was incidentally found to have an obstructing left-sided kidney stone, for which she underwent ureteral stent placement. Per the patient,during the procedure, her oxygen saturation dropped and the procedure could not be completed, but stent was placed. Ever since the procedure, she has continued to have dysuria and suprapubic and left flank pain, which got worse 2 days back, and she was recommended to come to the ED for further evaluation. CT abdomen/pelvis without contrast showed left ureteral stent had migrated distally. Urinalysis was positive for UTI. Patient underwent ureteral stent removal on 05/14/2025 after cardiac clearance without any perioperative complications. The patient was recommended IV antibiotics, their risk and benefits were explained to the patient. But the patient left AMA. Past medical history: ASD, VSD s/p repair in 2018, hypertension, kidney stones Past surgical history: Large ASD and small VSD repair in 2018, left ureteral stent placement on 03/25/2025 Home medications: Amlodipine 0.5 mg p.o. daily Social & Personal history: Lives at home with family, denies smoking, alcohol or drug Allergies: Penicillins, sulfa antibiotics Physical exam could not be completed as the patient left AMA last evening. Operations or Procedures 1.PROCEDURE(s): ABPL - CT AB PEL WO CON-NO ORAL OR IV REASON: ureterstent ORDER NUMBER(s): [id number], ACCESSION NUMBER(s): [id number] EXAM: CT CT AB PEL WO CON-NO ORAL OR IV HISTORY: ureterstent COMPARISON: None TECHNIQUE: Helical CT images of the abdomen and pelvis were performed without IV contrast. Sagittal and coronal reformatted images were obtained. This CT exam was performed using one or more of the following dose reduction techniques: Automated exposure control, adjustment of the mA and/or kv according to patient size, or the use of iterative reconstruction techniques. Radiation Dose: Abdomen/Pelvis: CTDIvol 26.04 mGy, DLP 1411.3 mGy*cm. FINDINGS: CT abdomen: There are postoperative changes of median sternotomy and bilateral breast implants, not fully imaged here. There are multiple old right lower rib fractures. There is an 11 mm lingular noncalcified pulmonary nodule (image 8, series 2). There is mild elevation of the right hemidiaphragm. The heart is not enlarged. The noncontrast liver, spleen, gallbladder, pancreas, left kidney, and bilateral adrenal glands are unremarkable. There are multiple subcentimeter nonobstructing right renal calculi. There is a left upper quadrant splenule. No abdominal aortic aneurysm. CT pelvis: No abnormal bowel dilatation, free air, or free fluid. There is a left ureteral stent with the proximal pigtail in the distal ureter and of the majority of the stent in the urinary bladder lumen. The appendix is not dilated. IMPRESSION: 1. Lingular 11 mm noncalcified pulmonary nodule. Recommend follow-up outpatient CT scan of the chest for better characterization. 2. Postoperative changes of median sternotomy, bilateral breast implants, and left ureteral stent. The left ureteral stent has migrated distally. Recommend urology consultation. 3. Nonobstructing right nephrolithiasis. 4. No evidence of bowel obstruction, acute appendicitis, or other acute process in the abdomen or pelvis. 2.Procedure - 39 yo female Melanie Reddy 05/14/25 Bedside Flexible Cystoscopy Indication: Distal migration and kinking of the left ureteral stent with flank pain and hematuria following recent ESWL and stent placement Pre Procedure Dx: migrated left ureteral stent s/p left ESWL Hematuria and flank pain non obstructing right renal stone Post Procedure Dx: Same as above Local Anesthesia Findings Distally migrated left ureteral stent noted Bladder without gross abnormalities Stent removed intact, no immediate complications. Procedure Description The patient was positioned in the dorsal lithotomy position and prepped in the standard sterile fashion. A flexible disposable cystoscope was introduced into the bladder under direct visualization. The distal coil of the left ureteral stent was identified and using grasping forceps, the stent was removed smoothly and completely without any resistance. The stent was inspected and confirmed to be intact. No bleeding or complications observed. Estimated Blood Loss - 0 ml Complications None Disposition: home Plan F/u urology monday for surgery scheduling for residual stone increase fluids Condition at Discharge: Undetermined Final Diagnosis/Problems List Complicated UTI with indwelling ureteral stent s/p stent removal Dislodged ureteral stent Nonobstructing right nephrolithiasis h/o ASD and VSD status post repair in 2018 at [facility] Hypertensive heart disease Discharge Disposition: AMA Discharge Instruct/Medications Scheduled Amlodipine Besylate (Amlodipine Besylate), Unknown Dose PO DAILY, (Reported) Discharge Statement: "Patient was advised to return to the ER or call 911 if any headaches, dizziness, shortness of breath, chest pain, abdominal pain, bleeding, fevers, or worsening of medical condition. Patient was counseled about treatment plan, medications, possible side effects, patientverbalized understanding. All questions were answered to the best of my ability. This discharge took greater then 30 minutes in planning, reviewing documentation, counseling the patient, and discussing with other team members." ASSESSMENT ASSESSMENT Assessment Date of Service: May 14, 2025 Billing Provider: DEEPAK GARLAND MD Common Visit Codes: 26704-RAH/OBS DISCH DAY >30min MELODY NGUYEN RESIDENT May 15, 2025 17:34 DEEPAK GARLAND MD May 16, 2025 20:16
--- NOTE | 2025-05-20 07:47 | ECG ---
[facility] Test Date: 2025-05-19 Test Time: 22:42:20 Pat Name: AMEYA BARRON Department: Room: [address] [place] [address] Gender: F Transmitter Chief: KYM : 1985 Requested By: JOSE LEOS Order Number: [id number] Reading MD: Lito Parrish Measurements Intervals [place] Rate: 81 P: 27 TN: 170 QRS: -10 QRSD: 91 T: 44 QT: 387 QTc: 450 Interpretive Statements Sinus rhythm Probable left atrial enlargement Inferior infarct, old Abnormal T, consider ischemia, anterior leads Electronically Signed On 05-20-2025 9:53:38 PST by Lito Parrish Please click the below link to view image of tracing.
== END 2025-05-14 18:25 | disposition left against medical advice (07) | DRG 699 ==
LOC: ER 11:21 → OVERFLOW 16:00 → EAST 20:17
PROVIDERS: ADMIT Internal Medicine; ATTEND Internal Medicine
PROC: 0TP98DZ Removal of Intraluminal Device from Ureter, Via Natural or Artificial Opening Endoscopic (ICD-10-PCS; principal; 2025-05-14)
DX: T83.592A Infection and inflammatory reaction due to indwelling ureteral stent, initial encounter (principal); N39.0 Urinary tract infection, site not specified; Q21.10 Atrial septal defect, unspecified; I11.0 Hypertensive heart disease with heart failure; E66.01 Morbid (severe) obesity due to excess calories; Q21.0 Ventricular septal defect; T83.122A Displacement of indwelling ureteral stent, initial encounter; N20.0 Calculus of kidney; R91.1 Solitary pulmonary nodule; Z82.49 Family history of ischemic heart disease and other diseases of the circulatory system; Z98.82 Breast implant status; Y73.2 Prosthetic and other implants, materials and accessory gastroenterology and urology devices associated with adverse incidents; Y92.89 Other specified places as the place of occurrence of the external cause
CPT/HCPCS: 36415; 52000; 71045; 74176; 80048; 80061; 80076; 81001; 83735; 84443; 84702; 85025; 87040; 87086; 93005; 93306; 96361; 96365; 99291; 99292; G0378; J0696; J2405

== ENCOUNTER 2025-05-17 04:47 | Inpatient (IN) | payer OTHER ==
[~2025-05-17] VITALS: Ht 160 cm; Wt 116.2 kg
[2025-05-17] MEDS: SODIUM CHLORIDE 0.9% 1,000 ML IVB ONE (05:00)
--- NOTE | 2025-05-17 05:03 | ED.PDOC ---
General HPI Comments 39-year-old female who came to ER for flank pains. Patient discharged last May 14 diagnosed with 1. Complicated UTI with indwelling ureteral stent s/p stent removal, 2. Dislodged ureteral stent, 3. Nonobstructing right nephrolithiasis, 4. h/o ASD and VSD status post repair in 2018 at [facility], 5. Hypertensive heart disease. Patient woke up this morning with severe left flank pains, associated nausea and vomiting prompting her to come back to the ER Chief Complaint: Flank Pain Time Seen by MD: 05:01 Reviewed notes: Nurses Notes Allergies: Coded Allergies: Penicillins (Verified Allergy, Unknown, 07/16/24) Sulfa Antibiotics (Verified Allergy, Unknown, 07/16/24) Home Meds Reported Medications Amlodipine Besylate (Amlodipine Besylate) 2.5 Mg Tab, PO DAILY, TAB 05/08/25 Information Source: Patient Mode of Arrival: Ambulatory Past Medical History PAST MEDICAL HISTORY: Kidney Stones (Bilateral) Surgical History: Denies all surgeries Surgical History (Other): Ureteral stent, ASD/VSD repair [employer] History: Denies all [employer] Hx Family History Family History: Reviewed,noncontributory to illness Social History Smoker: Non-Smoker Alcohol: Denies ETOH Use Drugs: Denies Drug Use Lives In: Home Constitutional: denies: chills, diaphoresis, fatigue, fever, malaise, sweats, weakness, others EENTM: denies: blurred vision, double vision, ear bleeding, ear discharge, ear drainage, ear pain, ear ringing, eye pain, eye redness, hearing loss, mouth pain, mouth swelling, nasal discharge, nose bleeding, nose congestion, nose pain, photophobia, tearing, throat pain, throat swelling, voice changes, others Respiratory: denies: cough, hemoptysis, orthopnea, SOB at rest, shortness of breath, SOB with excertion, stridor, wheezing, others Cardiovascular: denies: chest pain, dizzy spells, diaphoresis, Dyspnea on exertion, edema, irregular heart beat, left arm pain, lightheadedness, palpitat ions, PND, syncope, others Gastrointestinal: reports: nausea, vomiting; denies: abdomen distended, abdominal pain, blood streaked bowels, constipated, diarrhea, dysphagia, difficulty swallowing, hematemesis, melena, poor appetite, poor fluid intake, rectal bleeding, rectal pain, others Genitourinary: reports: flank pain; denies: abnormal vagina bleeding, burning, dyspareunia, dysuria, frequency, hematuria, incontinence, pain, , vagina discharge, urgency, others Neurological: denies: dizziness, fainting, headache, left sided numbness, left sided weakness, numbness, paresthesia, pre-existing deficit, right sided numbness, right sided weakness, seizure, speech problems, tingling, tremors, weakness, others Musculoskeletal: denies: back pain, gout, joint pain, joint swelling, muscle pain, muscle stiffness, neck pain, others Integumetry: denies: bruises, change in color, change in hair/nails, dryness, laceration, lesions, lumps, rash, wounds, others Allergic/Immunocompromised: denies: Difficulty Healing, Frequent Infections, Hives, Itching, others Hematologic/Lymphatic: denies: anemia, blood clots, easy bleeding, easy bruising, swollen glands, others Endocrine: denies: excessive hunger, excessive sweating, excessive thirst, excessive urination, flushing, intolerance to cold, intolerance to heat, unexplained weight gain, unexplained weight loss, others Psychiatric: denies: anxiety, bipolar disorder, depression, hopeless, panic disorder, schizophrenia, sleepless, suicidal, others Physical Exam General Appearance: No Apparent Distress, Normal HEENT: Normal ENT Inspection, Pharynx Normal, TMs Normal Neck: Full Range of Motion, Non-Tender, Normal, Normal Inspection Respiratory: Chest Non-Tender, Lungs Clear, No Accessory Muscle Use, No Respiratory Distress, Normal Breath Sounds Cardiovascular: No Edema, No JVD, No Murmur, No Gallop, Normal Peripheral Pulses, Regular Rate/Rhythm Breast Exam: Deferred Gastrointestinal: No Organomegaly, Non Tender, No Pulsatile Mass, Normal Bowel Sounds, Soft Genitalia: Deferred Pelvic: Deferred Rectal: Deferred Extremities: No calf tenderness, Normal capillary refill, Normal inspection, Normal range of motion, Non-tender, No pedal edema Musculoskeletal : Apperance: Normal Neurologic: Alert, tobacco wrapping machine tender II-XII nml as Tested, No Motor Deficits, Normal Affect, Normal Mood, No Sensory Deficits Cerebellar Function: Normal Reflexes: Normal Skin: Dry, Normal Color, Warm Lymphatic: No Adenopathy Was a procedure done? Was a procedure done?: No Differential Diagnosis Kidney stone (Female): Ovarian torsion, Pyelonephritis, Renal failure, Strain, Urinary obstruction, Urolithiasis Urinary Problem (Female): Urolithiasis, UTI X-Ray, Labs, Meds, VS Vital Signs Date Time Temp Pulse Resp B/P (MAP) Pulse Ox O2 Delivery O2 Flow Rate FiO2 05/17/25 04:48 97.2 108 20 158/103 97 97.2 Lab Test 05/17/25 05:02 Range/Units White Blood Count 9.8 # 4.4-10.8 10^3/uL Red Blood Count 5.01 4.0-5.20 10^6/uL Hemoglobin 14.2 # 12.2-16.2 g/dL Hematocrit 43.9 # 36.0-46.0 % Mean Corpuscular Volume 87.6 80.0-100.0 fL Mean Corpuscular Hemoglobin 28.3 28.0-32.0 pg Mean Corpuscular Hemoglobin Concent 32.3 32.0-36.0 g/dL Red Cell Distribution Width 14.6 H 11.8-14.3 % Platelet Count 317 140-450 10^3/uL Mean Platelet Volume 8.0 6.9-10.8 fL Neutrophils (%) (Auto) 72.5 37.0-80.0 % Lymphocytes (%) (Auto) 18.3 10.0-50.0 % Monocytes (%) (Auto) 7.6 0.0-12.0 % Eosinophils (%) (Auto) 1.0 0.0-7.0 % Basophils (%) (Auto) 0.6 0.0-2.0 % Neutrophils # (Auto) 7.1 1.6-8.6 10 ^3/uL Lymphocytes # (Auto) 1.8 0.4-5.4 10 ^3/uL Monocytes # (Auto) 0.7 0-1.3 10 ^3/uL Eosinophils # (Auto) 0.1 0-0.8 10 ^3/uL Basophils # (Auto) 0.1 0-0.2 10 ^3/uL Nucleated Red Blood Cells 0.0 % Sodium Level Pending Potassium Level Pending Chloride Level Pending Carbon Dioxide Level Pending Anion Gap Pending Blood Urea Nitrogen Pending Creatinine Pending Glomerular Filtration Rate Calc Pending BUN/Creatinine Ratio Pending Serum Glucose Pending Calcium Level Pending Total Bilirubin Pending Aspartate Amino Transferase (AST) Pending Alanine Aminotransferase (ALT) Pending Alkaline Phosphatase Pending Total Protein Pending Albumin Pending Lipase Pending Current Medications Medications (Trade) Dose Ordered Sig/Kelly Route Start Time Stop Time Status Last Admin Sodium Chloride 1,000 ml @ 1,000 mls/hr Q1H ONCE IVB 05/17/25 05:00 05/17/25 05:59 05/17/25 05:00 Time of 1ST Reevaluation: 05:01 Reevaluation 1ST: Unchanged Patient Education/Counseling: Diagnosis, Treatment Family Education/Counseling: No Family Present SEPSIS Sepsis Screen Date sepsis recognized/suspect: May 17, 2025 Time Sepsis recognized/suspect: 451 Recent Procedure: No On Antibiotic Therapy: No Respiratory Rate >20: No Heart Rate >90: Yes Temp<36 C (96.8 F) or >38.3 C: No SBP <90 or MAP <65 mmHG: No New Acute Mental Status Change: No Is the patient on CPAP, BIPAP,: No Physician Orders Comprehensive Metabolic Panel (05/17/25 04:51) Lipase (05/17/25 04:51) Urinalysis (05/17/25 04:51) Test, Urine (05/17/25 04:51) Sodium Chloride 0.9% (05/17/25 05:00) Ct Ab Pel Wo Con-No Oral Or Iv (05/17/25 05:00) Vital Signs Date Time Temp Pulse Resp B/P (MAP) Pulse Ox O2 Delivery O2 Flow Rate FiO2 05/17/25 04:48 97.2 108 20 158/103 97 97.2 Laboratory Tests Test 05/17/25 05:02 White Blood Count 9.8 10^3/uL (4.4-10.8) # Medications Medications Dose Ordered Sig/Kelly Route Start Time Stop Time Status Last Admin Dose Admin Sodium Chloride 1,000 ml @ 1,000 mls/hr Q1H ONCE IVB 05/17/25 05:00 05/17/25 05:59 05/17/25 05:00 Departure 1 Departure Time of Disposition: 07:30 Impression: Primary Impression: Intractable abdominal pain Additional Impressions: Ureteral colic Mechanical complication of ureteral stent Disposition: ADMITTED INPATIENT Admit to: Med Surg Condition: Guarded Discharged With: Self Comments Patient with a history of kidney stones and ureteral stent placement now with severe abdominal pain and flank pain. Patient was given IV fluids and pain medication. Patient will need to be admitted for pain control and urology consultation Critical Care Note Critical Care Time?: No Stability Stability form required: No Heart Score Heart Score: Heart Score Response (Comments) Value History N/A 0 EKG N/A 0 Age N/A 0 Risk Factors N/A 0 Troponin N/A 0 Total 0 I personally scribed for MENDOZA SILVEIRA MD ([email or web address]) on 05/17/25 at 05:03. Electronically submitted by Buddy Danielson ([email or web address]). MENDOZA SILVEIRA MD May 17, 2025 05:03
[2025-05-17 05:27] LABS: Hematocrit 43.9 % (36.0-46.0); Hemoglobin 14.2 g/dL (12.2-16.2); Mean Corpuscular Hemoglobin 28.3 pg (28.0-32.0); Mean Corpuscular Volume 87.6 fL (80.0-100.0); Nucleated Red Blood Cells % 0.0 %
[2025-05-17 06:02] LABS: Alanine Aminotransferase 23 U/L (7-40); Albumin 4.5 g/dL (3.2-4.8); Alkaline Phosphatase 95 U/L (46-116); Anion Gap 15 (5-15); BUN/Creatinine Ratio 15.0 (10.0-20.0); Blood Urea Nitrogen 16 mg/dL (9-23); Calcium 9.8 mg/dL (8.7-10.4); Chloride 106 mmol/L (98-107); Lipase 31 U/L (12-53); Potassium 3.7 mmol/L (3.5-5.1); Sodium 140 mmol/L (136-145); Total Protein 7.8 g/dL (5.7-8.2)
[2025-05-17 06:03] LABS: Bilirubin, Total 0.5 mg/dL (0.2-1.0); Carbon Dioxide 19 mmol/L (20-31); Glucose 110 mg/dL (74-106)
[2025-05-17] MEDS: HYDROmorphone HCL 2 MG/ML VL/or syr IV ONE (06:14)
[2025-05-17] MEDS: ONDANSETRON HCL 4 MG/2 ML VIAL IV ONE (06:15)
[2025-05-17] MEDS ORDERED: NITROGLYCERIN 0.4 MG SL TAB SL PRN ×2 (07:15→20:30)
[2025-05-17] MEDS ORDERED: DOCUSATE SOD 100 MG CAP PO PRN ×2 (07:15→20:30)
[2025-05-17] MEDS ORDERED: ONDANSETRON HCL 4 MG/2 ML VIAL IV PRN ×2 (07:15→20:30)
--- NOTE | 2025-05-17 07:18 | DVHHP2 ---
History of Present Illness Reason for Visit: left flank pain History of Present Illness 39-year-old female with a past medical history of ASD and VSD status post repair in 2018 at [facility], hypertension, and left-sided kidney stones with ureteral stent placement on March 25, 2025, presents to the ED with acute onset of left flank pain, sharp in nature, accompanied by nausea, vomiting, and mild abdominal pain. She denies chest pain, shortness of breath, dysuria, or hematuria. She reports that the ureteral stent was removed on May 13, 2025, by Dr. Echols / Provider Thu in urology. Chart review shows that the patient was recently discharged on May 15, 2025, after leaving AMA during her hospitalization for complicated UTI. According to the patient, during her prior hospitalization, imaging confirmed that the ureteral stent had migrated. She was told she could be discharged and follow up with urology as an outpatient due to a non- obstructing stone. She now returns due to concern that the stone may have moved, causing pain. In the ED, she was given Dilaudid and Zofran with some relief. CT abdomen/pelvis revealed a pulmonary nodule, left ureteral stent still present but malpositioned, and a non-obstructing stone findings consistent with imaging reviewed on May 13, 2025. Her CBC was unremarkable, and creatinine was 1.07. She will be admitted for acute intractable flank pain and repeat imaging, with likely urology consultation for evaluation of possible stent reintervention. Past Medical History see hpi above Past Surgical History see hpi above Family History Reviewed, non-contributory to the management of this case. Past Social History The patient lives at home, denies smoking, alcohol or illicit drugs abuse. Review of Systems Constitutional: No: Fever, Chills, Sweats, Weakness, Malaise, Other Eyes: No: Pain, Vision change, Conjunctivae inflammation, Eyelid inflammation, Other, Redness ENT: No: Ear pain, Ear discharge, Nose pain, Nose discharge, Nose congestion, Mouth pain, Mouth swelling, Throat pain, Throat swelling, Other Respiratory: No: Cough, Dry, Shortness of breath, SOB with excertion, Wheezing, Hemoptysis, Pleuritic Pain, Sputum, Wheezing, Other Cardiovascular: No: Chest Pain, Palpitations, Orthopnea, Paroxysmal Noc. Dyspnea, Edema, Lt Headedness, Other Gastrointestinal: Nausea, Vomiting, Abdominal Pain; No: Diarrhea, Constipation, Melena, Hematochezia, Other Genitourinary: No Dysuria, No Frequency, No Incontinence, No Hematuria, No Retention, No Other Musculoskeletal: No: other, neck pain, shoulder pain, arm pain, back pain, hand pain, leg pain, foot pain Skin: No: Rash, Lesions, Jaundice, Bruising, Other Neurological: No: Weakness, Numbness, Incoordination, Change in speech, Confusion, Seizures, Other Allergies: Coded Allergies: Penicillins (Verified Allergy, Unknown, 07/16/24) Sulfa Antibiotics (Verified Allergy, Unknown, 07/16/24) Exam Vital Signs Vital Signs Date Time Temp Pulse Resp B/P (MAP) Pulse Ox O2 Delivery O2 Flow Rate FiO2 05/17/25 06:36 95 18 96 Room Air 05/17/25 06:36 97.5 97/57 (70) 97.5 General Appearance: Alert, Oriented X3, Cooperative, No acute distress HEENT: Atraumatic, PERRLA, EOMI, Mucous membr. moist/pink Respiratory: Clear to auscultation, Normal air movement Cardiovascular: Regular rate, Normal S1, Normal S2, No murmurs Abdominal: Normal bowel sounds, Soft, No tenderness, No hepatospenomegaly, No masses, Other (left flank pain ) Extremities: No clubbing, No cyanosis, No edema, Normal pulses, No tenderness/swelling Skin: No rashes, No breakdown, No significant lesion Neuro: Normal gait, Normal speech, Strength at 5/5 X4 ext, Normal tone, Sensation intact, Cranial nerves 3-12 NL Psych/Mental Status: Mental status NL, Mood NL Labs/Xrays I reviewed labs, imaging CT scan abdomen pelvis, EKG and all diagnostic studies on this patient from ED records and the medical chart from May 13, [address] scan abd pelvis fu results Labs Test 05/17/25 05:02 Range/Units White Blood Count 9.8 # 4.4-10.8 10^3/uL Red Blood Count 5.01 4.0-5.20 10^6/uL Hemoglobin 14.2 # 12.2-16.2 g/dL Hematocrit 43.9 # 36.0-46.0 % Mean Corpuscular Volume 87.6 80.0-100.0 fL Mean Corpuscular Hemoglobin 28.3 28.0-32.0 pg Mean Corpuscular Hemoglobin Concent 32.3 32.0-36.0 g/dL Red Cell Distribution Width 14.6 H 11.8-14.3 % Platelet Count 317 140-450 10^3/uL Mean Platelet Volume 8.0 6.9-10.8 fL Neutrophils (%) (Auto) 72.5 37.0-80.0 % Lymphocytes (%) (Auto) 18.3 10.0-50.0 % Monocytes (%) (Auto) 7.6 0.0-12.0 % Eosinophils (%) (Auto) 1.0 0.0-7.0 % Basophils (%) (Auto) 0.6 0.0-2.0 % Neutrophils # (Auto) 7.1 1.6-8.6 10 ^3/uL Lymphocytes # (Auto) 1.8 0.4-5.4 10 ^3/uL Monocytes # (Auto) 0.7 0-1.3 10 ^3/uL Eosinophils # (Auto) 0.1 0-0.8 10 ^3/uL Basophils # (Auto) 0.1 0-0.2 10 ^3/uL Nucleated Red Blood Cells 0.0 % Sodium Level 140 136-145 mmol/L Potassium Level 3.7 3.5-5.1 mmol/L Chloride Level 106 98-107 mmol/L Carbon Dioxide Level 19 L 20-31 mmol/L Anion Gap 15 5-15 Blood Urea Nitrogen 16 9-23 mg/dL Creatinine 1.07 H 0.550-1.02 mg/dL Glomerular Filtration Rate Calc 69 >90 mL/min BUN/Creatinine Ratio 15.0 10.0-20.0 Serum Glucose 110 H 74-106 mg/dL Calcium Level 9.8 8.7-10.4 mg/dL Total Bilirubin 0.5 0.2-1.0 mg/dL Aspartate Amino Transferase (AST) 18 13-40 U/L Alanine Aminotransferase (ALT) 23 7-40 U/L Alkaline Phosphatase 95 46-116 U/L Total Protein 7.8 5.7-8.2 g/dL Albumin 4.5 3.2-4.8 g/dL Lipase 31 12-53 U/L SEPSIS Sepsis Screen Date sepsis recognized/suspect: May 17, 2025 Time Sepsis recognized/suspect: 635 Recent Procedure: No On Antibiotic Therapy: No Respiratory Rate >20: No Heart Rate >90: Yes Temp<36 C (96.8 F) or >38.3 C: No SBP <90 or MAP <65 mmHG: No New Acute Mental Status Change: No Is the patient on CPAP, BIPAP,: No Physician Orders Urinalysis (05/17/25 04:51) Test, Urine (05/17/25 04:51) Ct Ab Pel Wo Con-No Oral Or Iv (05/17/25 05:00) Vital Signs Date Time Temp Pulse Resp B/P (MAP) Pulse Ox O2 Delivery O2 Flow Rate FiO2 05/17/25 06:36 95 18 96 Room Air 05/17/25 06:36 97.5 95 18 97/57 (70) 96 97.5 05/17/25 06:14 75 16 135/72 05/17/25 04:48 97.2 108 20 158/103 97 97.2 Laboratory Tests Test 05/17/25 05:02 White Blood Count 9.8 10^3/uL (4.4-10.8) # Medications Medications Dose Ordered Sig/Kelly Route Start Time Stop Time Status Last Admin Dose Admin Hydromorphone HCl 1 mg ONCE ONCE IV 05/17/25 05:00 05/17/25 05:02 DC 05/17/25 06:14 1 MG Ondansetron HCl 4 mg ONCE ONCE IV 05/17/25 05:00 05/17/25 05:02 DC 05/17/25 06:15 4 MG Sodium Chloride 1,000 ml @ 1,000 mls/hr Q1H ONCE IVB 05/17/25 05:00 05/17/25 05:59 DC 05/17/25 05:00 1,000 MLS/HR Assessment/Plan Assessment/Plan 39-year-old female admitted for acute intractable left flank pain in the setting of recent ureteral stent removal with possible retained or migrated stent and non-obstructive nephrolithiasis. acute Left Flank Pain Likely Nephrolithiasis / Retained Stent Acute pain, nausea, vomiting post recent stent removal CT scan shows left ureteral stent still in place/malpositioned, non-obstructing stone from Ct scan results on 05/13/25, Repeat CT abd/pelvis to confirm stent location and rule out new obstruction Pain management with IV Dilaudid PRN Urology consult (Dr. Vanessa team) for evaluation and further recommendations if ct scan abnormal Complicated Urinary Tract Infection Recent Recent discharge for UTI; no current symptoms of dysuria or hematuria UA and urine culture pending Consider empiric antibiotics if infectious signs recur chronic problems Hypertension Continue home medications if BP tolerates History of ASD VSD, s/p repair in 2018 No cardiac symptoms reported Nephrolithiasis History of ureteral stent FEN / PPx Fluids: IV NS 100 mL/hr Electrolytes: Monitor BMP daily Nutrition: diet DVT Prophylaxis: SCDs while inpatient GI Prophylaxis: no hx of gerds or gi bleed no ppx Disposition Admit to medical service Repeat CT to assess current stent position and evaluate for new obstruction Consult urology for possible stent retrieval Manage pain and nausea Discharge once pain controlled and plan confirmed by urology Plan discussed with: Patient Date of Service: May 17, 2025 Billing Provider: FRANCISCO LAW DNP Common Visit Codes: [id number] INP/OBS CARE (HIGH) FRANCISCO LAW DNP May 17, 2025 07:18
[2025-05-17] MEDS: SODIUM CHLORIDE 0.9% 1,000 ML IV SCH ×2 (10:03→20:30)
[2025-05-17 10:20] LABS: Urine Amorphous Crystal FEW /hpf (None Seen); Urine Protein, UAD TRACE (Negative)
--- NOTE | 2025-05-17 10:57 | DVH ---
Indication: left flank pain Technique: CT axial images of the abdomen and pelvis are obtained without contrast. Coronal and sagittal reformats were obtained. Radiation Dose Information: CTDI volume is 27 mGy. Dose-length product is 1551 mGy*cm Comparison: CT CT AB PEL WO CON-NO ORAL OR IV on DOS: 05/13/25 FINDINGS: There is limited interpretation of the abdomen and pelvis without administration of intravenous contrast. Lung bases demonstrate atelectasis. Left upper lobe lingular segment partially calcified nodule measuring 1.2 cm. Adrenal glands, spleen, pancreas unremarkable in shape. Liver unremarkable in shape. No CT evidence for cholelithiasis. Nonobstructing right renal calculus measuring 6 mm. Left kidney demonstrates moderate to severe left hydroureteronephrosis secondary to distal 10 mm. Left perinephric and periureteral edema/stranding Stomach is partially distended. Small bowel loops are normal in caliber. Large bowel relatively nondistended. Normal appendix. Bladder contracted. No free pelvic fluid. No inguinal lymphadenopathy. No aggressive osseous process. IMPRESSION: Limited evaluation without contrast. Moderate to severe left hydroureteronephrosis secondary to distal left ureteral calculus measuring 10 mm. 1.2 cm left upper lobe lingular segment partially calcified nodule likely sequela of remote granulomatous disease. Nonobstructing right renal calculus. Interval removal of the left ureteral stent. Other findings as described.
[2025-05-17] MEDS: HYDROmorphone HCL 2 MG/ML VL/or syr IV PRN ×2 (16:27→20:47)
[2025-05-17] MEDS: HYDROmorphone HCL 2 MG/ML VL/or syr ONE (16:30)
[2025-05-17 17:00] VITALS: BP 130/68; PULSE 82; RESP 16; TEMP 97.9; O2SAT 98
[2025-05-17 17:16] VITALS: BP 133/67; PULSE 84; RESP 16; TEMP 98; O2SAT 97
[2025-05-17 19:15] VITALS: PULSE 84; RESP 18
[2025-05-17 20:00] VITALS: PULSE 84; RESP 16; O2SAT 94
[2025-05-17 20:57] VITALS: BP 116/50; PULSE 86; RESP 20; TEMP 98.1; O2SAT 94
[2025-05-18 01:00] VITALS: BP 96/59; PULSE 90; RESP 20; TEMP 97.9; O2SAT 100
[2025-05-18 02:43] LABS: Hematocrit 40.2 % (36.0-46.0); Hemoglobin 13.1 g/dL (12.2-16.2); Mean Corpuscular Hemoglobin 28.2 pg (28.0-32.0); Mean Corpuscular Volume 86.3 fL (80.0-100.0); Nucleated Red Blood Cells % 0.1 %
[2025-05-18 03:12] LABS: Alanine Aminotransferase 22 U/L (7-40); Albumin 4.3 g/dL (3.2-4.8); Alkaline Phosphatase 91 U/L (46-116); Anion Gap 10 (5-15); BUN/Creatinine Ratio 16.0 (10.0-20.0); Blood Urea Nitrogen 16 mg/dL (9-23); Calcium 9.2 mg/dL (8.7-10.4); Carbon Dioxide 25 mmol/L (20-31); Chloride 106 mmol/L (98-107); Glucose 92 mg/dL (74-106); Potassium 4.1 mmol/L (3.5-5.1); Sodium 141 mmol/L (136-145); Total Protein 7.2 g/dL (5.7-8.2)
[2025-05-18 03:13] LABS: Bilirubin, Total 0.5 mg/dL (0.2-1.0)
[2025-05-18 05:00] VITALS: BP 107/61; PULSE 84; RESP 18; TEMP 97.8; O2SAT 97
[2025-05-18 08:00] VITALS: PULSE 71; RESP 17; O2SAT 99
[2025-05-18 09:00] VITALS: BP 114/60; PULSE 78; RESP 16; TEMP 98.2; O2SAT 99
[2025-05-18 13:00] VITALS: BP 121/64; PULSE 78; RESP 18; TEMP 98.4; O2SAT 100
[2025-05-18] MEDS ORDERED: NALO4SPR2 (13:17)
[2025-05-18] MEDS ORDERED: HYDR1TAB97 PO ×2 (13:17→13:19)
[2025-05-18] MEDS ORDERED: ZOFR4T PO (13:17)
--- NOTE | 2025-05-18 13:25 | DVHDS2 ---
Discharge Summary Date of Admission May 17, 2025 at 07:14 Date of Discharge: May 18, 2025 Labs/Diagnostic Data: Laboratory Results Test 05/18/25 02:31 05/17/25 09:24 05/17/25 05:02 White Blood Count 7.1 10^3/uL (4.4-10.8) Red Blood Count 4.65 10^6/uL (4.0-5.20) Hemoglobin 13.1 g/dL (12.2-16.2) Hematocrit 40.2 % (36.0-46.0) Mean Corpuscular Volume 86.3 fL (80.0-100.0) Mean Corpuscular Hemoglobin 28.2 pg (28.0-32.0) Mean Corpuscular Hemoglobin Concent 32.6 g/dL (32.0-36.0) Red Cell Distribution Width 14.1 % (11.8-14.3) Platelet Count 293 10^3/uL (140-450) Mean Platelet Volume 7.9 fL (6.9-10.8) Neutrophils (%) (Auto) 69.0 % (37.0-80.0) Lymphocytes (%) (Auto) 21.3 % (10.0-50.0) Monocytes (%) (Auto) 7.5 % (0.0-12.0) Eosinophils (%) (Auto) 1.4 % (0.0-7.0) Basophils (%) (Auto) 0.8 % (0.0-2.0) Neutrophils # (Auto) 4.9 10 ^3/uL (1.6-8.6) Lymphocytes # (Auto) 1.5 10 ^3/uL (0.4-5.4) Monocytes # (Auto) 0.5 10 ^3/uL (0-1.3) Eosinophils # (Auto) 0.1 10 ^3/uL (0-0.8) Basophils # (Auto) 0.1 10 ^3/uL (0-0.2) Nucleated Red Blood Cells 0.1 % Sodium Level 141 mmol/L (136-145) Potassium Level 4.1 mmol/L (3.5-5.1) Chloride Level 106 mmol/L (98-107) Carbon Dioxide Level 25 mmol/L (20-31) Anion Gap 10 (5-15) Blood Urea Nitrogen 16 mg/dL (9-23) Creatinine 1.00 mg/dL (0.550-1.02) Glomerular Filtration Rate Calc 74 mL/min (>90) BUN/Creatinine Ratio 16.0 (10.0-20.0) Serum Glucose 92 mg/dL (74-106) Calcium Level 9.2 mg/dL (8.7-10.4) Total Bilirubin 0.5 mg/dL (0.2-1.0) Aspartate Amino Transferase (AST) 19 U/L (13-40) Alanine Aminotransferase (ALT) 22 U/L (7-40) Alkaline Phosphatase 91 U/L (46-116) Total Protein 7.2 g/dL (5.7-8.2) Albumin 4.3 g/dL (3.2-4.8) Urine Color Yellow (Yellow) Urine Clarity Hazy (Clear) Urine pH 6.0 (5.0-9.0) Urine Specific [place] 1.027 (1.001-1.035) Urine Protein Trace (Negative) Urine Ketones 1+ (Negative) Urine Blood 1+ /uL (Negative) Urine Nitrite Negative (Negative) Urine Bilirubin Negative (Negative) Urine Urobilinogen Normal mg/dL (Negative) Urine Leukocyte Esterase Trace /uL (Negative) Urine RBC 35 /hpf (0 - 4) Urine Microscopic WBC 13 /HPF (0-5) Urine Squamous Epithelial Cells Mod /hpf (<5) Urine Calcium Oxalate Crystals Few (None Seen) Urine Amorphous Crystals Few /hpf (None Seen) Urine Bacteria Few /hpf (None Seen) Urine Mucus Few (None Seen) Urine Glucose Normal mg/dL (Normal) Urine Test Negative (Negative) Lipase 31 U/L (12-53) Other Laboratory Tests 05/18/25 02:31 Brief Hx & Hospital Course: 39-year-old female with a known history of left ureteric stone status post ureteric stent placement, status post ureteric stent removal recently presented to the hospital with a worsening left flank pain found to have left ureteric stone with a hydronephrosis. Patient's has a ureteric stent placed in the past which was removed recently. Patient's UTI was treated. Patient is currently complaining of 0/10 pain and requesting to go home as she told me that Dr. Joel only urologist once out to be cardiac clear before she goes for urological intervention. Patient does have known history of ASD as well as VSD status post repair in 2018. Patient is requesting to go home patient is stable to be discharged please return to ER if there is any worsening flank pain or burning urination fevers chills or any concern. Condition at Discharge: Stable Final Diagnosis/Problems List 1. Acute ureteral colic with a [id number] hydronephrosis with a 1 cm distal ureteric stone 2. Recent UTI treated 3. Recent left ureteric stent removal. acute Left Flank Pain Likely Nephrolithiasis / Retained Stent Discharge Disposition: Home SNF Discharge Will this Physician continue t: No Discharge Instruct/Medications Diet: Cardiac 2g Na,low cholest Activity: See Comment Activity comment: No driving, no signing legal documents, no playing on machinery while on narcotics Follow Up/Referral: Please follow up with the PCP in one week Follow up with the Cardiology for outpatient cardiac clearance 3. Follow up with the Urology as scheduled Medications: [place], Narcan and Zofran as prescribed Scheduled Amlodipine Besylate (Amlodipine Besylate), Unknown Dose PO DAILY, (Reported) Naloxone HCl (Narcan), 4 MG NA ACCOUNT INFORMATION CLERK Scheduled PRN Hydrocodone-Acetaminophen (Hydrocodone/Acetaminophen 5-325 mg), 1 TAB PO Q6HP PRN Ondansetron Odt 4MG Tab (Zofran Po), 4 MG PO Q6HP PRN Discharge Statement: "Patient was advised to return to the ER or call 911 if any headaches, dizziness, shortness of breath, chest pain, abdominal pain, bleeding, fevers, or worsening of medical condition. Patient was counseled about treatment plan, medications, possible side effects, patientverbalized understanding. All questions were answered to the best of my ability. This discharge took greater then 30 minutes in planning, reviewing documentation, counseling the patient, and discussing with other team members." ASSESSMENT ASSESSMENT Assessment 1. Acute ureteral colic with a rgctmpfr-[id number] hydronephrosis with a 1 cm distal ureteric stone 2. Recent UTI treated 3. Recent left ureteric stent removal. acute Left Flank Pain Likely Nephrolithiasis / Retained Stent Date of Service: May 18, 2025 Billing Provider: BILL CASTELLANOS MD Common Visit Codes: [id number]-[id number] DISCH DAY >30min BILL CASTELLANOS MD May 18, 2025 13:25
== END 2025-05-18 15:30 | disposition home or self-care (01) | DRG 694 ==
LOC: ER 04:47 → OVERFLOW 07:14
PROVIDERS: ADMIT Nurse Practitioner Family; ATTEND Nurse Practitioner Family
DX: N13.2 Hydronephrosis with renal and ureteral calculous obstruction (principal); I10 Essential (primary) hypertension; Z87.442 Personal history of urinary calculi; Z87.74 Personal history of (corrected) congenital malformations of heart and circulatory system; Z88.0 Allergy status to penicillin; Z88.2 Allergy status to sulfonamides
CPT/HCPCS: 36415; 74176; 80053; 81001; 81025; 83690; 85025; 87081; 96361; 96374; 96375; G0378; J2405

== ENCOUNTER 2025-05-19 14:03 | Inpatient (IN) | payer OTHER ==
[~2025-05-19] VITALS: Ht 165.1 cm; Wt 109.6 kg
[~2025-05-19 14:03] MED LIST changes: +HYDR1TAB97 PO; +NALO4SPR2; +ZOFR4T PO
[2025-05-19 16:00] VITALS: BP 133/82; PULSE 92; RESP 16; TEMP 97.8; O2SAT 97
[2025-05-19] MEDS ORDERED: NITROGLYCERIN 0.4 MG SL TAB SL PRN (16:15)
[2025-05-19] MEDS ORDERED: MORPHINE SULFATE INJ 2 MG/ml SYRG IV PRN (16:15)
--- NOTE | 2025-05-19 16:22 | DVHINCON2 ---
Date of service: May 19, 2025 Referring Physician Hospitalist Reason for Consultation 10 mm left distal ureteral stone History of Present Illness Patient has symptomatic 10 mm left distal ureteral stone. She needs to undergo left URSLL and stent placement tomorrow. Past Medical History Kidney stone Past Surgical History Stent placement stent removal Family History: FH: myocardial infarction grandfather Allergies: Coded Allergies: Penicillins (Verified Allergy, Unknown, 07/16/24) Sulfa Antibiotics (Verified Allergy, Unknown, 07/16/24) Home Meds Active Scripts Hydrocodone-Acetaminophen (Hydrocodone/Acetaminophen 5-325 mg) 1 Tab Tab, 1 TAB PO Q6HP PRN, #14 TAB Prov:BILL CASTELLANOS MD 05/18/25 Ondansetron Odt 4MG Tab (ZOFRAN PO) 4 Mg Tb, 4 MG PO Q6HP PRN, #20 TAB ODT TAB-DISSOLVE IN MOUTH, THEN SWALLOW Prov:BILL CASTELLANOS MD 05/18/25 Naloxone HCl (Narcan) 4 Mg/0.1 Ml Spr, 4 MG NA RECORDS CUSTODIAN, #2 SPRAY Prov:BILL CASTELLANOS MD 05/18/25 Reported Medications Amlodipine Besylate (Amlodipine Besylate) 2.5 Mg Tab, PO DAILY, TAB 05/08/25 Current Medications Current Medications Medications (Trade) Dose Ordered Sig/Kelly Route PRN Reason Start Time Stop Time Status Last Admin Nitroglycerin (Ntrostat Sublingual) 0.4 mg Q5MINP PRN SL FOR CHEST PAIN 05/19/25 16:15 UNV Morphine Sulfate 2 mg Q30M PRN IV FOR CHEST PAIN 05/19/25 16:15 UNV Review of Systems Left flank pain Physical Exam NAD Left CVAT Assessment Left distal ureteral stone, 10 mm Left hydronephrosis Plan/Recommendation Left URSLL with left ureteral stent placement. Plan discussed with: Patient, Other JAKE SHERIDAN MD May 19, 2025 16:22
[2025-05-19 17:00] VITALS: BP 133/82; PULSE 98; RESP 18; TEMP 97.8; O2SAT 98
[2025-05-19 19:24] LABS: Hematocrit 38.7 % (36.0-46.0); Hemoglobin 12.7 g/dL (12.2-16.2); Mean Corpuscular Hemoglobin 28.4 pg (28.0-32.0); Mean Corpuscular Volume 87.0 fL (80.0-100.0); Nucleated Red Blood Cells % 0.0 %
[2025-05-19 19:38] LABS: Alanine Aminotransferase 21 U/L (7-40); Albumin 4.2 g/dL (3.2-4.8); Alkaline Phosphatase 85 U/L (46-116); Anion Gap 12 (5-15); BUN/Creatinine Ratio 13.0 (10.0-20.0); Bilirubin, Total 0.3 mg/dL (0.2-1.0); Blood Urea Nitrogen 12 mg/dL (9-23); Calcium 9.5 mg/dL (8.7-10.4); Carbon Dioxide 23 mmol/L (20-31); Glucose 102 mg/dL (74-106); Potassium 4.1 mmol/L (3.5-5.1); Sodium 143 mmol/L (136-145); Total Protein 7.3 g/dL (5.7-8.2)
[2025-05-19 19:44] LABS: Chloride 108 mmol/L (98-107)
[2025-05-19 19:54] LABS: INR 0.97 (0.9-1.15); Partial Thromboplastin Time 30.5 SEC (24.5-34.5); Prothrombin Time 10.3 sec (9.3-11.8)
[2025-05-19 20:00] VITALS: RESP 18; O2SAT 98
[2025-05-19 21:00] VITALS: BP 109/49; PULSE 91; RESP 18; TEMP 98.5; O2SAT 99
[2025-05-19 22:43] LABS: Urine Protein, UAD TRACE (Negative)
[2025-05-20] VITALS (10 sets, daily range): BP systolic 108–123; BP diastolic 60–75; PULSE 85–107; RESP 16–22; TEMP 97.5–98.2; O2SAT 94–99
--- NOTE | 2025-05-20 06:52 | DVH ---
INDICATION: PROCEDURE TODAY TECHNIQUE: Frontal view of the chest. COMPARISON: XY CHEST XRAY 1 VIEW on DOS: 05/14/25, XY CHEST TWO VIEWS ROUTINE on DOS: 05/08/25, CT CT ANGIO CHEST CONTRAST on DOS: 07/16/24, XY CHEST PORTABLE on DOS: 07/16/24 FINDINGS: . The heart and mediastinal contours are grossly unremarkable. There is no evidence of pleural disease. The lungs are clear. The bony structures of the chest are intact without fracture. IMPRESSION: 1. No evidence of acute disease.
--- NOTE | 2025-05-20 14:35 | DVHHP2 ---
History of Present Illness History of Present Illness 39-year-old female with a past medical history of ASD and VSD status post repair in 2018 at [facility], hypertension, and left-sided kidney stones with ureteral stent placement on March 25, 2025, presented as planned admission into urology service for recurrent left nephrolithiasis, obstructive with hydronephrosis. she continues to have nausea and left flank pain. left flank pain, sharp in nature, accompanied by nausea, vomiting, and mild abdominal pain. She denies chest pain, shortness of breath, dysuria, or hematuria. She reports that the ureteral stent was removed on May 13, 2025, by urology. Chart review shows that the patient was recently discharged on May 15, 2025, for her hospitalization for complicated UTI. Review of Systems Constitutional: No: Fever, Chills, Sweats, Weakness, Malaise, Other Cardiovascular: No: Chest Pain, Palpitations, Orthopnea, Paroxysmal Noc. Dyspnea, Edema, Lt Headedness, Other Gastrointestinal: Nausea; No: Vomiting, Abdominal Pain, Diarrhea, Constipation, Melena, Hematochezia, Other Genitourinary: No Dysuria, No Frequency, No Incontinence, No Hematuria, No Retention, No Other Musculoskeletal: No: other, neck pain, shoulder pain, arm pain, back pain, hand pain, leg pain, foot pain Neurological: No: Weakness, Numbness, Incoordination, Change in speech, Confusion, Seizures, Other Allergies: Coded Allergies: Penicillins (Verified Allergy, Unknown, 07/16/24) Sulfa Antibiotics (Verified Allergy, Unknown, 07/16/24) Medications Current Medications Medications Dose Ordered Sig/Kelly Route Start Time Stop Time Status Last Admin Dose Admin Nitroglycerin 0.4 mg Q5MINP PRN SL 05/19/25 16:15 Morphine Sulfate 2 mg Q30M PRN IV 05/19/25 16:15 Acetaminophen/ Hydrocodone Bitart 1 tab Q4HP PRN PO 05/19/25 20:15 Hydromorphone HCl 0.25 mg Q4HPRN PRN IV 05/19/25 20:15 Exam Vital Signs Vital Signs Date Time Temp Pulse Resp B/P (MAP) Pulse Ox O2 Delivery O2 Flow Rate FiO2 05/20/25 09:00 98.2 85 16 108/63 (78) 95 98.2 05/20/25 08:00 Room Air* 0 21 Exam GEN: Healthy appearing, well-developed, NAD. HEENT: NC/AT; MMM. CV: RRR, no m/r/g. LUNGS: CTAB, no w/r/c. ABD: Soft, NT/ND, NBS, no masses or organomegaly. EXT: skin Warm, well perfused. no rashes. No clubbing, cyanosis, or edema. NEURO: Ambulating with no limitations. No focal deficits. Labs/Xrays Labs Test 05/19/25 21:50 05/19/25 18:52 Range/Units Urine Color Yellow Yellow Urine Clarity Turbid H Clear Urine pH 5.5 5.0-9.0 Urine Specific [place] 1.026 1.001-1.035 Urine Protein Trace H Negative Urine Ketones Negative Negative Urine Blood Trace H Negative /uL Urine Nitrite Negative Negative Urine Bilirubin Negative Negative Urine Urobilinogen Normal Negative mg/dL Urine Leukocyte Esterase Trace Negative /uL Urine RBC 31 0 - 4 /hpf Urine Microscopic WBC 14 H 0-5 /HPF Urine Squamous Epithelial Cells Few <5 /hpf Urine Calcium Oxalate Crystals Few None Seen Urine Bacteria Few H None Seen /hpf Urine Mucus Few None Seen Urine Glucose Normal Normal mg/dL White Blood Count 6.8 4.4-10.8 10^3/uL Red Blood Count 4.46 4.0-5.20 10^6/uL Hemoglobin 12.7 12.2-16.2 g/dL Hematocrit 38.7 36.0-46.0 % Mean Corpuscular Volume 87.0 80.0-100.0 fL Mean Corpuscular Hemoglobin 28.4 28.0-32.0 pg Mean Corpuscular Hemoglobin Concent 32.7 32.0-36.0 g/dL Red Cell Distribution Width 14.7 H 11.8-14.3 % Platelet Count 303 140-450 10^3/uL Mean Platelet Volume 8.2 6.9-10.8 fL Neutrophils (%) (Auto) 67.1 37.0-80.0 % Lymphocytes (%) (Auto) 22.9 10.0-50.0 % Monocytes (%) (Auto) 8.3 0.0-12.0 % Eosinophils (%) (Auto) 0.7 0.0-7.0 % Basophils (%) (Auto) 1.0 0.0-2.0 % Neutrophils # (Auto) 4.6 1.6-8.6 10 ^3/uL Lymphocytes # (Auto) 1.6 0.4-5.4 10 ^3/uL Monocytes # (Auto) 0.6 0-1.3 10 ^3/uL Eosinophils # (Auto) 0 0-0.8 10 ^3/uL Basophils # (Auto) 0.1 0-0.2 10 ^3/uL Nucleated Red Blood Cells 0.0 % Prothrombin Time 10.3 9.3-11.8 sec Prothrombin Time INR 0.97 0.9-1.15 Activated Partial Thromboplast Time 30.5 24.5-34.5 SEC Sodium Level 143 136-145 mmol/L Potassium Level 4.1 3.5-5.1 mmol/L Chloride Level 108 H 98-107 mmol/L Carbon Dioxide Level 23 20-31 mmol/L Anion Gap 12 5-15 Blood Urea Nitrogen 12 9-23 mg/dL Creatinine 0.92 0.550-1.02 mg/dL Glomerular Filtration Rate Calc 82 >90 mL/min BUN/Creatinine Ratio 13.0 10.0-20.0 Serum Glucose 102 74-106 mg/dL Calcium Level 9.5 8.7-10.4 mg/dL Total Bilirubin 0.3 0.2-1.0 mg/dL Aspartate Amino Transferase (AST) 22 13-40 U/L Alanine Aminotransferase (ALT) 21 7-40 U/L Alkaline Phosphatase 85 46-116 U/L Total Protein 7.3 5.7-8.2 g/dL Albumin 4.2 3.2-4.8 g/dL Beta HCG, Quantitative 1.2 L 1.5-4.2 mIU/mL SEPSIS Sepsis Screen Physician Orders Electrocardigram (05/20/25 10:33) Vital Signs Date Time Temp Pulse Resp B/P (MAP) Pulse Ox O2 Delivery O2 Flow Rate FiO2 05/20/25 09:00 98.2 85 16 108/63 (78) 95 98.2 05/20/25 08:00 85 16 95 Room Air* 0 21 Assessment/Plan Assessment/Plan 39-year-old female with a past medical history of ASD and VSD status post repair in 2018 at [facility], hypertension, and left-sided kidney stones with ureteral stent placement on March 25, 2025, presented as planned admission into urology service for recurrent left nephrolithiasis, obstructive with hydronephrosis. she continues to have nausea and left flank pain. left flank pain, sharp in nature, accompanied by nausea, vomiting, and mild abdominal pain. She denies chest pain, shortness of breath, dysuria, or hematuria. She reports that the ureteral stent was removed on May 13, 2025, by urology. Chart review shows that the patient was recently discharged on May 15, 2025, for her hospitalization for complicated UTI. 05/20: plan for OR today. patient has been npo [place]. resume full liquid diet (cardiac) after procedure . diagnosis: recurrent left nephrolithiasis, history of failed stent placement, with current recurrent hydronephrosis. acute Left Flank Pain due to above recent Complicated Urinary Tract Infection resolved Hypertension Continue home medications if BP tolerates History of ASD VSD, s/p repair in 2017 No cardiac symptoms reported Nephrolithiasis History of ureteral stent plan: - pain control prn, 1st line Tylenol, second-line [place] 10 q.6, 3rd line morphine to q.6. -Continue other home medications Continue medications per urology -plan for urology intervention today 05/20/2025. Patient has been NPO since midnight 05/19. Med surge Full code Plan discussed with: Patient Date of Service: May 20, 2025 Billing Provider: RONNI ALLAN MD Common Visit Codes: 80033-LDYTBTX INP/OBS CARE (HIGH) Secondary Visit Codes: 32919-SJXUQOSY CARE PLAN 30 MINUTES RONNI ALLAN MD May 20, 2025 14:35
[2025-05-20] MEDS: CIPROFLOXACIN 400MG/200ML 200 ML IV ONE (14:41)
[2025-05-20] MEDS ORDERED: KETOROLAC TROMETH 30 MG/ML 1ML VIAL IV ONE (15:00)
[2025-05-20] MEDS ORDERED: METOCLOPRAMIDE HCL 5MG/ml INJ 2ml VIAL IV PRN (15:00)
[2025-05-20] MEDS ORDERED: HYDROmorphone HCL 2 MG/ML VL/or syr IV PRN (15:00)
[2025-05-20] MEDS ORDERED: ROCURONIUM 10MG/ML 10ML VIAL IV ONE (15:20)
[2025-05-20] MEDS ORDERED: fentaNYL CITRATE 100 MCG/2 ML VL ONE (15:20)
[2025-05-20] MEDS ORDERED: KETAMINE 50mg/ML 1ml syringe ONE (15:20)
[2025-05-20] MEDS ORDERED: LIDOCAINE HCL 2% TOP JELLY 5ML TOP ONE (15:20)
[2025-05-20] MEDS ORDERED: SODIUM CHLORIDE LOCK 10 ML ONE (15:20)
[2025-05-20] MEDS ORDERED: MEPERIDINE HCL (25 MG/ML) 1ML VIAL ONE (15:20)
[2025-05-20] MEDS ORDERED: LIDOCAINE 1% INJ PF 5ML AMP ONE (15:20)
[2025-05-20] MEDS ORDERED: PROPOFOL 10 MG/ML 20 ML IV ONE (15:20)
[2025-05-20] MEDS ORDERED: MORPHINE SULFATE INJ 2 MG/ml SYRG IV PRN (15:51)
--- NOTE | 2025-05-20 17:46 | DVH ---
C-ARM FLUOROSCOPY: PROCEDURE: Left ureteral Laser lithotripsy FLUOROSCOPY TIME: 28.1 seconds Air Kerma: 15.69mGy mgy FINDINGS: Spot intraoperative C arm radiographs demonstrating left-sided ureteral lithotripsy.. IMPRESSION: 1. Please refer to surgical report for detailed findings.
[2025-05-20] MEDS: MORPHINE SULFATE 4 MG/ML SYR/VIAL IV PRN (17:48)
--- NOTE | 2025-05-20 17:48 | DVH ---
Date: 05/20/2025 04:27 PM Examination: XY KUB ABDOMEN SINGLE VIEW History: LEFT URETERAL LASER LITHOTRIPSY Comparison: None TECHNIQUE: Frontal views of the abdomen was obtained. 4 images FINDINGS: 4 images of the left ureteral lithotripsy Total fluoro time 28.1 sec Cumulative dose: 15.69mGy IMPRESSION: 1. Nonobstructive bowel gas pattern.
[2025-05-20] MEDS: HYDROmorphone HCL 2 MG/ML VL/or syr ONE ×2 (17:58→18:16)
--- NOTE | 2025-05-20 18:00 | DVHNC2 ---
Procedure - OPERATIVE REPORT Pre-op. Diagnosis: Ureteral stone - Left, 10 mm distal Left hydronephrosis, severe Post-op. Diagnosis: Same as pre-op diagnosis Operation: Cystoscopy with left ureteral stent removal Left ureteroscopy/pyeloscopy, laser lithotripsy Cystoscopy with Left ureteral stent placement Anesthesia: General Indications: Patient with left ureteral stone, 10 mm, with severe left hydronephrosis. The indications, risks, complications, alternatives and benefits were discussed. All questions were encouraged and answered. Patient is aware of risks/c omplications including but not limited to infection, bleeding, persistent pain, possible ureteral injury requiring additional surgical management. Details of Procedure: After obtaining the consent, patient was taken to OR suite and underwent general anesthesia. With the patient positioned in the lithotomy, the area of the genitalia was prepped and draped in usual sterile fashion. 21 F Cystoscope was used to access the urethra and bladder. A sensor tip guide wire was advanced through the left ureter into the kidney. Rigid ureteroscope was advanced along the wire until the stone was visualized. 200 micron laser fiber was used to fragment the stone. The ureter was examined and no furher stones were seen. At this point the cystoscope was advanced over the wire into the bladder. Now a 6 Fr x 24 cm JJ ureteral stent was advanced under direct visualization through the left ureteral orifice into the kidney. Patient was placed in supine position in the OR table. Anesthesia was reversed, patient was extubated and trasnferred awake and in stable conditions to recovery room. Specimens: Left ureteral stone Complications: None Findings: Left ureteral stent to be removed is 2-4 weeks in the office Notes: 6 Fr x 24 cm JJ ureteral stent - Left JAKE SHERIDAN MD May 20, 2025 18:00
[2025-05-20] MEDS: HYDROmorphone HCL 2 MG/ML VL/or syr IV PRN ×2 (18:04→21:47)
[2025-05-20] MEDS: ONDANSETRON HCL 4 MG/2 ML VIAL IV ONE (21:47)
[2025-05-21 01:00] VITALS: BP 107/68; PULSE 99; RESP 18; TEMP 97.6; O2SAT 93
[2025-05-21 05:00] VITALS: BP 92/51; PULSE 92; RESP 18; TEMP 97.8; O2SAT 92
[2025-05-21 05:44] LABS: Hematocrit 37.2 % (36.0-46.0); Hemoglobin 12.2 g/dL (12.2-16.2); Mean Corpuscular Hemoglobin 28.3 pg (28.0-32.0); Mean Corpuscular Volume 86.5 fL (80.0-100.0); Nucleated Red Blood Cells % 0.1 %
--- NOTE | 2025-05-21 05:54 | DVH ---
Exam: XY KUB ABDOMEN SINGLE VIEW Indication: stent placement Comparison: XY KUB ABDOMEN SINGLE VIEW on DOS: 05/20/25 Technique: 1 radiographic views of the abdomen. Findings: Nonobstructive bowel gas pattern noted. There is no definite evidence for pneumoperitoneum. No abnormal calcifications noted. Left internal ureteral stent appears grossly in satisfactory position. Impression: Nonobstructive bowel gas pattern noted.
[2025-05-21 06:21] LABS: Alanine Aminotransferase 17 U/L (7-40); Albumin 3.9 g/dL (3.2-4.8); Alkaline Phosphatase 80 U/L (46-116); Anion Gap 12 (5-15); BUN/Creatinine Ratio 11.0 (10.0-20.0); Blood Urea Nitrogen 10 mg/dL (9-23); Calcium 9.1 mg/dL (8.7-10.4); Carbon Dioxide 24 mmol/L (20-31); Chloride 106 mmol/L (98-107); Glucose 89 mg/dL (74-106); Potassium 3.7 mmol/L (3.5-5.1); Sodium 142 mmol/L (136-145); Total Protein 6.7 g/dL (5.7-8.2)
[2025-05-21 06:22] LABS: Bilirubin, Total 0.5 mg/dL (0.2-1.0)
--- NOTE | 2025-05-21 07:20 | ECG ---
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
[2025-05-21 08:00] VITALS: RESP 18; O2SAT 98
[2025-05-21 09:00] VITALS: BP 106/73; PULSE 92; RESP 17; TEMP 97.4; O2SAT 96
[2025-05-21] MEDS: HYDROcodone-ACET 10/325MG TAB PO PRN (09:43)
--- NOTE | 2025-05-21 10:15 | DVHDS2 ---
Discharge Summary Date of Admission May 19, 2025 at 16:05 Date of Discharge: May 21, 2025 Labs/Diagnostic Data: Laboratory Results Test 05/21/25 04:55 05/19/25 21:50 05/19/25 18:52 White Blood Count 6.7 10^3/uL (4.4-10.8) Red Blood Count 4.30 10^6/uL (4.0-5.20) Hemoglobin 12.2 g/dL (12.2-16.2) Hematocrit 37.2 % (36.0-46.0) Mean Corpuscular Volume 86.5 fL (80.0-100.0) Mean Corpuscular Hemoglobin 28.3 pg (28.0-32.0) Mean Corpuscular Hemoglobin Concent 32.7 g/dL (32.0-36.0) Red Cell Distribution Width 14.4 % (11.8-14.3) Platelet Count 280 10^3/uL (140-450) Mean Platelet Volume 8.1 fL (6.9-10.8) Neutrophils (%) (Auto) 63.5 % (37.0-80.0) Lymphocytes (%) (Auto) 26.0 % (10.0-50.0) Monocytes (%) (Auto) 8.7 % (0.0-12.0) Eosinophils (%) (Auto) 1.1 % (0.0-7.0) Basophils (%) (Auto) 0.7 % (0.0-2.0) Neutrophils # (Auto) 4.2 10 ^3/uL (1.6-8.6) Lymphocytes # (Auto) 1.7 10 ^3/uL (0.4-5.4) Monocytes # (Auto) 0.6 10 ^3/uL (0-1.3) Eosinophils # (Auto) 0.1 10 ^3/uL (0-0.8) Basophils # (Auto) 0 10 ^3/uL (0-0.2) Nucleated Red Blood Cells 0.1 % Sodium Level 142 mmol/L (136-145) Potassium Level 3.7 mmol/L (3.5-5.1) Chloride Level 106 mmol/L (98-107) Carbon Dioxide Level 24 mmol/L (20-31) Anion Gap 12 (5-15) Blood Urea Nitrogen 10 mg/dL (9-23) Creatinine 0.91 mg/dL (0.550-1.02) Glomerular Filtration Rate Calc 83 mL/min (>90) BUN/Creatinine Ratio 11.0 (10.0-20.0) Serum Glucose 89 mg/dL (74-106) Calcium Level 9.1 mg/dL (8.7-10.4) Total Bilirubin 0.5 mg/dL (0.2-1.0) Aspartate Amino Transferase (AST) 16 U/L (13-40) Alanine Aminotransferase (ALT) 17 U/L (7-40) Alkaline Phosphatase 80 U/L (46-116) Total Protein 6.7 g/dL (5.7-8.2) Albumin 3.9 g/dL (3.2-4.8) Urine Color Yellow (Yellow) Urine Clarity Turbid (Clear) Urine pH 5.5 (5.0-9.0) Urine Specific [place] 1.026 (1.001-1.035) Urine Protein Trace (Negative) Urine Ketones Negative (Negative) Urine Blood Trace /uL (Negative) Urine Nitrite Negative (Negative) Urine Bilirubin Negative (Negative) Urine Urobilinogen Normal mg/dL (Negative) Urine Leukocyte Esterase Trace /uL (Negative) Urine RBC 31 /hpf (0 - 4) Urine Microscopic WBC 14 /HPF (0-5) Urine Squamous Epithelial Cells Few /hpf (<5) Urine Calcium Oxalate Crystals Few (None Seen) Urine Bacteria Few /hpf (None Seen) Urine Mucus Few (None Seen) Urine Glucose Normal mg/dL (Normal) Prothrombin Time 10.3 sec (9.3-11.8) Prothrombin Time INR 0.97 (0.9-1.15) Activated Partial Thromboplast Time 30.5 SEC (24.5-34.5) Beta HCG, Quantitative 1.2 mIU/mL (1.5-4.2) Other Laboratory Tests 05/21/25 04:55 Brief Hx & Hospital Course: 39-year-old female with a past medical history of ASD and VSD status post repair in 2017 at [facility], hypertension, and left-sided kidney stones with ureteral stent placement on March 25, 2025, presented as planned admission into urology service for recurrent left nephrolithiasis, obstructive with hydronephrosis. she continues to have nausea and left flank pain. left flank pain, sharp in nature, accompanied by nausea, vomiting, and mild abdominal pain. She denies chest pain, shortness of breath, dysuria, or hematuria. She reports that the ureteral stent was removed on May 13, 2025, by urology. Chart review shows that the patient was recently discharged on May 15, 2025, for her hospitalization for complicated UTI. 05/20: plan for OR today. patient has been npo [place]. resume full liquid diet (cardiac) after procedure . 05/21: Patient is stable post surgery yesterday. Yesterday patient had lithotripsy and stent placement. Left side. This a.m. tolerating p.o., nausea control pain controlled. Stable for discharge cleared by Urology. ua diagnosis: recurrent left nephrolithiasis, history of failed stent placement, with current recurrent hydronephrosis. s/p cystoscopy/lithotripsy/stent placement 05/20/2025 Cystoscopy with left ureteral stent removal Left ureteroscopy/pyeloscopy, laser lithotripsy Cystoscopy with Left ureteral stent placement acute Left Flank Pain due to above recent Complicated Urinary Tract Infection resolved Hypertension Continue home medications if BP tolerates History of ASD VSD, s/p repair in 2017 No cardiac symptoms reported Nephrolithiasis History of ureteral stent plan: - for pain use 1st line Tylenol, second-line ibuprofen OTC, prescription [place] 10 of 2 4 times daily as needed only. - take Zofran ODT 4 mg up to 3 times daily as needed for nausea - macrobid 100mg 2x/day for 5 days - Continue other home medications - follow up with Urology in 2 weeks for stent removal. - follow up with PCP to review discharge. Condition at Discharge: Fair Final Diagnosis/Problems List recurrent left nephrolithiasis, history of failed stent placement, with current recurrent hydronephrosis. s/p cystoscopy/lithotripsy/stent placement 05/20/2025 Cystoscopy with left ureteral stent removal Left ureteroscopy/pyeloscopy, laser lithotripsy Cystoscopy with Left ureteral stent placement acute Left Flank Pain due to above recent Complicated Urinary Tract Infection resolved Hypertension Continue home medications if BP tolerates History of ASD VSD, s/p repair in 2017 No cardiac symptoms reported Nephrolithiasis History of ureteral stent Discharge Disposition: Home Discharge Instruct/Medications Scheduled Amlodipine Besylate (Amlodipine Besylate), Unknown Dose PO DAILY, (Reported) Naloxone HCl (Narcan), 4 MG NA [employer] Scheduled PRN Hydrocodone-Acetaminophen (Hydrocodone/Acetaminophen 5-325 mg), 1 TAB PO Q6HP PRN Ondansetron Odt 4MG Tab (Zofran Po), 4 MG PO Q6HP PRN Discharge Statement: "Patient was advised to return to the ER or call 911 if any headaches, dizziness, shortness of breath, chest pain, abdominal pain, bleeding, fevers, or worsening of medical condition. Patient was counseled about treatment plan, medications, possible side effects, patientverbalized understanding. All questions were answered to the best of my ability. This discharge took greater then 30 minutes in planning, reviewing documentation, counseling the patient, and discussing with other team members." ASSESSMENT ASSESSMENT Assessment Date of Service: May 21, 2025 Billing Provider: RONNI ALLAN MD Common Visit Codes: 31280-LPG/OBS DISCH DAY >30min RONNI ALLAN MD May 21, 2025 10:15
[2025-05-21] MEDS ORDERED: NITR-52 PO (10:29)
[2025-05-21] MEDS ORDERED: HYDR-4798 PO (10:29)
[2025-05-21 12:01] VITALS: TEMP 36.3
== END 2025-05-21 12:40 | disposition home or self-care (01) | DRG 661 ==
LOC: WEST WING 16:05
PROVIDERS: ADMIT Student in an Organized Health Care Education/Training Program; ATTEND Student in an Organized Health Care Education/Training Program
PROC: 0T778DZ Dilation of Left Ureter with Intraluminal Device, Via Natural or Artificial Opening Endoscopic (ICD-10-PCS; 2025-05-20)
PROC: 0TP98DZ Removal of Intraluminal Device from Ureter, Via Natural or Artificial Opening Endoscopic (ICD-10-PCS; 2025-05-20)
PROC: 0TF78ZZ Fragmentation in Left Ureter, Via Natural or Artificial Opening Endoscopic (ICD-10-PCS; principal; 2025-05-20 15:40)
DX: N13.2 Hydronephrosis with renal and ureteral calculous obstruction (principal); I10 Essential (primary) hypertension; Z87.442 Personal history of urinary calculi; Z88.0 Allergy status to penicillin; Z88.2 Allergy status to sulfonamides; Z82.49 Family history of ischemic heart disease and other diseases of the circulatory system; Z87.74 Personal history of (corrected) congenital malformations of heart and circulatory system
CPT/HCPCS: 36415; 71045; 74018; 76000; 80053; 81001; 82360; 84702; 85025; 85610; 85730; 86850; 86900; 86901; 93005; G0378; J1885; J2405; J2704

== ENCOUNTER 2025-05-29 06:59 | Inpatient (IN) | payer OTHER ==
[~2025-05-29] VITALS: Ht 160 cm; Wt 117.4 kg
[2025-05-29] VITALS (7 sets, daily range): BP systolic 105–114; BP diastolic 35–74; PULSE 71–89; RESP 16–20; TEMP 98.2–98.3; O2SAT 97–98
[~2025-05-29 06:59] MED LIST changes: +HYDR-4798 PO; +NITR-52 PO
--- NOTE | 2025-05-29 07:21 | ED.PDOC ---
General HPI Comments 39 y/o F, with PMHx of kidney stones presents to the ED for CC of left-sided flank pain. Patient states, she had a renal stent placed to her left kidney x9days ago and has been experiencing worsening flank pain since, placement. Patient reports, to have contacted Urologist () however, is unable to get a hold of provider. Patient denies nausea, vomiting, fever, chills, or hematuria. No other symptoms or modifying actors are present at this time. Chief Complaint: Urinary Time Seen by MD: 07:15 Reviewed notes: Nurses Notes, Medications, Allergies Allergies: Coded Allergies: Penicillins (Verified Allergy, Unknown, 07/16/24) Sulfa Antibiotics (Verified Allergy, Unknown, 07/16/24) Home Meds Active Scripts Nitrofurantoin (Nitrofurantoin) 100 Mg Cap, 1 CAP PO BID for 5 Days, #10 CAP 0 Refills Prov:RONNI ALLAN MD 05/21/25 Hydrocodone-Acetaminophen (Hydrocodone Bitartrate/AC 10-325 mg) 1 Tab Tab, 1 TAB PO QIDP PRN for 7 Days, #28 TAB 0 Refills Prov:RONNI ALLAN MD 05/21/25 Hydrocodone-Acetaminophen (Hydrocodone/Acetaminophen 5-325 mg) 1 Tab Tab, 1 TAB PO Q6HP PRN, #14 TAB Prov:BILL CASTELLANOS MD 05/18/25 Ondansetron Odt 4MG Tab (ZOFRAN PO) 4 Mg Tb, 4 MG PO Q6HP PRN, #20 TAB ODT TAB-DISSOLVE IN MOUTH, THEN SWALLOW Prov:BILL CASTELLANOS MD 05/18/25 Naloxone HCl (Narcan) 4 Mg/0.1 Ml Spr, 4 MG 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, #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 Prov:BILL CASTELLANOS MD 05/18/25 Reported Medications Amlodipine Besylate (Amlodipine Besylate) 2.5 Mg Tab, PO DAILY, TAB 05/08/25 Information Source: Patient Mode of Arrival: Ambulatory Severity: Moderate Timing: Days Duration: Since onset Prehospital treatment: None Onset: Other (following stent placement) History of: Kidney stone Location: (L)Flank Modifying factors: None associated signs and symptoms: Flank Pain Past Medical History PAST MEDICAL HISTORY: Kidney Stones Surgical History: Denies all surgeries 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 Hx Family History Family History: Reviewed,noncontributory to illness Social History Smoker: Non-Smoker Alcohol: Denies ETOH Use Drugs: Denies Drug Use Lives In: Home Constitutional: denies: chills, diaphoresis, fatigue, fever, malaise, sweats, weakness, others EENTM: denies: blurred vision, double vision, ear bleeding, ear discharge, ear drainage, ear pain, ear ringing, eye pain, eye redness, hearing loss, mouth pain, mouth swelling, nasal discharge, nose bleeding, nose congestion, nose pain, photophobia, tearing, throat pain, throat swelling, voice changes, others Respiratory: denies: cough, hemoptysis, orthopnea, SOB at rest, shortness of breath, SOB with excertion, stridor, wheezing, others Cardiovascular: denies: chest pain, dizzy spells, diaphoresis, Dyspnea on exertion, edema, irregular heart beat, left arm pain, lightheadedness, palpitations, PND, syncope, others Gastrointestinal: denies: abdomen distended, abdominal pain, blood streaked bowels, constipated, diarrhea, dysphagia, difficulty swallowing, hematemesis, melena, nausea, poor appetite, poor fluid intake, rectal bleeding, rectal pain, vomiting, others Genitourinary: denies: abnormal vagina bleeding, burning, dyspareunia, dysuria, flank pain, frequency, hematuria, incontinence, pain, , vagina discharge, urgency, others Neurological: denies: dizziness, fainting, headache, left sided numbness, left sided weakness, numbness, paresthesia, pre-existing deficit, right sided numbness, right sided weakness, seizure, speech problems, tingling, tremors, weakness, others Musculoskeletal: denies: back pain, gout, joint pain, joint swelling, muscle pain, muscle stiffness, neck pain, others Integumetry: denies: bruises, change in color, change in hair/nails, dryness, laceration, lesions, lumps, rash, wounds, others Allergic/Immunocompromised: denies: Difficulty Healing, Frequent Infections, Hives, Itching, others Hematologic/Lymphatic: denies: anemia, blood clots, easy bleeding, easy bruising, swollen glands, others Endocrine: denies: excessive hunger, excessive sweating, excessive thirst, excessive urination, flushing, intolerance to cold, intolerance to heat, unexplained weight gain, unexplained weight loss, others Psychiatric: denies: anxiety, bipolar disorder, depression, hopeless, panic disorder, schizophrenia, sleepless, suicidal, others All Other Systems: Reviewed and Negative Physical Exam General Appearance: No Apparent Distress, Normal HEENT: Normal ENT Inspection, Pharynx Normal Neck: Full Range of Motion, Non-Tender, Normal, Normal Inspection Respiratory: Chest Non-Tender, Lungs Clear, No Accessory Muscle Use, No Respiratory Distress, Normal Breath Sounds Cardiovascular: No Edema, No Murmur, No Gallop, Normal Peripheral Pulses, Regular Rate/Rhythm Breast Exam: Deferred Gastrointestinal: No Organomegaly, Non Tender, No Pulsatile Mass, Normal Bowel Sounds, Soft Genitalia: Deferred Pelvic: Deferred Rectal: Deferred Extremities: No calf tenderness, Normal capillary refill, Normal inspection, Normal range of motion, Non-tender, No pedal edema Musculoskeletal : Apperance: Normal Neurologic: Alert, edge grinder machine II-XII nml as Tested, No Motor Deficits, Normal Affect, Normal Mood, No Sensory Deficits Cerebellar Function: Normal Reflexes: Normal Skin: Dry, Normal Color, Warm Lymphatic: No Adenopathy Was a procedure done? Was a procedure done?: No Differential Diagnosis Kidney stone (Female): Pyelonephritis, Strain, Urolithiasis X-Ray, Labs, Meds, VS Vital Signs Date Time Temp Pulse Resp B/P (MAP) Pulse Ox O2 Delivery O2 Flow Rate FiO2 05/29/25 09:03 99.0 82 15 108/77 (87) 99 99.0 05/29/25 09:02 82 15 108/77 05/29/25 08:09 91 17 114/74 05/29/25 07:52 99.0 91 16 114/74 (87) 99 99.0 05/29/25 07:52 91 16 99 Room Air 05/29/25 07:00 96.8 94 18 118/83 96 96.8 Lab Test 05/29/25 07:43 05/29/25 07:30 Range/Units White Blood Count 6.9 4.4-10.8 10^3/uL Red Blood Count 4.48 4.0-5.20 10^6/uL Hemoglobin 12.6 12.2-16.2 g/dL Hematocrit 38.5 36.0-46.0 % Mean Corpuscular Volume 86.0 80.0-100.0 fL Mean Corpuscular Hemoglobin 28.0 28.0-32.0 pg Mean Corpuscular Hemoglobin Concent 32.6 32.0-36.0 g/dL Red Cell Distribution Width 14.7 H 11.8-14.3 % Platelet Count 322 140-450 10^3/uL Mean Platelet Volume 8.1 6.9-10.8 fL Neutrophils (%) (Auto) 57.3 37.0-80.0 % Lymphocytes (%) (Auto) 30.1 10.0-50.0 % Monocytes (%) (Auto) 9.5 0.0-12.0 % Eosinophils (%) (Auto) 2.0 0.0-7.0 % Basophils (%) (Auto) 1.1 0.0-2.0 % Neutrophils # (Auto) 4.0 1.6-8.6 10 ^3/uL Lymphocytes # (Auto) 2.1 0.4-5.4 10 ^3/uL Monocytes # (Auto) 0.7 0-1.3 10 ^3/uL Eosinophils # (Auto) 0.1 0-0.8 10 ^3/uL Basophils # (Auto) 0.1 0-0.2 10 ^3/uL Nucleated Red Blood Cells 0.0 % Sodium Level 142 136-145 mmol/L Potassium Level 4.2 3.5-5.1 mmol/L Chloride Level 107 98-107 mmol/L Carbon Dioxide Level 26 20-31 mmol/L Anion Gap 9 5-15 Blood Urea Nitrogen 16 9-23 mg/dL Creatinine 1.16 H 0.550-1.02 mg/dL Glomerular Filtration Rate Calc 62 >90 mL/min BUN/Creatinine Ratio 13.8 10.0-20.0 Serum Glucose 98 74-106 mg/dL Calcium Level 9.6 8.7-10.4 mg/dL Urine Color Yellow Yellow Urine Clarity Ex.turbid Clear Urine pH 6.0 5.0-9.0 Urine Specific [place] 1.026 1.001-1.035 Urine Protein 2+ H Negative Urine Ketones Negative Negative Urine Blood 3+ H Negative /uL Urine Nitrite Negative Negative Urine Bilirubin Negative Negative Urine Urobilinogen Normal Negative mg/dL Urine Leukocyte Esterase 2+ Negative /uL Urine RBC 5383 0 - 4 /hpf Urine Microscopic WBC 113 H 0-5 /HPF Urine Squamous Epithelial Cells Few <5 /hpf Urine Bacteria Few H None Seen /hpf Urine Glucose Normal Normal mg/dL Current Medications Medications (Trade) Dose Ordered Sig/Kelly Route Start Time Stop Time Status Last Admin Sodium Chloride 1,000 ml @ 1,000 mls/hr Q1H ONCE IV 05/29/25 07:45 05/29/25 08:44 DC 05/29/25 08:08 Morphine Sulfate 4 mg ONCE ONCE IV 05/29/25 07:45 05/29/25 07:46 DC 05/29/25 08:09 Ondansetron HCl (Zofran) 4 mg ONCE ONCE IV 05/29/25 07:45 05/29/25 07:46 DC 05/29/25 08:10 Time of 1ST Reevaluation: 07:45 Reevaluation 1ST: Unchanged Patient Education/Counseling: Diagnosis, Treatment Family Education/Counseling: No Family Present SEPSIS Sepsis Screen Date sepsis recognized/suspect: May 29, 2025 Time Sepsis recognized/suspect: 704 Recent Procedure: Yes (LEFT STENT) On Antibiotic Therapy: No Respiratory Rate >20: No Heart Rate >90: No Temp<36 C (96.8 F) or >38.3 C: No SBP <90 or MAP <65 mmHG: No New Acute Mental Status Change: No Is the patient on CPAP, BIPAP,: No Physician Orders * Urology Consult (05/29/25 07:34) Vital Signs Date Time Temp Pulse Resp B/P (MAP) Pulse Ox O2 Delivery O2 Flow Rate FiO2 05/29/25 09:03 99.0 82 15 108/77 (87) 99 99.0 05/29/25 09:02 82 15 108/77 05/29/25 08:09 91 17 114/74 05/29/25 07:52 99.0 91 16 114/74 (87) 99 99.0 05/29/25 07:52 91 16 99 Room Air 05/29/25 07:00 96.8 94 18 118/83 96 96.8 Laboratory Tests Test 05/29/25 07:43 White Blood Count 6.9 10^3/uL (4.4-10.8) Medications Medications Dose Ordered Sig/Kelly Route Start Time Stop Time Status Last Admin Dose Admin Morphine Sulfate 4 mg ONCE ONCE IV 05/29/25 07:45 05/29/25 07:46 DC 05/29/25 08:09 Ondansetron HCl 4 mg ONCE ONCE IV 05/29/25 07:45 05/29/25 07:46 DC 05/29/25 08:10 Sodium Chloride 1,000 ml @ 1,000 mls/hr Q1H ONCE IV 05/29/25 07:45 05/29/25 08:44 DC 05/29/25 08:08 Departure 1 Departure Time of Disposition: 09:34 (Patient with a recent procedure by Dr. Victoria. Patient with intractable pain. We will admit patient for further workup and expert consultation) Impression: Primary Impression: Intractable abdominal pain Additional Impression: Mechanical complication of ureteral stent Disposition: ADMITTED INPATIENT Admit to: Med Surg Condition: Serious Critical Care Note Critical Care Time?: No Stability Stability form required: No Heart Score Heart Score: Heart Score Response (Comments) Value History N/A 0 EKG N/A 0 Age N/A 0 Risk Factors N/A 0 Troponin N/A 0 Total 0 I personally scribed for IRINA MONTES DE OCA MD ([email or web address]) on 05/29/25 at 07:21. Electronically submitted by Christin Michel ([email or web address]). I personally scribed for IRINA MONTES D EOCA MD ([email or web address]) on 05/29/25 at 07:37. Electronically submitted by Christin Michel ([email or web address]). IRINA MONTES DE OCA MD May 29, 2025 07:21
[2025-05-29 07:56] LABS: Hematocrit 38.5 % (36.0-46.0); Hemoglobin 12.6 g/dL (12.2-16.2); Mean Corpuscular Hemoglobin 28.0 pg (28.0-32.0); Mean Corpuscular Volume 86.0 fL (80.0-100.0); Nucleated Red Blood Cells % 0.0 %
[2025-05-29 08:02] LABS: Chloride 107 mmol/L (98-107); Potassium 4.2 mmol/L (3.5-5.1); Sodium 142 mmol/L (136-145)
[2025-05-29 08:03] LABS: Anion Gap 9 (5-15); Calcium 9.6 mg/dL (8.7-10.4); Carbon Dioxide 26 mmol/L (20-31)
[2025-05-29 08:08] LABS: BUN/Creatinine Ratio 13.8 (10.0-20.0); Blood Urea Nitrogen 16 mg/dL (9-23); Glucose 98 mg/dL (74-106)
[2025-05-29] MEDS: SODIUM CHLORIDE 0.9% 1,000 ML IV ONE (08:08)
[2025-05-29] MEDS: MORPHINE SULFATE 4 MG/ML SYR/VIAL IV ONE (08:09)
[2025-05-29] MEDS: ONDANSETRON HCL 4 MG/2 ML VIAL IV ONE (08:10)
[2025-05-29 08:24] LABS: Urine Protein, UAD 2+ (Negative)
[2025-05-29] MEDS ORDERED: ACETAMINOPHEN 325 MG TAB PO PRN (10:45)
--- NOTE | 2025-05-29 11:13 | DVHHP2 ---
History of Present Illness History of Present Illness This is a 39-year-old female with a medical history of repaired ASD and VSD, hypertension, and recurrent nephrolithiasis. She recently had two urologic procedures: a left ureteral stent placed in March for obstructing nephrolithiasis, and a repeat left ureteral stent placement on May 20 for a 10-mm stone associated with severe left hydronephrosis. She was advised to have the stent removed within [address] Echols (urology), but has been unable to reach him. Since the procedure, she reports persistent abdominal and flank pain on the left side, prompting todays visit for evaluation and assistance with stent management. She denies fever, chills, dysuria, or urinary retention. Past Medical History Hypertension; recurrent nephrolithiasis; congenital heart disease s/p ASD/VSD repair; history of ureteral stent placements. Past Surgical History ASD/VSD repair 2; left ureteral stent placements in March and May 2025. Medications at Home Amlodipine, hydrocodoneacetaminophen, nitrofurantoin. Allergies Penicillin; sulfa medications. Social History Denies tobacco, alcohol, or drug use. Lives at home. ROS Negative except as noted in HPI. Review of Systems Allergies: Coded Allergies: Penicillins (Verified Allergy, Unknown, 07/16/24) Sulfa Antibiotics (Verified Allergy, Unknown, 07/16/24) Medications Current Medications Medications Dose Ordered Sig/Kelly Route Start Time Stop Time Status Last Admin Dose Admin Sodium Chloride 1,000 ml @ 60 mls/hr [id number] IV 05/29/25 10:45 Acetaminophen 650 mg Q6HP PRN PO 05/29/25 10:45 Acetaminophen/ Hydrocodone Bitart 1 tab Q4HP PRN PO 05/29/25 10:45 Morphine Sulfate 2 mg Q4HPRN PRN IV 05/29/25 11:00 Ceftriaxone Sodium 50 ml @ 100 mls/hr DAILY@09 IV 05/29/25 10:45 Exam Vital Signs Vital Signs Date Time Temp Pulse Resp B/P (MAP) Pulse Ox O2 Delivery O2 Flow Rate FiO2 05/29/25 09:03 99.0 82 15 108/77 (87) 99 99.0 05/29/25 07:52 Room Air Exam General: Alert, nontoxic. CV: Regular rate and rhythm. Lungs: Clear to auscultation. Abdomen: Soft, tender on the left side without rebound or guarding. : No CVA tenderness reported on exam. Neuro: Nonfocal. Extremities: No edema. Labs/Xrays Labs Test 05/29/25 07:43 05/29/25 07:30 Range/Units White Blood Count 6.9 4.4-10.8 10^3/uL Red Blood Count 4.48 4.0-5.20 10^6/uL Hemoglobin 12.6 12.2-16.2 g/dL Hematocrit 38.5 36.0-46.0 % Mean Corpuscular Volume 86.0 80.0-100.0 fL Mean Corpuscular Hemoglobin 28.0 28.0-32.0 pg Mean Corpuscular Hemoglobin Concent 32.6 32.0-36.0 g/dL Red Cell Distribution Width 14.7 H 11.8-14.3 % Platelet Count 322 140-450 10^3/uL Mean Platelet Volume 8.1 6.9-10.8 fL Neutrophils (%) (Auto) 57.3 37.0-80.0 % Lymphocytes (%) (Auto) 30.1 10.0-50.0 % Monocytes (%) (Auto) 9.5 0.0-12.0 % Eosinophils (%) (Auto) 2.0 0.0-7.0 % Basophils (%) (Auto) 1.1 0.0-2.0 % Neutrophils # (Auto) 4.0 1.6-8.6 10 ^3/uL Lymphocytes # (Auto) 2.1 0.4-5.4 10 ^3/uL Monocytes # (Auto) 0.7 0-1.3 10 ^3/uL Eosinophils # (Auto) 0.1 0-0.8 10 ^3/uL Basophils # (Auto) 0.1 0-0.2 10 ^3/uL Nucleated Red Blood Cells 0.0 % Sodium Level 142 136-145 mmol/L Potassium Level 4.2 3.5-5.1 mmol/L Chloride Level 107 98-107 mmol/L Carbon Dioxide Level 26 20-31 mmol/L Anion Gap 9 5-15 Blood Urea Nitrogen 16 9-23 mg/dL Creatinine 1.16 H 0.550-1.02 mg/dL Glomerular Filtration Rate Calc 62 >90 mL/min BUN/Creatinine Ratio 13.8 10.0-20.0 Serum Glucose 98 74-106 mg/dL Calcium Level 9.6 8.7-10.4 mg/dL Urine Color Yellow Yellow Urine Clarity Ex.turbid Clear Urine pH 6.0 5.0-9.0 Urine Specific [place] 1.026 1.001-1.035 Urine Protein 2+ H Negative Urine Ketones Negative Negative Urine Blood 3+ H Negative /uL Urine Nitrite Negative Negative Urine Bilirubin Negative Negative Urine Urobilinogen Normal Negative mg/dL Urine Leukocyte Esterase 2+ Negative /uL Urine RBC 5383 0 - 4 /hpf Urine Microscopic WBC 113 H 0-5 /HPF Urine Squamous Epithelial Cells Few <5 /hpf Urine Bacteria Few H None Seen /hpf Urine Glucose Normal Normal mg/dL SEPSIS Sepsis Screen Date sepsis recognized/suspect: May 29, 2025 Time Sepsis recognized/suspect: 704 Recent Procedure: Yes (LEFT STENT) On Antibiotic Therapy: No Respiratory Rate >20: No Heart Rate >90: No Temp<36 C (96.8 F) or >38.3 C: No SBP <90 or MAP <65 mmHG: No New Acute Mental Status Change: No Is the patient on CPAP, BIPAP,: No Physician Orders * Urology Consult (05/29/25 07:34) Admit (05/29/25 10:38) Code Status (05/29/25 10:38) Vital Signs .PER UNIT PROTOCOL (05/29/25 10:38) Review Orders With Adm. (05/29/25 10:38) Npo (Nothing By Mouth) Diet (05/29/25 Lunch) Sodium Chloride 0.9% (05/29/25 10:45) Acetaminophen Tablet (Tylenol Tablet) (05/29/25 10:45) Notify Md Of Changes From Base (05/29/25 10:38) Advance Directive (05/29/25 10:38) Patient Condition (05/29/25 10:38) Allergies (05/29/25 10:38) Hydrocodone-Acet 5/325mg Tab ([place] 5/32 (05/29/25 10:45) Oxygen By Nasal Cannula (05/29/25 10:38) Stat Ekg For Chest Pain (05/29/25 10:38) Notify Md Of Changes From Base (05/29/25 10:38) Oncology Rep For 24 Hours (05/29/25 10:38) Emergency Dysrhythmia Protocol (05/29/25 10:38) Rhythm Strips Once Every Shift (05/29/25 10:38) Ceftriaxone 1gm/50ml (Rocephin) (05/29/25 10:45) Morphine Sulfate Injection (05/29/25 11:00) Vital Signs Date Time Temp Pulse Resp B/P (MAP) Pulse Ox O2 Delivery O2 Flow Rate FiO2 05/29/25 09:03 99.0 82 15 108/77 (87) 99 99.0 05/29/25 09:02 82 15 108/77 05/29/25 08:09 91 17 114/74 05/29/25 07:52 99.0 91 16 114/74 (87) 99 99.0 05/29/25 07:52 91 16 99 Room Air 05/29/25 07:00 96.8 94 18 118/83 96 96.8 Laboratory Tests Test 05/29/25 07:43 White Blood Count 6.9 10^3/uL (4.4-10.8) Medications Medications Dose Ordered Sig/Kelly Route Start Time Stop Time Status Last Admin Dose Admin Morphine Sulfate 4 mg ONCE ONCE IV 05/29/25 07:45 05/29/25 07:46 DC 05/29/25 08:09 4 MG Ondansetron HCl 4 mg ONCE ONCE IV 05/29/25 07:45 05/29/25 07:46 DC 05/29/25 08:10 4 MG Sodium Chloride 1,000 ml @ 1,000 mls/hr Q1H ONCE IV 05/29/25 07:45 05/29/25 08:44 DC 05/29/25 08:08 1,000 MLS/HR Assessment/Plan Assessment/Plan # Acute intractable flank pain Likely secondary to retained left ureteral stent in the setting of recent hydronephrosis and recurrent nephrolithiasis. Will evaluate for obstruction or stent-related complication. Kidney ultrasound ordered to assess hydronephrosis and stent positioning. Continue IV fluids, analgesia as needed. Maintain NPO status if concern arises for urgent urologic intervention. # Retained ureteral stent Placed for a 10-mm obstructing stone with severe hydronephrosis on 05/20; removal planned in [address] Echols (urology) consult already placed for evaluation and potential removal. Ceftriaxone IV # Nephrolithiasis Recurrent disease with prior obstructing stone. Monitor renal function and manage pain. Encourage hydration. Adjust antibiotics based on culture if indicated. Follow urology recommendations. # Mild acute kidney injury Creatinine 1.16 from presumed baseline slightly lower; likely prerenal from pain and decreased intake vs stent obstruction. IV fluids initiated. Trend BMP. # Hypertension Case discussed with Dr Lyman Plan discussed with: Patient, Other (rn) My Orders Orders - VIRGIL HAM Procedure Category Date Status Time Admit ADMIT 05/29/25 Transmitted 10:38 Code Status CODE 05/29/25 Transmitted 10:38 Vital Signs [facility] 05/29/25 In Process 10:38 Review Orders With [facility] 05/29/25 In Process Adm.Md 10:38 Npo (Nothing By DIET 05/29/25 Transmitted Mouth) Diet Lunch Sodium Chloride 0.9% [facility] 05/29/25 In Process 10:45 Acetaminophen Tablet [facility] 05/29/25 In Process (Tylenol Tablet) 10:45 Notify Md Of Changes [facility] 05/29/25 In Process From Base 10:38 Advance Directive [facility] 05/29/25 In Process 10:38 Patient Condition ORDERS 05/29/25 Transmitted 10:38 Allergies [facility] 05/29/25 In Process 10:38 Hydrocodone-Acet PHA 05/29/25 In Process 5/325mg Tab ([place] 10:45 Oxygen By Nasal RT 05/29/25 Transmitted Cannula 10:38 Stat Ekg For Chest [facility] 05/29/25 In Process Pain 10:38 Notify Md Of Changes [facility] 05/29/25 In Process From Base 10:38 Oncology Rep For [facility] 05/29/25 In Process 24 Hours 10:38 Emergency Dysrhythmia [facility] 05/29/25 In Process Protocol 10:38 Rhythm Strips Once [facility] 05/29/25 In Process Every Shift 10:38 Ceftriaxone 1gm/50ml [facility] 05/29/25 In Process (Rocephin) 10:45 Morphine Sulfate [facility] 05/29/25 In Process Injection 11:00 Date of Service: May 29, 2025 Billing Provider: EKATERINA LYMAN MD Common Visit Codes: [id number] INP/OBS CARE (HIGH) Secondary Visit Codes: [id number] CARE PLAN 30 MINUTES VIRGIL HAM May 29, 2025 11:13
[2025-05-29] MEDS: SODIUM CHLORIDE 0.9% 1,000 ML IV SCH (11:18)
--- NOTE | 2025-05-29 12:42 | DVH ---
CLINICAL HISTORY: sp utereral stent, left flank pain TECHNIQUE: Complete ultrasound exam of the kidneys and bladder was performed. COMPARISON: US RENAL AND BLADDER on DOS: 01/31/25 FINDINGS: The right kidney has normal echogenicity and measures 10.9 cm. There is no focal parenchymal abnormality or evidence for stone. There is no hydronephrosis. The left kidney has normal echogenicity and measures 9.1 cm. There is no focal parenchymal abnormality or evidence for stone. There is no hydronephrosis. There is a probable stent noted within the left renal pelvis. The bladder is grossly unremarkable. There is a stent within the bladder. IMPRESSION: Left ureteral stent. No hydronephrosis.
[2025-05-29] MEDS: MORPHINE SULFATE 4 MG/ML SYR/VIAL IV PRN (12:56)
--- NOTE | 2025-05-29 13:26 | DVHINCON2 ---
Date of service: May 29, 2025 Referring Physician Hospitalist Reason for Consultation Left ureteral stent in-situ Intractable abdominal pain History of Present Illness Patient is known to urology service. She underwent left ureteroscope epic laser lithotripsy of a 10 mm distal ureteral calculus with stent placement on 05/20/2025. She is currently scheduled to undergo cystoscopy with stent removal in the office setting on 06/06 25. She is admitted to [facility] for intractable pain. Renal ultrasound is unremarkable. I will obtain a CT scan for confirmation of no residual stone fragments. If CT scan is negative for stones, then I will proceed with cystoscopy with stent removal during her hospitalization. Past Medical History Kidney stone Past Surgical History 05/20/2025 left ureteral laser lithotripsy and stent placement Family History: FH: myocardial infarction grandfather Allergies: Coded Allergies: Penicillins (Verified Allergy, Unknown, 07/16/24) Sulfa Antibiotics (Verified Allergy, Unknown, 07/16/24) Home Meds Active Scripts Nitrofurantoin (Nitrofurantoin) 100 Mg Cap, 1 CAP PO BID for 5 Days, #10 CAP 0 Refills Prov:RONNI ALLAN MD 05/21/25 Hydrocodone-Acetaminophen (Hydrocodone Bitartrate/AC 10-325 mg) 1 Tab Tab, 1 TAB PO QIDP PRN for 7 Days, #28 TAB 0 Refills Prov:RONNI ALLAN MD 05/21/25 Hydrocodone-Acetaminophen (Hydrocodone/Acetaminophen 5-325 mg) 1 Tab Tab, 1 TAB PO Q6HP PRN, #14 TAB Prov:BILL CASTELLANOS MD 05/18/25 Ondansetron Odt 4MG Tab (ZOFRAN PO) 4 Mg Tb, 4 MG PO Q6HP PRN, #20 TAB ODT TAB-DISSOLVE IN MOUTH, THEN SWALLOW Prov:BILL CASTELLANOS MD 05/18/25 Naloxone HCl (Narcan) 4 Mg/0.1 Ml Spr, 4 MG NA [employer]CHNICIAN POULTRY, #2 SPRAY Prov:BILL CASTELLANOS MD 05/18/25 Reported Medications Amlodipine Besylate (Amlodipine Besylate) 2.5 Mg Tab, PO DAILY, TAB 05/08/25 Current Medications Current Medications Medications (Trade) Dose Ordered Sig/Kelly Route PRN Reason Start Time Stop Time Status Last Admin Sodium Chloride 1,000 ml @ 60 mls/hr [id number] IV 05/29/25 10:45 05/29/25 11:18 Acetaminophen (Tylenol Tablet) 650 mg Q6HP PRN PO PAIN SCALE 1-3 OR TEMP>100.4 05/29/25 10:45 Acetaminophen/ Hydrocodone Bitart ([place] 5/325MG Tab) 1 tab Q4HP PRN PO MODERATE PAIN (4-6 PAIN SCALE) 05/29/25 10:45 Morphine Sulfate 2 mg Q4HPRN PRN IV SEVERE PAIN (7-10 PAIN SCALE) 05/29/25 11:00 05/29/25 12:56 Ceftriaxone Sodium 50 ml @ 100 mls/hr DAILY@09 IV 05/29/25 10:45 05/29/25 12:50 Review of Systems Intractable pain Vital Signs Vital Signs Date Time Temp Pulse Resp B/P (MAP) Pulse Ox O2 Delivery O2 Flow Rate FiO2 05/29/25 12:56 82 19 142/82 05/29/25 11:41 98.6 99 98.6 05/29/25 07:52 Room Air Labs/Diagnostic Data Labs Test 05/29/25 07:43 05/29/25 07:30 Range/Units White Blood Count 6.9 4.4-10.8 10^3/uL Red Blood Count 4.48 4.0-5.20 10^6/uL Hemoglobin 12.6 12.2-16.2 g/dL Hematocrit 38.5 36.0-46.0 % Mean Corpuscular Volume 86.0 80.0-100.0 fL Mean Corpuscular Hemoglobin 28.0 28.0-32.0 pg Mean Corpuscular Hemoglobin Concent 32.6 32.0-36.0 g/dL Red Cell Distribution Width 14.7 H 11.8-14.3 % Platelet Count 322 140-450 10^3/uL Mean Platelet Volume 8.1 6.9-10.8 fL Neutrophils (%) (Auto) 57.3 37.0-80.0 % Lymphocytes (%) (Auto) 30.1 10.0-50.0 % Monocytes (%) (Auto) 9.5 0.0-12.0 % Eosinophils (%) (Auto) 2.0 0.0-7.0 % Basophils (%) (Auto) 1.1 0.0-2.0 % Neutrophils # (Auto) 4.0 1.6-8.6 10 ^3/uL Lymphocytes # (Auto) 2.1 0.4-5.4 10 ^3/uL Monocytes # (Auto) 0.7 0-1.3 10 ^3/uL Eosinophils # (Auto) 0.1 0-0.8 10 ^3/uL Basophils # (Auto) 0.1 0-0.2 10 ^3/uL Nucleated Red Blood Cells 0.0 % Sodium Level 142 136-145 mmol/L Potassium Level 4.2 3.5-5.1 mmol/L Chloride Level 107 98-107 mmol/L Carbon Dioxide Level 26 20-31 mmol/L Anion Gap 9 5-15 Blood Urea Nitrogen 16 9-23 mg/dL Creatinine 1.16 H 0.550-1.02 mg/dL Glomerular Filtration Rate Calc 62 >90 mL/min BUN/Creatinine Ratio 13.8 10.0-20.0 Serum Glucose 98 74-106 mg/dL Calcium Level 9.6 8.7-10.4 mg/dL Urine Color Yellow Yellow Urine Clarity Ex.turbid Clear Urine pH 6.0 5.0-9.0 Urine Specific [place] 1.026 1.001-1.035 Urine Protein 2+ H Negative Urine Ketones Negative Negative Urine Blood 3+ H Negative /uL Urine Nitrite Negative Negative Urine Bilirubin Negative Negative Urine Urobilinogen Normal Negative mg/dL Urine Leukocyte Esterase 2+ Negative /uL Urine RBC 5383 0 - 4 /hpf Urine Microscopic WBC 113 H 0-5 /HPF Urine Squamous Epithelial Cells Few <5 /hpf Urine Bacteria Few H None Seen /hpf Urine Glucose Normal Normal mg/dL Assessment Left ureteral stent in-situ Plan/Recommendation CT scan abdomen and pelvis noncontrast study Cystoscopy with stent removal if no stones residual found Plan discussed with: Patient, Other JAKE SHERIDAN MD May 29, 2025 13:26
--- NOTE | 2025-05-29 14:19 | DVH ---
EXAM: CT CT AB PEL WO CON-NO ORAL OR IV History: left ureteral stent Comparison Study: CT CT AB PEL WO CON-NO ORAL OR IV on DOS: 05/17/25, CT CT AB PEL WO CON-NO ORAL OR IV on DOS: 05/13/25 TECHNIQUE: Multidetector CT of the abdomen AND PELVIS without IV contrast. Axial, coronal and sagittal multiplanar reformats were obtained from the axial data set by the technologist. Radiation Dose Information: CT Dose: CTDI volume is 27.25 mGy. Dose-length product is 3.92 mGy*cm FINDINGS: Unchanged 1.2 cm partially calcified left inferolateral lower lobe solid nodule. Right middle lobe atelectasis. Partially visualized heart is unremarkable. Liver, spleen, gallbladder, pancreas and right adrenal glands unremarkable. 3.7 cm left adrenal nodule measuring up to 15 cm abutting the Adjacent Pancreatic tail. Splenule is noted adjacent to the spleen. Nonobstructing right renal calculi measuring up to 0.7 cm. The right kidney and ureter are otherwise unremarkable. Left-sided double-J stent with the proximal end of the left renal pelvis and the distal end within the urinary bladder. No left-sided hydro nephrosis. There is minimal fat stranding adjacent to the left renal pelvis and ureter which may be associated with the double-J stent. Urinary bladder is unremarkable. Uterus and adnexa are unremarkable. Stomach is unremarkable. Small bowel loops are unremarkable. Appendix is unremarkable. Large Amount of fecal material within the ascending colon with small to moderate amount of fecal material within the remainder of the colon. No evidence of intraperitoneal free air or free fluid. No evidence of aortic aneurysm. No significant lymphadenopathy. Tiny fat containing umbilical hernia. Partially visualized bilateral breast implants. Soft tissues unremarkable. No evidence of acute osseous abnormalities. IMPRESSION: Left-sided double-J stent with the proximal end of the left renal pelvis and distal end within the urinary bladder. No [place] nephrosis bilaterally. Minimal fat stranding adjacent to the left renal pelvis and left ureter which may be associated with the double-J stent. Infectious process can not be completely excluded. Nonobstructing right renal calculi. Indeterminate 3.7 cm left adrenal nodule. Adrenal protocol CT / MRI should be considered for further evaluation.
[2025-05-29] MEDS: HYDROcodone-ACET 5/325MG TAB PO PRN (14:22)
[2025-05-30] VITALS (8 sets, daily range): BP systolic 98–156; BP diastolic 53–91; PULSE 71–98; RESP 16–20; TEMP 37.2; O2SAT 94–100
[2025-05-30 06:15] LABS: Hematocrit 37.4 % (36.0-46.0); Hemoglobin 12.5 g/dL (12.2-16.2); Mean Corpuscular Hemoglobin 29.2 pg (28.0-32.0); Mean Corpuscular Volume 86.9 fL (80.0-100.0); Nucleated Red Blood Cells % 0.1 %
[2025-05-30 06:32] LABS: Alanine Aminotransferase 33 U/L (7-40); Albumin 4.1 g/dL (3.2-4.8); Alkaline Phosphatase 80 U/L (46-116); Anion Gap 11 (5-15); BUN/Creatinine Ratio 20.2 (10.0-20.0); Bilirubin, Total 0.4 mg/dL (0.2-1.0); Blood Urea Nitrogen 19 mg/dL (9-23); Calcium 9.0 mg/dL (8.7-10.4); Carbon Dioxide 24 mmol/L (20-31); Chloride 106 mmol/L (98-107); Glucose 96 mg/dL (74-106); Potassium 4.0 mmol/L (3.5-5.1); Sodium 141 mmol/L (136-145); Total Protein 6.9 g/dL (5.7-8.2)
[2025-05-30 06:36] LABS: INR 0.98 (0.9-1.15); Partial Thromboplastin Time 31.2 SEC (24.5-34.5); Prothrombin Time 10.4 sec (9.3-11.8)
--- NOTE | 2025-05-30 08:26 | DVHPN2 ---
Progress Note - Dictate Date Seen: May 30, 2025 Has the PT tested + for MRSA If YES, has PT been informed?: No Medical Necessity Reason Pt with a Central, PICC or Fol: No Medical Necessity Reason Patient has stent intolerance Subjective Patient states she is tired of her stone issue with stents and wants to have it removed. She was informed of small 4-5 mm right renal stone and was offered to have it treated with ESWL at same time removing her left ureteral stent. She does not want to undergo right stone treatment at this time. vital signs Vital Sign Date Time Temp Pulse Resp B/P (MAP) Pulse Ox O2 Delivery O2 Flow Rate FiO2 05/30/25 06:15 84 16 116/82 05/30/25 05:00 97.9 98 97.9 05/29/25 22:07 Room Air* 0 21 Total Intake and Output 05/29/25 05/29/25 05/30/25 15:00 23:00 07:00 Intake Total 0 ml Balance 0 ml medications Current Medications Medications Dose Ordered Sig/Kelly Route Start Time Stop Time Status Last Admin Dose Admin Sodium Chloride 1,000 ml @ 60 mls/hr [id number] IV 05/29/25 10:45 05/29/25 22:38 60 MLS/HR Acetaminophen 650 mg Q6HP PRN PO 05/29/25 10:45 Acetaminophen/ Hydrocodone Bitart 1 tab Q4HP PRN PO 05/29/25 10:45 05/29/25 18:33 1 TAB Morphine Sulfate 2 mg Q4HPRN PRN IV 05/29/25 11:00 05/30/25 06:15 2 MG Ceftriaxone Sodium 50 ml @ 100 mls/hr DAILY@09 IV 05/29/25 10:45 05/29/25 12:50 100 MLS/HR objective PATIENT: AMEYA BARRON ACCT: [id number] UNIT: [id number] : 1985 LOC: OVERFLOW ROOM / BED: 1012-ER / A AGE / SEX: 39 / F ADM STATUS: ADM IN SERVICE 1320 ORDERING PHYSICIAN: JAKE SHERIDAN MD PROCEDURE(s): ABPL - CT AB PEL WO CON-NO ORAL OR IV REASON: left ureteral stent ORDER NUMBER(s): [id number], ACCESSION NUMBER(s): [id number] EXAM: CT CT AB PEL WO CON-NO ORAL OR IV History: left ureteral stent Comparison Study: CT CT AB PEL WO CON-NO ORAL OR IV on DOS: 05/17/25, CT CT AB PEL WO CON-NO ORAL OR IV on DOS: 05/13/25 TECHNIQUE: Multidetector CT of the abdomen AND PELVIS without IV contrast. Axial, coronal and sagittal multiplanar reformats were obtained from the axial data set by the technologist. Radiation Dose Information: CT Dose: CTDI volume is 27.25 mGy. Dose-length product is 3.92 mGy*cm FINDINGS: Unchanged 1.2 cm partially calcified left inferolateral lower lobe solid nodule. Right middle lobe atelectasis. Partially visualized heart is unremarkable. Liver, spleen, gallbladder, pancreas and right adrenal glands unremarkable. 3.7 cm left adrenal nodule measuring up to 15 cm abutting the Adjacent Pancreatic tail. Splenule is noted adjacent to the spleen. Nonobstructing right renal calculi measuring up to 0.7 cm. The right kidney and ureter are otherwise unremarkable. Left-sided double-J stent with the proximal end of the left renal pelvis and the distal end within the urinary bladder. No left-sided hydro nephrosis. There is minimal fat stranding adjacent to the left renal pelvis and ureter which may be associated with the double-J stent. Urinary bladder is unremarkable. Uterus and adnexa are unremarkable. Stomach is unremarkable. Small bowel loops are unremarkable. Appendix is unremarkable. Large Amount of fecal material within the ascending colon with small to moderate amount of fecal material within the remainder of the colon. No evidence of intraperitoneal free air or free fluid. No evidence of aortic aneurysm. No significant lymphadenopathy. Tiny fat containing umbilical hernia. Partially visualized bilateral breast implants. Soft tissues unremarkable. No evidence of acute osseous abnormalities. IMPRESSION: Left-sided double-J stent with the proximal end of the left renal pelvis and distal end within the urinary bladder. No [place] nephrosis bilaterally. Minimal fat stranding adjacent to the left renal pelvis and left ureter which may be associated with the double-J stent. Infectious process can not be completely excluded. Nonobstructing right renal calculi. Indeterminate 3.7 cm left adrenal nodule. Adrenal protocol CT / MRI should be considered for further evaluation. ATED BY: ERIKA JAUREGUI DO DICTATED DATE/TIME: 05/29/25 1416 SIGNED BY: ERIKA JAUREGUI DO SIGNED DATE/TIME: 05/29/25 1416 CC: PATIENT: AMEYA BARRON ACCT: [id number] UNIT: [id number] : 1985 LOC: OVERFLOW ROOM / BED: [facility]-ER / A AGE / SEX: 39 / F ADM STATUS: ADM IN SERVICE 1143 ORDERING PHYSICIAN: VIRGIL HAM PROCEDURE(s): KIDUS - KIDNEY REASON: sp utereral stent, left flank pain ORDER NUMBER(s): [id number], ACCESSION NUMBER(s): [id number] CLINICAL HISTORY: sp utereral stent, left flank pain TECHNIQUE: Complete ultrasound exam of the kidneys and bladder was performed. COMPARISON: US RENAL AND BLADDER on DOS: 01/31/25 FINDINGS: The right kidney has normal echogenicity and measures 10.9 cm. There is no focal parenchymal abnormality or evidence for stone. There is no hydronephrosis. The left kidney has normal echogenicity and measures 9.1 cm. There is no focal parenchymal abnormality or evidence for stone. There is no hydronephrosis. There is a probable stent noted within the left renal pelvis. The bladder is grossly unremarkable. There is a stent within the bladder. IMPRESSION: Left ureteral stent. No hydronephrosis. ATED BY: LORENA DOE MD DICTATED DATE/TIME: 05/29/25 1239 SIGNED BY: LORENA DOE MD SIGNED DATE/TIME: 05/29/25 1239 CC: laboratory and microbiology Laboratory Tests 05/30/25 05:27 Test 05/30/25 05:27 Range/Units Serum Glucose 96 74-106 mg/dL Problem List Right nephrolithiasis missed on renal US and found on CT Scan AP NC Left ureteral stent intolerance Assessment/Plan Left ureteral stent in-situ Patient wishes to have it removed. She is refusing treatment of right kidney stone at this time. Plan discussed with: Patient, Other JAKE SHERIDAN MD May 30, 2025 08:26
[2025-05-30 10:55] LABS: Amphetamine Screen, Urine Neg (NEGATIVE); Barbiturate Scree,Urine Neg (NEGATIVE)
[2025-05-30 11:03] LABS: Benzodiazephine Screen, Urine Neg (NEGATIVE); Cannabinoid Screen, Urine Neg (NEGATIVE); Cocaine Screen, Urine Neg (NEGATIVE); Opiate Scree,Urine Pos (NEGATIVE); Phencyclidine Screen, Urine Neg (NEGATIVE)
[2025-05-30] MEDS ORDERED: fentaNYL CITRATE 100 MCG/2 ML VL ONE (14:13)
[2025-05-30] MEDS ORDERED: MIDAZOLAM HCL 2MG/2ML 2ml VIAL (1mg/ml) ONE (14:13)
[2025-05-30] MEDS ORDERED: PROPOFOL 10 MG/ML 20 ML IV ONE (14:25)
--- NOTE | 2025-05-30 14:28 | DVHOP2 ---
Operative Report - 2 Report Details Date: 05/30/25 Preop Diagnosis: Left ureteral stent, in-situ Left flank pain due to stent intolerance Right nephrolithiasis, nonobstructing 5 mm Postop Diagnosis: Same Surgeon: Jake Sheridan Anesthesiologist: Damion Anesthesia: Mac Consent: The patient was informed of the risks and benefits of the procedure. These include but are not limited to complications of anesthesia, postoperative infection, incomplete relief of symptoms, recurrence of symptoms, damage to blood vessels, nerves and tendons, deep venous thrombosis, pulmonary embolism and possible need for repeat surgery in the future. Indications for Surgery: Patient has a left ureteral stent placed after a recent ureteroscope epic laser lithotripsy. She is not tolerating the stent well and was admitted for pain management. She is here to undergo cystoscopy with left ureteral stent removal under anesthesia. I informed the patient that she has and I have an obstructing small 4-5 mm right nephrolithiasis. This could be treated at the same setting using lithotripsy, however patient refused. She would like to just proceed with stent removal and worry about her right kidney stone later as an outpatient. Name of Procedure Performed Cystoscopy with left ureteral stent removal Procedure Details Procedure Details: Patient was taken to the operating room and underwent general anesthesia. She was placed in dorsal lithotomy position with the area of the genitalia prepped and draped in usual sterile manner. Twenty-one [place] rigid cystoscope was used to inspect the urethra in the bladder. The stent is identified, grasped and removed without difficulty. Patient tolerated the procedure well. Bladder was decompressed and cystoscope was removed in entirety. Specimen: Left ureteral stent Condition Good Disposition Home JAKE SHERIDAN MD May 30, 2025 14:28
[2025-05-30] MEDS ORDERED: CIPR500T4 PO (16:03)
--- NOTE | 2025-05-30 16:07 | DVHDSRES ---
Discharge Summary Date of Admission Resident Creating Document: LEVY PANG RESIDENT May 29, 2025 at 10:38 Date of Discharge: May 30, 2025 Admitting Diagnosis UTI, Left lower abdominal pain likely due to nephrolithiasis Labs/Diagnostic Data: Laboratory Results Test 05/30/25 10:54 05/30/25 10:45 05/30/25 05:27 05/29/25 07:30 Vitamin B12 Level 427 pg/mL (211-911) Vitamin D 25-Hydroxy 82.3 ng/mL (30.0-100) Folic Acid 20.77 ng/mL (>5.38) Urine Opiates Screen Pos (NEGATIVE) Urine Fentanyl Screen Neg (NEGATIVE) Urine Barbiturates Screen Neg (NEGATIVE) Urine Phencyclidine Screen Neg (NEGATIVE) Urine Amphetamines Screen Neg (NEGATIVE) Urine Benzodiazepines Screen Neg (NEGATIVE) Urine Cocaine Screen Neg (NEGATIVE) Urine Cannabinoids Screen Neg (NEGATIVE) White Blood Count 5.9 10^3/uL (4.4-10.8) Red Blood Count 4.30 10^6/uL (4.0-5.20) Hemoglobin 12.5 g/dL (12.2-16.2) Hematocrit 37.4 % (36.0-46.0) Mean Corpuscular Volume 86.9 fL (80.0-100.0) Mean Corpuscular Hemoglobin 29.2 pg (28.0-32.0) Mean Corpuscular Hemoglobin Concent 33.6 g/dL (32.0-36.0) Red Cell Distribution Width 14.5 % (11.8-14.3) Platelet Count 300 10^3/uL (140-450) Mean Platelet Volume 8.8 fL (6.9-10.8) Neutrophils (%) (Auto) 62.0 % (37.0-80.0) Lymphocytes (%) (Auto) 25.1 % (10.0-50.0) Monocytes (%) (Auto) 9.0 % (0.0-12.0) Eosinophils (%) (Auto) 3.2 % (0.0-7.0) Basophils (%) (Auto) 0.7 % (0.0-2.0) Neutrophils # (Auto) 3.7 10 ^3/uL (1.6-8.6) Lymphocytes # (Auto) 1.5 10 ^3/uL (0.4-5.4) Monocytes # (Auto) 0.5 10 ^3/uL (0-1.3) Eosinophils # (Auto) 0.2 10 ^3/uL (0-0.8) Basophils # (Auto) 0 10 ^3/uL (0-0.2) Nucleated Red Blood Cells 0.1 % Prothrombin Time 10.4 sec (9.3-11.8) Prothrombin Time INR 0.98 (0.9-1.15) Activated Partial Thromboplast Time 31.2 SEC (24.5-34.5) Sodium Level 141 mmol/L (136-145) Potassium Level 4.0 mmol/L (3.5-5.1) Chloride Level 106 mmol/L (98-107) Carbon Dioxide Level 24 mmol/L (20-31) Anion Gap 11 (5-15) Blood Urea Nitrogen 19 mg/dL (9-23) Creatinine 0.94 mg/dL (0.550-1.02) Glomerular Filtration Rate Calc 80 mL/min (>90) BUN/Creatinine Ratio 20.2 (10.0-20.0) Serum Glucose 96 mg/dL (74-106) Hemoglobin A1c 5.4 % A1C (<5.7) Lactic Acid Level 1.0 mmol/L (0.4-2.0) Calcium Level 9.0 mg/dL (8.7-10.4) Magnesium Level 1.9 mg/dL (1.6-2.6) Total Bilirubin 0.4 mg/dL (0.2-1.0) Aspartate Amino Transferase (AST) 24 U/L (13-40) Alanine Aminotransferase (ALT) 33 U/L (7-40) Alkaline Phosphatase 80 U/L (46-116) Total Protein 6.9 g/dL (5.7-8.2) Albumin 4.1 g/dL (3.2-4.8) Thyroid Stimulating Hormone (TSH) 1.56 uIU/mL (0.55-4.78) Beta HCG, Quantitative 0.8 mIU/mL (1.5-4.2) Urine Color Yellow (Yellow) Urine Clarity Ex.turbid (Clear) Urine pH 6.0 (5.0-9.0) Urine Specific [place] 1.026 (1.001-1.035) Urine Protein 2+ (Negative) Urine Ketones Negative (Negative) Urine Blood 3+ /uL (Negative) Urine Nitrite Negative (Negative) Urine Bilirubin Negative (Negative) Urine Urobilinogen Normal mg/dL (Negative) Urine Leukocyte Esterase 2+ /uL (Negative) Urine RBC 5383 /hpf (0 - 4) Urine Microscopic WBC 113 /HPF (0-5) Urine Squamous Epithelial Cells Few /hpf (<5) Urine Bacteria Few /hpf (None Seen) Urine Glucose Normal mg/dL (Normal) Other Laboratory Tests 05/30/25 05:27 Brief Hx & Hospital Course: This is a 39-year-old female with a medical history of repaired ASD and VSD, hypertension, and recurrent nephrolithiasis. She recently had two urologic procedures: a left ureteral stent placed in March for obstructing nephrolithiasis, and a repeat left ureteral stent placement on May 20 for a 10-mm stone associated with severe left hydronephrosis. She was advised to have the stent removed within [address] Echols (urology), but has been unable to reach him. Since the procedure, she reports persistent abdominal and flank pain on the left side, prompting todays visit for evaluation and assistance with stent management. She denies fever, chills, dysuria, or urinary retention. Patient was seen by Urology and stent of the left ureter was removed. Patient was being treated for UTI with ceftriaxone. Patient was cleared by Urology for discharge. Patient is being discharged with a ciprofloxacin 500 mg p.o. b.i.d. for 7 days. Patient was advised to follow up with [facility] with the urine culture/PCP/Urology. Patient was hemodynamically stable on discharge. All questions answered. General: Alert, nontoxic. CV: Regular rate and rhythm. Lungs: Clear to auscultation. Abdomen: Soft, tender on the left side without rebound or guarding. : No CVA tenderness reported on exam. Neuro: Nonfocal. Extremities: No edema. Plan of care discussed with Dr. Lyman Consults/Reason for consult Patient: AMEYA BARRON Acct: [id number] : 1985 Loc: [facility] Age/Sex: 39/F Room: [address] [place] [address] / Bed: 1 Attending Phy: LEVY PANG RESIDENT Operative Report - 2 Report Details Date: 05/30/25 Preop Diagnosis: Left ureteral stent, in-situ Left flank pain due to stent intolerance Right nephrolithiasis, nonobstructing 5 mm Postop Diagnosis: Same Surgeon: Jake Echols Anesthesiologist: Damion Anesthesia: Mac Consent: The patient was informed of the risks and benefits of the procedure. These include but are not limited to complications of anesthesia, postoperative infection, incomplete relief of symptoms, recurrence of symptoms, damage to blood vessels, nerves and tendons, deep venous thrombosis, pulmonary embolism and possible need for repeat surgery in the future. Indications for Surgery: Patient has a left ureteral stent placed after a recent ureteroscope epic laser lithotripsy. She is not tolerating the stent well and was admitted for pain management. She is here to undergo cystoscopy with left ureteral stent removal under anesthesia. I informed the patient that she has and I have an obstructing small 4-5 mm right nephrolithiasis. This could be treated at the same setting using lithotripsy, however patient refused. She would like to just proceed with stent removal and worry about her right kidney stone later as an outpatient. Name of Procedure Performed Cystoscopy with left ureteral stent removal Procedure Details Procedure Details: Patient was taken to the operating room and underwent general anesthesia. She was placed in dorsal lithotomy position with the area of the genitalia prepped and draped in usual sterile manner. Twenty-one Lao rigid cystoscope was used to inspect the urethra in the bladder. The stent is identified, grasped and removed without difficulty. Patient tolerated the procedure well. Bladder was decompressed and cystoscope was removed in entirety. Specimen: Left ureteral stent Condition Good Disposition 2 Home JAKE ECHOLS MD May 30, 2025 14:28 DICTATED BY:JAKE ECHOLS MD DICTATED DATE/TIME:05/30/25 142 ELECTRONICALLY SIGNED BY:JAKE ECHOLS MD 05/30/25 1428 ELECTRONICALLY CO-SIGNED BY: Operations or Procedures [address] [address] Ph: [phone] DIAGNOSTIC IMAGING Diagnostic Imaging Report : [id number] Signed PATIENT: AMEYA BARRON ACCT: [id number] UNIT: [id number] : 1985 [facility] AGE / SEX: 39 / F ADM STATUS: ADM IN SERVICE 1320 ORDERING PHYSICIAN: JAKE ECHOLS MD PROCEDURE(s): ABPL - CT AB PEL WO CON-NO ORAL OR IV REASON: left ureteral stent ORDER NUMBER(s): [id number], ACCESSION NUMBER(s): [id number] EXAM: CT CT AB PEL WO CON-NO ORAL OR IV History: left ureteral stent Comparison Study: CT CT AB PEL WO CON-NO ORAL OR IV on DOS: 05/17/25, CT CT AB PEL WO CON-NO ORAL OR IV on DOS: 05/13/25 TECHNIQUE: Multidetector CT of the abdomen AND PELVIS without IV contrast. Axial, coronal and sagittal multiplanar reformats were obtained from the axial data set by the technologist. Radiation Dose Information: CT Dose: CTDI volume is 27.25 mGy. Dose-length product is 3.92 mGy*cm FINDINGS: Unchanged 1.2 cm partially calcified left inferolateral lower lobe solid nodule. Right middle lobe atelectasis. Partially visualized heart is unremarkable. Liver, spleen, gallbladder, pancreas and right adrenal glands unremarkable. 3.7 cm left adrenal nodule measuring up to 15 cm abutting the Adjacent Pancreatic tail. Splenule is noted adjacent to the spleen. Nonobstructing right renal calculi measuring up to 0.7 cm. The right kidney and ureter are otherwise unremarkable. Left-sided double-J stent with the proximal end of the left renal pelvis and the distal end within the urinary bladder. No left-sided hydro nephrosis. There is minimal fat stranding adjacent to the left renal pelvis and ureter which may be associated with the double-J stent. Urinary bladder is unremarkable. Uterus and adnexa are unremarkable. Stomach is unremarkable. Small bowel loops are unremarkable. Appendix is unremarkable. Large Amount of fecal material within the ascending colon with small to moderate amount of fecal material within the remainder of the colon. No evidence of intraperitoneal free air or free fluid. No evidence of aortic aneurysm. No significant lymphadenopathy. Tiny fat containing umbilical hernia. Partially visualized bilateral breast implants. Soft tissues unremarkable. No evidence of acute osseous abnormalities. IMPRESSION: Left-sided double-J stent with the proximal end of the left renal pelvis and distal end within the urinary bladder. No [place] nephrosis bilaterally. Minimal fat stranding adjacent to the left renal pelvis and left ureter which may be associated with the double-J stent. Infectious process can not be completely excluded. Nonobstructing right renal calculi. Indeterminate 3.7 cm left adrenal nodule. Adrenal protocol CT / MRI should be considered for further evaluation. ATED BY: ERIKA JAUREGUI DO DICTATED DATE/TIME: 05/29/256 SIGNED BY: ERIKA JAUREGUI DO SIGNED DATE/TIME: 05/29/25 1416 CC: [place] [id number] Ph: [phone] DIAGNOSTIC IMAGING Diagnostic Imaging Report : [id number] Signed PATIENT: AMEYA BARRON ACCT: [id number] UNIT: [id number] : 1985 [facility]GE / SEX: 39 / F ADM STATUS: ADM IN SERVICE 1143 ORDERING PHYSICIAN: VIRGIL HAM RESIDENT PROCEDURE(s): KIDUS - KIDNEY REASON: sp utereral stent, left flank pain ORDER NUMBER(s): [id number], ACCESSION NUMBER(s): [id number] CLINICAL HISTORY: sp utereral stent, left flank pain TECHNIQUE: Complete ultrasound exam of the kidneys and bladder was performed. COMPARISON: US RENAL AND BLADDER on DOS: 01/31/25 FINDINGS: The right kidney has normal echogenicity and measures 10.9 cm. There is no focal parenchymal abnormality or evidence for stone. There is no hydronephrosis. The left kidney has normal echogenicity and measures 9.1 cm. There is no focal parenchymal abnormality or evidence for stone. There is no hydronephrosis. There is a probable stent noted within the left renal pelvis. The bladder is grossly unremarkable. There is a stent within the bladder. IMPRESSION: Left ureteral stent. No hydronephrosis. ATED BY: LORENA DOE MD DICTATED DATE/TIME: 05/29/25 1239 SIGNED BY: LORENA DOE MD SIGNED DATE/TIME: 05/29/25 1239 CC: Condition at Discharge: Stable Final Diagnosis/Problems List UTI Status post ureteric stent removal Nephrolithiasis Hypertension Suspected LONG likely due to VMN MORBID OBESITY Discharge Disposition: Home Discharge Instruct/Medications Diet: Cardiac 2g Na,low cholest Activity: No Restrictions, As Tolerated Follow Up/Referral: [facility] clinic-with urine culture report PCP with urine culture report Urology Medications: As above Scheduled Amlodipine Besylate (Amlodipine Besylate), Unknown Dose PO DAILY, (Reported) Ciprofloxacin Hcl (Ciprofloxacin Hcl), 1 TAB PO BID Naloxone HCl (Narcan), 4 MG NA [employer] Nitrofurantoin (Nitrofurantoin), 1 CAP PO BID Scheduled PRN Hydrocodone-Acetaminophen (Hydrocodone/Acetaminophen 5-325 mg), 1 TAB PO Q6HP PRN Hydrocodone-Acetaminophen (Hydrocodone Bitartrate/AC 10-325 mg), 1 TAB PO QIDP PRN Ondansetron Odt 4MG Tab (Zofran Po), 4 MG PO Q6HP PRN Discharge Statement: "Patient was advised to return to the ER or call 911 if any headaches, dizziness, shortness of breath, chest pain, abdominal pain, bleeding, fevers, or worsening of medical condition. Patient was counseled about treatment plan, medications, possible side effects, patientverbalized understanding. All questions were answered to the best of my ability. This discharge took greater then 30 minutes in planning, reviewing documentation, counseling the patient, and discussing with other team members." ASSESSMENT ASSESSMENT Assessment UTI Status post ureteric stent removal Visit Coding STANDARD RES Billing Provider: EKATERINA LYMAN MD Date of Service if different f: May 30, 2025 Common Visit Codes: 16343-PCT/OBS DISCH DAY >30min LEVY PANG RESIDENT May 30, 2025 16:07
--- NOTE | 2025-06-01 09:42 | ECG ---
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
== END 2025-05-30 17:30 | disposition home or self-care (01) | DRG 690 ==
LOC: ER 06:59 → OVERFLOW 10:38 → EAST 22:07
PROVIDERS: ADMIT Internal Medicine Geriatric Medicine; ATTEND Internal Medicine Geriatric Medicine
PROC: 0TP98DZ Removal of Intraluminal Device from Ureter, Via Natural or Artificial Opening Endoscopic (ICD-10-PCS; principal; 2025-05-30 14:14)
DX: N30.01 Acute cystitis with hematuria (principal); E66.01 Morbid (severe) obesity due to excess calories; I10 Essential (primary) hypertension; Z68.42 Body mass index [BMI] 45.0-49.9, adult; N20.0 Calculus of kidney; Z88.0 Allergy status to penicillin; Z88.2 Allergy status to sulfonamides; Z87.442 Personal history of urinary calculi; Z82.49 Family history of ischemic heart disease and other diseases of the circulatory system
CPT/HCPCS: 36415; 74176; 76775; 80048; 80053; 80307; 81001; 82306; 82607; 82746; 83036; 83605; 83735; 84443; 84702; 85025; 85610; 85730; 86850; 86900; 86901; 93005; 96365; G0378; J1100; J2250; J2405; J2704